=== PATIENT | male | born 1945 | race Caucasian/White ===

== ENCOUNTER → 2017-10-04 10:44 | Outpatient (CLI) | payer MEDICARE, SELFPAY ==
--- NOTE | 2017-10-04 10:52 | VDLE_ITS ---
Reason For Study: swelling Procedure LEFT Exam performed in department. CFV is compressible, spontaneous, phasic, The exam was diagnostic. competent, and demonstrates normal A preliminary report was called and/or faxed augmentation. to Dr. Hairston. FV is compressible, spontaneous, phasic, competent and demonstrates normal augmentation. POP V is compressible, spontaneous, phasic, competent and demonstrates normal augmentation. T/P Trunk is compressible. PTV is compressible. LT PerV is compressible. GSV is partially harvested. Interpretation Summary Deep veins of the left lower extremity are patent and compressible segmentally. There is no evidence of left lower extremity deep vein thrombosis. Valvular competence appears intact within the proximal deep venous system on the left . The left great saphenous vein has been partially harvested. Ordering Physician: Arnulfo Cope Performed By: Sly Auguste RVLeslye
== END ==
PROVIDERS: Family Provider Family Medicine; PCP Family Medicine; Visit Provider Family Medicine
DX: M79.89 Other specified soft tissue disorders (principal)
CPT/HCPCS: 93971

== ENCOUNTER 2017-12-06 17:16 | Inpatient (IN) | payer MEDICARE, SELFPAY ==
[2017-12-06] VITALS (8 sets, daily range): BP systolic 71–113; BP diastolic 50–77; PULSE 86–101; RESP 14–29; TEMP 35.7–36.2; O2SAT 95–100; BMI 20.3; BMI 20.1; BMI 20.2
--- NOTE | 2017-12-06 17:23 | CT_ITS ---
STUDY: CT BRAIN WITHOUT CONTRAST REASON FOR EXAM: Male, 71 years old. Found on floor. Lethargic and diaphoretic. Increasing number of falls. RADIATION DOSAGE (If Supplied By Facility): CTDIvol = ( 44.99 ) mGy, DLP = ( 812.98 ) mGycm TECHNIQUE: Transaxial CT imaging of the brain was performed without administration of intravenous contrast material. Individualized dose optimization techniques were used for this CT. COMPARISON: MRI of the brain, August 18, 2013. FINDINGS: Normal soft tissue structures. Normal calvarium. There is moderate cerebral atrophy with widening of the extra-axial spaces and ventricular dilatation. There are areas of decreased attenuation within the white matter tracts of the supratentorial brain, consistent with microvascular disease changes. Normal basal ganglia and thalami. Normal brainstem. Normal cerebellum. There is no intracranial hemorrhage. There are no findings of an acute ischemic infarction. Normal visualized paranasal sinuses. CT/Brain/Head without Contrast IMPRESSION: Chronic involutional changes without evidence of acute intracranial or calvarial abnormality. There is no major interval change. Electronically Signed: Sanju Mejía DO at 18:13 EDT Tel [phone], Service support ,
--- NOTE | 2017-12-06 17:23 | EKG12_ITS ---
Test Reason : DYSRHYTHMIA Blood Pressure : / mmHG Vent. Rate : 079 BPM Atrial Rate : 079 BPM P-R Int : 158 ms QRS Dur : 086 ms QT Int : 424 ms P-R-T Axes : 090 082 079 degrees QTc Int : 486 ms Normal sinus rhythm Possible Right atrial enlargement Prolonged QT Abnormal ECG Confirmed by J CARLOS CASTILLO, THOMAS ([id number]), graphic editor VALERIO ANGELO ([id number]) on 12/11/2017 2:47:32 PM Referred By: MUNIRA Confirmed By:THOMAS WHITMAN MD
[2017-12-06] MEDS: 0.9% Normal Saline 1,000 ML 1000 ML IV (17:32)
--- NOTE | 2017-12-06 17:35 | RAD_ITS ---
STUDY: X-RAY CHEST REASON FOR EXAM: Male, 71 years old. Fall. Nausea and vomiting. Lethargy. TECHNIQUE: Single AP portable view of the chest. COMPARISON: January 25, 2012. FINDINGS: Telemetry wires overlie the chest. There is hyperinflation of the lungs consistent with chronic obstructive lung disease (COPD). There is no new mass or infiltrate. There is no demonstrated pleural abnormality. Sternal cerclage wires and vascular clips are present from a prior sternotomy and coronary artery bypass graft procedure (CABG). The heart is normal in size. Normal mediastinum and melanie. Normal visualized pulmonary arteries. There is atherosclerotic calcification of the aortic arch with tortuosity. No visualized osseous changes. There is no demonstrated abnormality of the visualized soft tissue structures of the upper abdomen. RAD/Chest 1 View (Portable) IMPRESSION: COPD and evidence of prior CABG procedure. There is no acute findings or interval change. Electronically Signed: Sanju Mejía DO at 17:59 EDT Tel [phone], Service support ,
[2017-12-06] MEDS: 0.9% Normal Saline 1,000 ML 500 ML IV (17:50)
[2017-12-06 17:52] LABS: Absolute Lymphocyte Count 1.36 X10^3/ul (0.83-4.51); Absolute Neutrophil Count 12.8 X10^3/uL (2.0-7.7); Basophil# 0.03 X10^3/uL; Basophil% 0.2 % (0-1); Eosinophils% 0.7 % (0-5); Hematocrit 35.1 % (40-54); Hemoglobin 11.4 g/dl (13.0-16.5); Lymphocyte # 1.36 X10^3/ul (4.0); Lymphocyte % 8.9 % (19-41); Mean Corp Hgb Conc 32.5 g/gl (32-36); Mean Corpuscular Hgb 29.5 pg (27.0-32.0); Mean Corpuscular Volume 90.7 fL (80-94); Mean Platelet Vol. 9.6 fl (6.2-12.0); Monocyte# 0.97 X10^3/uL; Monocyte% 6.3 % (0-10); Neutrophil # 12.77 X10^3/uL (2.7-7.7); Neutrophil % 83.4 % (47-70); Platelet Count 107 K/mm3 (150-450); RBC Distribution Width CV 16.1 % (11.6-14.6); Red Blood Count 3.87 M/mm3 (4.6-6.2); White Blood Count 15.3 K/mm3 (4.4-11.0)
[2017-12-06 17:53] LABS: POSITIVE COUNT NO; POSITIVE DIFFERENTIAL NO; POSITIVE MORPHOLOGY NO
[2017-12-06 17:57] LABS: Bacteria 0 SEEN /hpf (None Seen)
--- NOTE | 2017-12-06 18:00 | RAD_ITS ---
STUDY: X-RAY - LUMBAR SPINE REASON FOR EXAM: Male, 71 years old. Fall. Lower back pain. TECHNIQUE: 3 view(s) of the lumbar spine were obtained. COMPARISON: None FINDINGS: There is straightening of the normal lumbar lordosis. There is no substantial scoliosis. There is a normal alignment of the vertebrae. There is multilevel endplate spondylosis of the lumbar vertebrae. There is multi-level degenerative disc disease with multi-level disc space narrowing. There is no evidence of acute fracture or loss of vertebral axial height. There is atherosclerotic calcification of the abdominal aorta without a demonstrated aneurysm. RAD/Lumbar Spine 2 or 3 Views IMPRESSION: Degenerative changes of the spine, as detailed above. Electronically Signed: Sanju Mejía DO at 18:18 EDT Tel [phone], Service support ,
[2017-12-06 18:04] LABS: ALB/GLOB Ratio 1.2 RATIO (0.9-2.4); AST(SGOT) 19 U/L (15-37); Alanine Aminotransfer ALT/SGPT 24 U/L (16-61); Albumin, Serum 3.3 g/dL (3.2-5.0); Alkaline Phosphatase 70 U/L (45-117); Anion Gap 10 (5-15); BUN 32 mg/dL (7-18); BUN/Creat Ratio 21.9 RATIO (10-20); Calcium,Total 8.3 mg/dL (8.5-10.1); Chloride 104 mmol/L (98-107); Creatinine, Serum 1.46 mg/dL (0.70-1.30); EST Glomerular Filtration Rate 50 mL/min (>60); Est Glom Filt Rate - Afr Amer 61 mL/min (>60); Estimated Creatinine Clearance 55.08 ml/min; Globulin 2.7 g/dL (2.2-4.2); Glucose 251 mg/dL (74-106); Potassium 4.3 mmol/L (3.5-5.1); Sodium Level 139 mmol/L (136-145)
--- NOTE | 2017-12-06 18:15 | ED.DCSUM_ITS ---
- ER Visit Summary Date of Service: 12/06/17 Chief Complaint: Fall, weakness History of Present Illness: The patient is a 71 M who has had ongoing weakness for a while. Today he got up and fell. He hit the side of his head next to a plant. He has had a couple of falls in the past couple months. His states that she attributes it to his MS. Patient complains of pain in his lower back. No LOC when he fell. Patient has a hard time ambulating. The works during the day and she watches him on cameras at the house. No chest pain or shortness of breath. Physical Examination: Vital signs are reviewed and are significant for slight hypotension upon arrival. HEENT exam is normal without trauma. Neck is nontender. Heart is regular rate and rhythm. Lungs are rhonchorous bilaterally. Abdomen is soft and nontender. Back is diffuse lumbar tenderness to palpation. Extremities have evidence of peripheral vascular disease on the lower legs. His neuro exam reveals his GCS is 14. He keeps his eyes closed. He is diffuse overall weakness. Test Results: EKG is sinus rhythm with a rate of 79. Nonspecific ST and T-wave changes. Chest x-ray reveals COPD changes. Lumbar x-ray reveals degenerative changes. CAT scan of the head reveals chronic changes. White blood cell count 10.3, hemoglobin 11.4. Creatinine 1.46. Liver enzymes normal. Urinalysis without infection. Troponin normal. Lactate 3.3 Emergency Department Course and Treatment: Patient was given multiple liters of saline. There are no signs of infection. I feel that his lactic acidosis is likely due to dehydration. Family states he does not eat or drink well at home. His albumin is on the lower end of normal. Repeat blood pressure at 1920 is 99/80. I feel the patient requires admission for further evaluation and IV fluids. He may need physical therapy as well. Treatment Plan: [] Disposition: Admit Impression: Generalized weakness, dehydration, lumbar contusion, lactic acidosis This note was generated with [employer] dictation software. It may contain incorrect words, spelling, and punctuation that were not noted in review of the chart prior to signing ED Disposition - Plan for ED Patient: Chief Complaint: General Illness Referrals: Terell Carvalho MD [Primary Care Provider] -
[2017-12-06 18:40] LABS: Lactic Acid 3.3 mmol/L (0.4-2.0)
[2017-12-06 18:47] LABS: Color, Urine Yellow (Yellow); Glucose, Dipstick Normal (Normal); Ketone-Dipstick 5 mg/dl (Negative); Leukocyte Esterase-Dipstick 25 /ul (Negative); Nitrite-Dipstick Negative (Negative); Occult Blood-Urine 250 /ul (Negative); Protein-Dipstick 100 mg/dl (Negative); Specific Gravity, Urine 1.025 (1.002-1.030); Urine Bilirubin Dipstick Negative (Negative); Urine Clarity Clear (Clear); Urine Urobilinogen 1 mg/dl (Normal)
[2017-12-06 18:56] LABS: Mucous, Urine 1+ /hpf (<or=2+); Red Blood Cells-Urine 0-5 SEEN /hpf (0-5); Squamous Epithelial Cells - UA 0-5 SEEN /hpf (0-5); White Blood Cells 0 SEEN /hpf (0-5)
[2017-12-06 18:57] LABS: Hyaline Cast 10-25 SEEN /lpf (0-5)
[2017-12-06] MEDS: Ketorolac 30 MG/ML Syringe IV (19:17)
[2017-12-06] MEDS: 0.9% Normal Saline 1,000 ML 999 ML IV ×2 (19:17)
--- NOTE | 2017-12-06 19:32 | PCM.HP.STD ---
Problem List (1) Septic shock Status: Acute (2) Weakness Status: Acute History of Present Illness Date of Admission: 12/06/17 Chief Complaint: Multiple falls The patient is a 71 year old M with a significant history of CAD status post CABG in 2011; multiple sclerosis, COPD, hypertension; hyperlipidemia; left knee replacement who was brought to the emergency department because of a fall on the same day of his admission. Per family the patient might have slipped whiles he was getting up in his chair to use the bathroom. Family thinks that the patient may have hit his head when he fell. Patient complained of lightheadedness before his fall. His family reports the patient was in a confused state after the fall Patient reports of dizziness before falling. Patient reports of back pain. Of note, family report that patient has had multiple falls. His family reported patient's hardly drinks water. He typically drinks Ensure and orange juice. At the ED patient was found to have elevated lactic acid of 3.3; leukocytosis of 15.[address] head was unremarkable for any acute pathology. Likewise CT of his lumbar spine and chest x-ray did not show any acute pathology. Past Medical History Allergies Penicillins [PCN] Allergy (Verified 12/06/17 17:23) Angioedema all cillins Allergy (Uncoded 12/06/17 17:23) Angioedema Home Medications: Ambulatory Orders Medication Instructions Recorded Aspirin [Aspirin, Baby] 81 mg PO DAILY 12/06/17 Atorvastatin Calcium 40 mg PO QHS 12/06/17 Budesonide [Budesonide] 2 puff IH DAILY 12/06/17 Duloxetine HCl [Duloxetine HCl] 30 mg PO DAILY 12/06/17 Finasteride [Proscar] 5 mg PO DAILY 12/06/17 Ipratropium/Albuterol Sulfate 2 puff IH DAILY 12/06/17 [Duoneb] Metoprolol Tartrate [Lopressor 25 mg PO BID 12/06/17 (beta shena)] Multivitamin [Daily Multiple 1 each PO DAILY 12/06/17 Vitamin] Tamsulosin HCl [Flomax] 0.4 mg PO DAILY 12/06/17 Vitamin B-12 1 tab PO DAILY 12/06/17 Surgical History: - - CABG, left knee replacement Psychiatric History: No pertinent psych hx Lives: Spouse/ Significant Other Smoking Status: Current every day smoker Alcohol: None - *Family History Maternal History Items: No pertinent history Paternal History Items: No pertinent history Review of Systems Constitutional: Denies: Chills, Fever, Weight Change HEENT: Denies: Head Aches, Sinus Congestion, Sinus Drainage Cardiovascular: Denies: Chest Pain, Palpitations Respiratory: Denies: Cough, Shortness of breath at rest, Sputum production Gastrointestinal: Denies: Abdominal Pain, Nausea, Vomiting Genitourinary: Denies: Dysuria Musculoskeletal: Reports: Back Pain Skin: Reports: - - Abrasion of the right back, - - Operation right knee Neurological: Reports: Balance problems Psychiatric: Denies: Anxiety, Depression, Homicidal Ideations, Suicidal Ideations Hematologic/ Lymphatic: Denies: Easy Bruising, Easy Bleeding VTE Information - Inpt Only VTE Present on Admission: No VTE Mechan Device Prophylaxis: None VTE Pharm Prophylaxis ordered?: Yes Patient Problems: Active and Suspected Problems Septic shock (Acute) Weakness (Acute) - Physical Exam General: Alert, Oriented x3, Cooperative HEENT: Atraumatic, PERRLA, EOMI, Normocephalic Neck: Supple, No JVD, Negative Carotid Bruits Lungs: Clear to auscultation, Normal air movement Cardiovascular: Regular rate Abdomen: Bowel Sounds Present, Soft, Non Tender Extremities: No edema, Capillary Refill Less than 3 Seconds Skin: - - Abrasion on the right back; and abrasion on the right knee. Musculoskeletal: No Muscle Wasting Lymphatic: No Cervical, Supraclavicular, or Inguinal Adenopathy Neurological: - - Hard of hearing Psych/Mental Status: Normal Affect Vital Signs Temp Pulse Resp BP Pulse Ox 97.1 F L 95 24 H 86/57 L 96 12/06/17 17:17 12/06/17 19:00 12/06/17 19:00 12/06/17 19:00 12/06/17 19:00 Oxygen Delivery Method Nasal Cannula Weight: 83.915 kg Body Mass Index (BMI) 20.3 Laboratory Tests Past 24 Hrs 12/06/17 12/06/17 12/06/17 17:27 17:27 17:27 WBC 15.3 H RBC 3.87 L Hgb 11.4 L Hct 35.1 L MCV 90.7 MCH 29.5 MCHC 32.5 RDW 16.1 H RDW Differential 53.0 H Plt Count 107 L MPV 9.6 Immature Gran % (Auto) 0.500 Neut % (Auto) 83.4 H Lymph % (Auto) 8.9 L [place] % (Auto) 6.3 Eos % (Auto) 0.7 Baso % (Auto) 0.2 Absolute Neuts (auto) 12.8 H Absolute Lymphs (auto) 1.36 Total Counted Not Reportable Sodium 139 Potassium 4.3 Chloride 104 Carbon Dioxide 25.0 Anion Gap 10 BUN 32 H Creatinine 1.46 H Estim Creat Clear Calc 55.08 Est GFR (MDRD) Af Amer 61 Est GFR (MDRD) Non-Af 50 L BUN/Creatinine Ratio 21.9 H Glucose 251 H Lactic Acid 3.3 H Calcium 8.3 L Total Bilirubin 0.60 AST 19 ALT 24 Alkaline Phosphatase 70 Troponin I < 0.015 Total Protein 6.0 L Albumin 3.3 Globulin 2.7 Albumin/Globulin Ratio 1.2 Urine Color Urine Clarity Urine pH Ur Specific [place] Urine Protein Urine Glucose (UA) Urine Ketones Urine Occult Blood Urine Nitrite Urine Bilirubin Urine Urobilinogen Ur Leukocyte Esterase Urine RBC Urine WBC Ur Squamous Epith Cells Urine Bacteria Hyaline Casts Urine Mucus 12/06/17 17:50 WBC RBC Hgb Hct MCV MCH MCHC RDW RDW Differential Plt Count MPV Immature Gran % (Auto) Neut % (Auto) Lymph % (Auto) [place] % (Auto) Eos % (Auto) Baso % (Auto) Absolute Neuts (auto) Absolute Lymphs (auto) Total Counted Sodium Potassium Chloride Carbon Dioxide Anion Gap BUN Creatinine Estim Creat Clear Calc Est GFR (MDRD) Af Amer Est GFR (MDRD) Non-Af BUN/Creatinine Ratio Glucose Lactic Acid Calcium Total Bilirubin AST ALT Alkaline Phosphatase Troponin I Total Protein Albumin Globulin Albumin/Globulin Ratio Urine Color Yellow Urine Clarity Clear Urine pH 5.0 Ur Specific [place] 1.025 Urine Protein 100 H Urine Glucose (UA) Normal Urine Ketones 5 H Urine Occult Blood 250 H Urine Nitrite Negative Urine Bilirubin Negative Urine Urobilinogen 1 H Ur Leukocyte Esterase 25 H Urine RBC 0-5 SEEN Urine WBC 0 SEEN Ur Squamous Epith Cells 0-5 SEEN Urine Bacteria 0 SEEN Hyaline Casts 10-25 SEEN Urine Mucus 1+ Assessment/Plan All Active Problems Septic shock (Acute) Weakness (Acute) The patient is a 71 year old M with a significant history of CAD status post CABG in 2011; multiple sclerosis, COPD, hypertension; hyperlipidemia; left knee replacement who was brought to the emergency department because of a fall ; and notably had a elevated lactic acid; leukocytosis and unresponsive to IV boluses concerning for septic shock. Probable septic shock Initially his lactic acidosis was attributed to dehydration. And his fall was attributed to his history of multiple sclerosis and weakness However because patient has received about 3000 MS of IV fluids and continues to have hypotension septic shock is a consideration. Blood cultures ?2 ordered Urine culture ordered The patient is allergic to penicillin Broad-spectrum antibiotics with vancomycin and meropenem started. Another bolus of normal saline 1000 mL's ordered. If patient does not respond to normal saline infusion patient will be transferred to the intensive care units for closer monitoring and likely will be started on pressors. Multiple falls This could be attributed to weakness and multiple sclerosis. Vitamin B12 and vitamin D ordered Schedule Tylenol for pain and as needed oxycodone. Physical therapy and occupational therapy to work with patient. CHAPINCITO His creatinine on admission was 1.46. Creatinine on 03/20/2017 was 1.14; and on 11/21 was 1.13 This could be due to sepsis or prerenal from hypovolemia. Abrasion on right knee and right back Dressing to right knee Wound care consult. CAD status post CABG Aspirin and Lipitor continued COPD Not in acute flare DuoNeb as needed Budesonide continued BPH finasteride continued Depression/anxiety Cymbalta continued DVT prophylaxis Subcutaneous Lovenox Code Visit Inpatient E&M: 38899 Init Hosp L3
[2017-12-06 21:42] LABS: Reflex Lactate? Y
[2017-12-06] MEDS: Docusate Sodium 100 MG Capsule PO (23:10)
[2017-12-06] MEDS: Atorvastatin Calcium 40 MG Tablet PO (23:10)
[2017-12-06] MEDS: 0.9% Normal Saline 1,000 ML 100 ML IV (23:11)
[2017-12-06 23:20] LABS: Lactic Acid 3.2 mmol/L (0.4-2.0)
[2017-12-07] VITALS (26 sets, daily range): BP systolic 25–112; BP diastolic 0–69; PULSE 78–120; RESP 14–36; TEMP 35.4–37.2; O2SAT 86–100
--- NOTE | 2017-12-07 01:54 | PCM.RX.CS ---
Consult Pharmacy has been consulted to manage selected antiobiotic: Vancomycin Type of Consult: New start Suspected Infection: Other Prior Doses of Antibiotics Received/Current Regimen: Medications Vancomycin HCl 1,500 mg/ (Sodium Chloride) 530 mls @ 250 mls/hr IV Q24H ANKIT Discontinued Medications Vancomycin HCl 1,250 mg/ (Sodium Chloride) 275 mls @ 183.3 mls/hr IV X1 ONE Stop: 12/07/17 01:21 Last Admin: 12/07/17 01:42 Dose: 183.3 mls/hr Labs: Sodium 139 mmol/L (136-145) 12/06/17 17:27 Potassium 4.3 mmol/L (3.5-5.1) 12/06/17 17:27 Chloride 104 mmol/L (98-107) 12/06/17 17:27 Carbon Dioxide 25.0 mmol/L (21.0-32.0) 12/06/17 17:27 Anion Gap 10 (5-15) 12/06/17 17:27 BUN 32 mg/dL (7-18) H 12/06/17 17:27 Creatinine 1.46 mg/dL (0.70-1.30) H 12/06/17 17:27 Est GFR (MDRD) Af Amer 61 mL/min (>60) 12/06/17 17:27 Est GFR (MDRD) Non-Af 50 mL/min (>60) L 12/06/17 17:27 BUN/Creatinine Ratio 21.9 RATIO (10-20) H 12/06/17 17:27 Glucose 251 mg/dL (74-106) H 12/06/17 17:27 Weight used for dosin.3 kg Estimated Creatinine Clearance: 55 Goal Trough: 10-15 mcg/mL Pharmacy Plan for Drug Dosing: Pharmacy Service will continue to monitor and adjust dosing as required. Follow-Up Labs: Trough Vancomycin Labs to be done on [date and time ordered]: 12/09/17 @7382
[2017-12-07] MEDS: 0.9% Normal Saline 1,000 ML 999 ML IV ×3 (02:00→10:10)
--- NOTE | 2017-12-07 03:15 | NURSING ---
dr notified again of the pts low bp after the ns bolus, /, ordered another ns bolus, making this the 6th liter of fluid. will transfer to icu if the bp is below sbp 90 again.
[2017-12-07 04:10] LABS: Absolute Neutrophil Count 18.3 X10^3/uL (2.0-7.7); Basophil# 0.03 X10^3/uL; Basophil% 0.1 % (0-1); Differential Indicated SCAN CRITERIA MET; Hematocrit 23.7 % (40-54); Hemoglobin 7.6 g/dl (13.0-16.5); Lymphocyte % 3.3 % (19-41); Mean Corp Hgb Conc 32.1 g/gl (32-36); Mean Corpuscular Volume 93.7 fL (80-94); Mean Platelet Vol. 10.5 fl (6.2-12.0); Monocyte# 1.88 X10^3/uL; Monocyte% 8.9 % (0-10); Neutrophil # 18.29 X10^3/uL (2.7-7.7); Neutrophil % 86.4 % (47-70); POSITIVE COUNT NO; POSITIVE DIFFERENTIAL YES; POSITIVE MORPHOLOGY NO; Platelet Count 74 K/mm3 (150-450); RBC Distribution Width CV 15.9 % (11.6-14.6); RBC Distribution Width SD 51.7 fl (35.1-43.9); Red Blood Count 2.53 M/mm3 (4.6-6.2); White Blood Count 21.2 K/mm3 (4.4-11.0)
--- NOTE | 2017-12-07 04:27 | NURSING ---
pt has only about 20cc urine output in his gillespie, notified, ordered to irrigate it to make sure it is working and it is working well, 30cc ns flushed and had great return.
[2017-12-07 04:30] LABS: Anion Gap 6 (5-15); BUN 37 mg/dL (7-18); BUN/Creat Ratio 19.9 RATIO (10-20); Calcium,Total 7.2 mg/dL (8.5-10.1); Chloride 117 mmol/L (98-107); Creatinine, Serum 1.86 mg/dL (0.70-1.30); EST Glomerular Filtration Rate 38 mL/min (>60); Est Glom Filt Rate - Afr Amer 46 mL/min (>60); Estimated Creatinine Clearance 42.92 ml/min; Glucose 124 mg/dL (74-106); Potassium 5.3 mmol/L (3.5-5.1); Sodium Level 144 mmol/L (136-145)
[2017-12-07 04:31] LABS: Lactic Acid 3.6 mmol/L (0.4-2.0)
--- NOTE | 2017-12-07 04:31 | NURSING ---
pts lactic back, higher 3.6, dr notified.
--- NOTE | 2017-12-07 04:40 | NURSING ---
pt to be transfered to icu for renal failure, hypotention 90/56 and lactic of 3.6.
--- NOTE | 2017-12-07 04:45 | NURSING ---
Report called to Marycarmen BARRON in ICU. Pt being transferred for elevated lactic and hypotension. , Luda, called and notified.
[2017-12-07] MEDS: Acetaminophen 325 MG Tablet 650 MG PO (05:08)
[2017-12-07] MEDS: Hydrocortisone Sod Succinate 100 MG/2 ML Vial 50 MG IV (05:39)
[2017-12-07] MEDS: 0.9% NaCl Peripheral Flush Adult/Peds IV (05:39)
[2017-12-07 05:55] LABS: Differential Comment SCANNED
[2017-12-07 06:04] LABS: International Normalized Ratio 1.6; Prothrombin Time (Protime)PT. 18.7 SECONDS (11.7-14.9)
--- NOTE | 2017-12-07 06:45 | NURSING ---
Dr. Galvan at bedside preparing for central line placement. Pt provided education regarding procedure denies questions.
[2017-12-07 06:49] LABS: M R Staph aureus DNA By PCR Negative (Negative); Probe Check PASS; Specimen Processing Control PASS
[2017-12-07 06:54] LABS: Fibrinogen 113 mg/dl (203-444)
--- NOTE | 2017-12-07 07:03 | NURSING ---
Dr. Galvan successfully placing CVC to RIJ. Dr. Puga bedside. Pt tolerating well.
[2017-12-07 07:05] LABS: D-Dimer Quantitative (DVT/PE) > 20.00 FEU/ug/m (0.27-0.49)
--- NOTE | 2017-12-07 07:20 | RAD_ITS ---
STUDY: X-RAY CHEST REASON FOR EXAM: Male, 71 years old. Line placement TECHNIQUE: 2 AP portable views, 2 views needed as the first you did not include the costophrenic angles. COMPARISON: Yesterday FINDINGS: EKG leads overlie the chest. A right IJ central venous catheter is been placed since the previous study, tip is in the mid SVC. No pneumothorax or mediastinal shift. Lungs are hyperexpanded with chronic interstitial changes, no superimposed acute pulmonary process. There is no demonstrated pleural abnormality. Sternal cerclage wires and vascular clips are present from a prior sternotomy and coronary artery bypass graft procedure (CABG). Normal mediastinum and melanie. Normal visualized pulmonary arteries. Normal visualized aortic arch and descending thoracic aorta. There are diffuse degenerative changes of the visualized thoracic spine. There is degenerative osteoarthritis of the bilateral shoulders. There is no demonstrated abnormality of the visualized soft tissue structures of the upper abdomen. RAD/CXR for Line Placement IMPRESSION: Right IJ central venous catheter tip in the mid SVC, no pneumothorax or mediastinal shift. No acute pulmonary process Electronically Signed: Javier Ryan MD at 8:10 EDT , Service support ,
--- NOTE | 2017-12-07 07:28 | CT_ITS ---
STUDY: CT ABDOMEN AND PELVIS WITH AND WITHOUT CONTRAST REASON FOR EXAM: Male, 71 years old. Right lower quadrant pain, sepsis RADIATION DOSAGE (If Supplied By Facility): CTDIvol = ( 21.09 ) mGy, DLP = ( 2431.67 ) mGycm TECHNIQUE: Transaxial images were obtained from the dome of the diaphragm to the symphysis pubis without oral contrast. 100 ml of Isovue 300 contrast was administered. Sagittal and coronal images were reconstructed. Delayed images performed Individualized dose optimization techniques were used for this CT. COMPARISON: None. FINDINGS: Cuts through the lung bases show chronic interstitial changes with small free-flowing pleural effusions larger on the left than the right. There is associated atelectasis in the left lung base. The visualized portions of the heart are within normal limits. Liver shows some nodular change and is smaller than expected likely due to cirrhosis. There is free fluid around the periphery of the liver with Hounsfield units suggesting hemorrhage rather than ascites. There is non-visualization of the gallbladder, which may be secondary to either contraction or a prior cholecystectomy. Normal spleen. There are pancreatic calcifications suggesting previous pancreatitis. There is a large peripherally calcified abdominal aortic aneurysm measuring approximately 9.3 x 8.8 cm surrounded by fluid and stranding suspicious for leaking aneurysm. The delayed images with contrast suggesting the leak is occurring in the distal left lateral abdominal aorta on axial images 42 through 46, series #6. There is nonspecific thickening of small and large bowel loops likely due to the fluid within the abdomen, which again is likely hemorrhage. Is seen down both paracolic gutters and into the pelvis. Bladder is collapsed around a Contreras catheter. Bony structures show extensive degenerative change in the lumbar spine and pelvis. The right hip has been previously replaced. No demonstrated hardware complication noted. There is significant left hip arthrosis with subchondral changes suggesting AVN. CT/CT Abd/Pelvis W/WO Contrast IMPRESSION: There is a large peripherally calcified abdominal aortic aneurysm which I suspect is hemorrhaging. The aneurysm measures approximately 9.3 x 8.8 cm in transverse dimension and 15 cm in CC length. Hemorrhagic fluid seen around the periphery of the liver and spleen down both paracolic gutters and into the pelvis. Findings discussed with the whiskey regauger prior to dictation and has arranged for patient to be transferred. No suspicious solid organ abnormality Nonspecific thickening of small and large bowel loops, likely due to the hemorrhage within the abdomen Extensive degenerative bony changes N.B. : The above information has been verbally conveyed by Javier Ryan MD to Bentley Puga, Covering Physician, on 12/07/2017 09:56:40 (ET). Electronically Signed: Javier Ryan MD at 9:56 EDT , Service support ,
--- NOTE | 2017-12-07 07:29 | PCM.PN.BLA ---
Progress Note Procedure: [] Informed consent: The procedure plan, including medications, benefits and potential complications were discussed with family over the phone. The potential need to secondary procedures such as chest tube placement to evacuate a pneumothorax, was also conveyed. The patient was appropriately placed to maximize comfort. The site was cleansed and allowed to dry prior to draping the patient. The skin overlying the access site was infiltrated with lidocaine. The vein was successfully cannulated and a guidewire was inserted with the aid of an ultrasound. The needle was removed and the vein dilator was advanced over the guidewire. The dilator was removed and a catheter was threaded over the guidewire while maintaining control over the guidewire. The guidewire was removed and each port was sequentially aspirated and then flushed with saline. The catheter was sutured in place and the site was dressed using sterile technique. A chest x-ray was obtained and the tip is []. The patient tolerated the procedure well. Code Visit Procedures: 49286 Insert Non-tunnel CV Cath
--- NOTE | 2017-12-07 07:34 | PCM.CON.CC ---
Problem List (1) Septic shock Status: Acute (2) Weakness Status: Acute (3) BPH (benign prostatic hyperplasia) Status: Chronic Qualifiers: Lower urinary tract symptom presence: symptoms present Lower urinary tract symptom detail: urinary frequency Qualified Code(s): N40.1 - Benign prostatic hyperplasia with lower urinary tract symptoms; R35.0 - Frequency of micturition (4) Hypertension Status: Chronic Qualifiers: Hypertension type: essential hypertension Qualified Code(s): I10 - Essential (primary) hypertension (5) Multiple sclerosis Status: Chronic (6) COPD (chronic obstructive pulmonary disease) Status: Acute (7) CAD (coronary artery disease) Status: Acute Qualifiers: Coronary Disease-Associated Artery/Lesion type: resighini artery Crow vs. transplanted heart: resighini heart Associated angina: without angina Qualified Code(s): I25.10 - Atherosclerotic heart disease of resighini coronary artery without angina pectoris (8) History of left knee replacement Status: Resolved Reason for Consult Date of Consultation: 12/07/17 Reason for Consultation: Septic shock History of Present Illness: The patient is a 71 year old M, with past medical history listed below, who presented to [facility] on 12/06/2017 secondary to progressive weakness and fall. Patient reportedly had been having increased falls over the last couple of months and had attributed to his multiple sclerosis. Patient reportedly had no loss of consciousness after the fall, but had reported a pain in his lower back. Patient had denied any chest pain, shortness of breath or productive cough. On evaluation in the emergency room, patient was noted to have hyperinflation on chest x-ray without infiltrate. CT of the head was within normal limits. Patient did have an elevated creatinine 1.46 and a lactate of 3.3. Patient was given multiple liters of saline secondary to presumed dehydration from decreased p.o. intake. Patient [facility]. While on the [facility] floor, patient had progressive achy right lower quadrant abdominal pain. Patient was also noted to be hypotensive. Patient was transferred to the intensive care unit for further monitoring. On my evaluation, patient had Levophed running at 8 mcg through a peripheral IV. Patient is hard of hearing, but states significant pain localized to the right lower quadrant. Patient denied any hematemesis, melena or hematochezia. Patient does suffer from BPH at baseline but denied any dysuria or increased urinary frequency compared to previous. Patient was also noted to have worsening creatinine, leukocytosis and lactic acid. Central line was placed by nocturnal hospitalist under my direct supervision without complication. Chest x-ray shows appropriate placement. Patient was initiated on meropenem. Patient does have a reported history of angioedema to penicillins, but is denying any sore throat, tongue swelling or shortness of breath at this time. Review of systems otherwise negative ?10 systems. Past Medical History Past Medical History (Chronic Problems): Chronic Problems BPH (benign prostatic hyperplasia) (Chronic) Hypertension (Chronic) Multiple sclerosis (Chronic) Allergies Penicillins [PCN] Allergy (Verified 12/06/17 17:23) Angioedema all cillins Allergy (Uncoded 12/06/17 17:23) Angioedema Home Medications: Ambulatory Orders Medication Instructions Recorded Aspirin [Aspirin, Baby] 81 mg PO DAILY 12/06/17 Atorvastatin Calcium 40 mg PO QHS 12/06/17 Budesonide [Budesonide] 2 puff IH DAILY 12/06/17 Duloxetine HCl [Duloxetine HCl] 30 mg PO DAILY 12/06/17 Finasteride [Proscar] 5 mg PO DAILY 12/06/17 Ipratropium/Albuterol Sulfate 2 puff IH DAILY 12/06/17 [Duoneb] Metoprolol Tartrate [Lopressor 25 mg PO BID 12/06/17 (beta shena)] Multivitamin [Daily Multiple 1 each PO DAILY 12/06/17 Vitamin] Tamsulosin HCl [Flomax] 0.4 mg PO DAILY 12/06/17 Vitamin B-12 1 tab PO DAILY 12/06/17 Surgical History: - - CABG, left knee replacement Psychiatric History: No pertinent psych hx Lives: Spouse/ Significant Other Smoking Status: Current every day smoker Alcohol: None - *Family History Maternal History Items: No pertinent history Paternal History Items: No pertinent history Review of Systems Comment: See HPI Patient Problems: Active and Suspected Problems Septic shock (Acute) Weakness (Acute) COPD (chronic obstructive pulmonary disease) (Acute) CAD (coronary artery disease) (Acute) Objective: Chest x-rays were personally reviewed. These show no acute infiltrate. Last chest x-ray does not appear to have a pneumothorax and central line is in appropriate position. CT head was unremarkable. - Physical Exam General: Alert, Oriented x3, Cooperative, - - Mild distress. Appears stated age. Hard of hearing. HEENT: Atraumatic, PERRLA, EOMI, Normocephalic, - - No scleral icterus or injection noted. Oral: Moist Mucosa, No Gingival or Mucosal Lesions/ Ulcerations Neck: Supple, No Nodes, Trachea Midline, JVD, Right Lungs: No rhonchi, No wheeze, No rales, Diminished, - - Symmetric expansion. No dullness to percussion. Cardiovascular: Regular rate, Regular Rhythm, Normal S1, Normal S2, No murmurs, No rub noted, No Gallop Abdomen: Hypoactive Bowel Sounds, Distended - Slightly, Guarding, Tender - Right lower quadrant Extremities: No clubbing, No cyanosis, No edema, Diminished Peripheral Pulses Skin: - - Abrasion noted on the back. Healed scar of left knee. TLC site is clean, dry and intact. Musculoskeletal: No Tenderness to Palpation of Joints or Extremities Lymphatic: No Cervical, Supraclavicular, or Inguinal Adenopathy Neurological: Neuro grossly intact, Motor Exam 5/5 strength throughout, Sensory exam intact to light touch and pain Psych/Mental Status: Alert and oriented to time, place, person, mood and affect Vital Signs Temp Pulse Resp BP Pulse Ox 36.3 C L 93 18 90/56 L 100 12/07/17 04:40 12/07/17 04:59 12/07/17 04:41 12/07/17 04:40 12/07/17 04:41 Weight: 89.3 kg Intake and Output for Last 24 Hours 12/05/17 12/06/17 12/07/17 23:59 23:59 23:59 Intake Total 2662 / 2662 Balance 2662 / 2662 Laboratory Tests 12/06/17 12/06/17 12/06/17 17:27 17:27 17:27 WBC 15.3 H RBC 3.87 L Hgb 11.4 L Hct 35.1 L MCV 90.7 MCH 29.5 MCHC 32.5 RDW 16.1 H RDW Differential 53.0 H Plt Count 107 L MPV 9.6 Immature Gran % (Auto) 0.500 Neut % (Auto) 83.4 H Lymph % (Auto) 8.9 L Island % (Auto) 6.3 Eos % (Auto) 0.7 Baso % (Auto) 0.2 Absolute Neuts (auto) 12.8 H Absolute Lymphs (auto) 1.36 Total Counted Not Reportable Differential Comment PT INR APTT Fibrinogen D-Dimer Quant (PE/DVT) Sodium 139 Potassium 4.3 Chloride 104 Carbon Dioxide 25.0 Anion Gap 10 BUN 32 H Creatinine 1.46 H Estim Creat Clear Calc 55.08 Est GFR (MDRD) Af Amer 61 Est GFR (MDRD) Non-Af 50 L BUN/Creatinine Ratio 21.9 H Glucose 251 H Lactic Acid 3.3 H Calcium 8.3 L Total Bilirubin 0.60 AST 19 ALT 24 Alkaline Phosphatase 70 Troponin I < 0.015 Total Protein 6.0 L Albumin 3.3 Globulin 2.7 Albumin/Globulin Ratio 1.2 Urine Color Urine Clarity Urine pH Ur Specific [place] Urine Protein Urine Glucose (UA) Urine Ketones Urine Occult Blood Urine Nitrite Urine Bilirubin Urine Urobilinogen Ur Leukocyte Esterase Urine RBC Urine WBC Ur Squamous Epith Cells Urine Bacteria Hyaline Casts Urine Mucus MRSA (PCR) 12/06/17 12/06/17 12/07/17 17:50 22:06 03:45 WBC RBC Hgb Hct MCV MCH MCHC RDW RDW Differential Plt Count MPV Immature Gran % (Auto) Neut % (Auto) Lymph % (Auto) Island % (Auto) Eos % (Auto) Baso % (Auto) Absolute Neuts (auto) Absolute Lymphs (auto) Total Counted Differential Comment PT INR APTT Fibrinogen D-Dimer Quant (PE/DVT) Sodium Potassium Chloride Carbon Dioxide Anion Gap BUN Creatinine Estim Creat Clear Calc Est GFR (MDRD) Af Amer Est GFR (MDRD) Non-Af BUN/Creatinine Ratio Glucose Lactic Acid 3.2 H 3.6 H Calcium Total Bilirubin AST ALT Alkaline Phosphatase Troponin I Total Protein Albumin Globulin Albumin/Globulin Ratio Urine Color Yellow Urine Clarity Clear Urine pH 5.0 Ur Specific [place] 1.025 Urine Protein 100 H Urine Glucose (UA) Normal Urine Ketones 5 H Urine Occult Blood 250 H Urine Nitrite Negative Urine Bilirubin Negative Urine Urobilinogen 1 H Ur Leukocyte Esterase 25 H Urine RBC 0-5 SEEN Urine WBC 0 SEEN Ur Squamous Epith Cells 0-5 SEEN Urine Bacteria 0 SEEN Hyaline Casts 10-25 SEEN Urine Mucus 1+ MRSA (PCR) 12/07/17 12/07/17 12/07/17 03:46 03:46 05:10 WBC 21.2 H RBC 2.53 L Hgb 7.6 L Hct 23.7 L MCV 93.7 MCH 30.0 MCHC 32.1 RDW 15.9 H RDW Differential 51.7 H Plt Count 74 L MPV 10.5 Immature Gran % (Auto) 1.300 H Neut % (Auto) 86.4 H Lymph % (Auto) 3.3 L Island % (Auto) 8.9 Eos % (Auto) 0.0 Baso % (Auto) 0.1 Absolute Neuts (auto) 18.3 H Absolute Lymphs (auto) 0.70 L Total Counted Not Reportable Differential Comment SCANNED PT INR APTT Fibrinogen D-Dimer Quant (PE/DVT) Sodium 144 Potassium 5.3 H Chloride 117 H Carbon Dioxide 21.0 Anion Gap 6 BUN 37 H Creatinine 1.86 H Estim Creat Clear Calc 42.92 Est GFR (MDRD) Af Amer 46 L Est GFR (MDRD) Non-Af 38 L BUN/Creatinine Ratio 19.9 Glucose 124 H Lactic Acid Calcium 7.2 L Total Bilirubin AST ALT Alkaline Phosphatase Troponin I Total Protein Albumin Globulin Albumin/Globulin Ratio Urine Color Urine Clarity Urine pH Ur Specific [place] Urine Protein Urine Glucose (UA) Urine Ketones Urine Occult Blood Urine Nitrite Urine Bilirubin Urine Urobilinogen Ur Leukocyte Esterase Urine RBC Urine WBC Ur Squamous Epith Cells Urine Bacteria Hyaline Casts Urine Mucus MRSA (PCR) Negative 12/07/17 05:44 WBC RBC Hgb Hct MCV MCH MCHC RDW RDW Differential Plt Count MPV Immature Gran % (Auto) Neut % (Auto) Lymph % (Auto) Island % (Auto) Eos % (Auto) Baso % (Auto) Absolute Neuts (auto) Absolute Lymphs (auto) Total Counted Differential Comment PT 18.7 H INR 1.6 APTT 35.0 Fibrinogen 113 L D-Dimer Quant (PE/DVT) > 20.00 H* Sodium Potassium Chloride Carbon Dioxide Anion Gap BUN Creatinine Estim Creat Clear Calc Est GFR (MDRD) Af Amer Est GFR (MDRD) Non-Af BUN/Creatinine Ratio Glucose Lactic Acid Calcium Total Bilirubin AST ALT Alkaline Phosphatase Troponin I Total Protein Albumin Globulin Albumin/Globulin Ratio Urine Color Urine Clarity Urine pH Ur Specific [place] Urine Protein Urine Glucose (UA) Urine Ketones Urine Occult Blood Urine Nitrite Urine Bilirubin Urine Urobilinogen Ur Leukocyte Esterase Urine RBC Urine WBC Ur Squamous Epith Cells Urine Bacteria Hyaline Casts Urine Mucus MRSA (PCR) Clinical Impression(s) from Imaging Studies Brain CT 12/06/17 17:23 IMPRESSION: Chronic involutional changes without evidence of acute intracranial or calvarial abnormality. There is no major interval change. Electronically Signed: Sanju MejíaDO at 18:13 EDT Tel [phone], Service support , Chest X-Ray 12/06/17 17:35 IMPRESSION: COPD and evidence of prior CABG procedure. There is no acute findings or interval change. Electronically Signed: Sanju AlfonzoDO at 17:59 EDT Tel [phone], Service support , Lumbar Spine X-Ray 12/06/17 18:00 IMPRESSION: Degenerative changes of the spine, as detailed above. Electronically Signed: Sanju AlfonzoDO at 18:18 EDT Tel [phone], Service support , Assessment/Plan Active and Suspected Problems Septic shock (Acute) Weakness (Acute) COPD (chronic obstructive pulmonary disease) (Acute) CAD (coronary artery disease) (Acute) RECOMMENDATIONS: 1. Continue Levophed to keep map greater than [address] of the abdomen with p.o. contrast 3. Probable surgery consult pending CT results 4. Continue empiric antibiotics 5. Monitor for angioedema 6. Repeat CBC and coagulation studies at noon IMPRESSIONS: 1. Septic shock from probable intra-abdominal source Exact etiology is unclear at this time. Patient has received significant amount of fluid and has been initiated on pressor therapy. Use Levophed to keep maps greater than 65. Unable to use IV contrast with patient's current renal function, so will attempt p.o. contrast. High clinical suspicion that surgery or IR will be required for source control. Patient does have a reported penicillin allergy with angioedema. However, patient did receive meropenem and does not appear to have any facial swelling. Patient was placed on stress dose steroids, but these can likely be discontinued in 24-48 hours if infectious source can be controlled. Cultures have been obtained. 2. Possible DIC Patient was septic shock, thrombocytopenia and depressed fibrinogen. Patient has no active source of bleeding at this time. Will repeat CBC and coagulation studies in 6 hours. Likely give cryo if patient develops bleeding complications. Patient is on appropriate antibiotics at this time. 3. Acute kidney injury/failure with hyperkalemia and hypocalcemia Likely secondary to septic shock. Patient likely has an element of acidosis associated with lactic acid leading to hyperkalemia. Will administer calcium. Support blood pressure. No indication for renal replacement therapy at this time. 4. Reported COPD Patient with hyperinflation on chest x-ray. Patient does not appear to be in acute exacerbation at this time. Patient can continue on therapeutic substitution for home medications. Laboratory workup is not consistent with chronic CO2 retention. 5. Multiple sclerosis/hypertension/advanced age/active tobacco use Complicates care, management, recovery and prognosis. Antihypertensive medications will be held given acute condition. Nicotine patch can be provided if necessary. Addendum 10:55 AM: Shortly after 9 AM, I was called emergently by the radiology department for concern of ruptured AAA. Patient did have marginal renal function, but given the severity of findings, IV contrast was administered. Patient was evaluated in the CT scanner and wet read was notable for a 10 cm AAA with extravasation at the [address] Redding was notified and immediately arranged for transportation to [facility]. [facility]termaker and vascular surgeon was personally updated on the patient's condition. After arriving back in the intensive care unit, patient's was updated on current condition. Patient was noted to have respirations in the 40s and complaining of shortness of breath. Given patient's need for emergent transfer, patient was intubated using 20 mg of etomidate and 50 mcg of fentanyl. Patient was placed on a Versed drip. Patient started to become more tenuous from a blood pressure standpoint. Patient ended up requiring another 2 L of normal saline and 5 units of packed red blood cells were hung. Attempts at radial art line and right brachial art line were unsuccessful by myself and [facility] transport. Given delay, patient was transported without arterial line. Patient was on Levophed at 40 mcg and vasopressin. Versed was running at 2 mg. All blood products were administered using pressure bag. Patient was transported by [facility] at 10:52 AM with a dopplerable femoral pulse and spontaneous movement of the feet. Patient did have significant worsening of abdominal distention. Did verify with transport that CT imaging was in the envelope along with documentation. TIME: 180 minutes critical care time spent addressing patient's septic shock, possible DIC, acute kidney injury, review of all data and collaboration with care team (5:40 AM to 8 AM) Code Visit Procedures: 55150 Critial Care 1st Hr [id number]: Other Procedure See Report - [id number] x 4 (180 minutes of total critical care time)
--- NOTE | 2017-12-07 07:45 | CON.PCM_ITS ---
Problem List (1) Septic shock Status: Acute (2) Weakness Status: Acute (3) BPH (benign prostatic hyperplasia) Status: Chronic Qualifiers: Lower urinary tract symptom presence: symptoms present Lower urinary tract symptom detail: urinary frequency Qualified Code(s): N40.1 - Benign prostatic hyperplasia with lower urinary tract symptoms; R35.0 - Frequency of micturition (4) Hypertension Status: Chronic Qualifiers: Hypertension type: essential hypertension Qualified Code(s): I10 - Essential (primary) hypertension (5) Multiple sclerosis Status: Chronic (6) COPD (chronic obstructive pulmonary disease) Status: Acute (7) CAD (coronary artery disease) Status: Acute Qualifiers: Coronary Disease-Associated Artery/Lesion type: [place] artery [place] vs. transplanted heart: [place] heart Associated angina: without angina Qualified Code(s): I25.10 - Atherosclerotic heart disease of [place] coronary artery without angina pectoris (8) History of left knee replacement Status: Resolved Reason for Consult Date of Consultation: 12/07/17 Reason for Consultation: Septic shock History of Present Illness: The patient is a 71 year old M, with past medical history listed below, who presented to [facility] on 12/06/2017 secondary to progressive weakness and fall. Patient reportedly had been having increased falls over the last couple of months and had attributed to his multiple sclerosis. Patient reportedly had no loss of consciousness after the fall, but had reported a pain in his lower back. Patient had denied any chest pain, shortness of breath or productive cough. On evaluation in the emergency room, patient was noted to have hyperinflation on chest x-ray without infiltrate. CT of the head was within normal limits. Patient did have an elevated creatinine 1.46 and a lactate of 3.3. Patient was given multiple liters of saline secondary to presumed dehydration from decreased p.o. intake. [facility], patient had progressive achy right lower quadrant abdominal pain. Patient was also noted to be hypotensive. Patient was transferred to the intensive care unit for further monitoring. On my evaluation , patient had Levophed running at 8 mcg through a peripheral IV. Patient is hard of hearing, but states significant pain localized to the right lower quadrant. Patient denied any hematemesis, melena or hematochezia. Patient does suffer from BPH at baseline but denied any dysuria or increased urinary frequency compared to previous. Patient was also noted to have worsening creatinine, leukocytosis and lactic acid. Central line was placed by nocturnal hospitalist under my direct supervision without complication. Chest x-ray shows appropriate placement. Patient was initiated on meropenem. Patient does have a reported history of angioedema to penicillins, but is denying any sore throat, tongue swelling or shortness of breath at this time. Review of systems otherwise negative ?10 systems. Past Medical History Past Medical History (Chronic Problems): Chronic Problems BPH (benign prostatic hyperplasia) (Chronic) Hypertension (Chronic) Multiple sclerosis (Chronic) Allergies Penicillins [PCN] Allergy (Verified 12/06/17 17:23) Angioedema all cillins Allergy (Uncoded 12/06/17 17:23) Angioedema Home Medications: Ambulatory Orders Medication Instructions Recorded Aspirin [Aspirin, Baby] 81 mg PO DAILY 12/06/17 Atorvastatin Calcium 40 mg PO QHS 12/06/17 Budesonide [Budesonide] 2 puff IH DAILY 12/06/17 Duloxetine HCl [Duloxetine HCl] 30 mg PO DAILY 12/06/17 Finasteride [Proscar] 5 mg PO DAILY 12/06/17 Ipratropium/Albuterol Sulfate 2 puff IH DAILY 12/06/17 [Duoneb] Metoprolol Tartrate [Lopressor 25 mg PO BID 12/06/17 (beta shena)] Multivitamin [Daily Multiple 1 each PO DAILY 12/06/17 Vitamin] Tamsulosin HCl [Flomax] 0.4 mg PO DAILY 12/06/17 Vitamin B-12 1 tab PO DAILY 12/06/17 Surgical History: - - CABG, left knee replacement Psychiatric History: No pertinent psych hx Lives: Spouse/ Significant Other Smoking Status: Current every day smoker Alcohol: None - *Family History Maternal History Items: No pertinent history Paternal History Items: No pertinent history Review of Systems Comment: See HPI Patient Problems: Active and Suspected Problems Septic shock (Acute) Weakness (Acute) COPD (chronic obstructive pulmonary disease) (Acute) CAD (coronary artery disease) (Acute) Objective: Chest x-rays were personally reviewed. These show no acute infiltrate. Last chest x-ray does not appear to have a pneumothorax and central line is in appropriate position. CT head was unremarkable. - Physical Exam General: Alert, Oriented x3, Cooperative, - - Mild distress. Appears stated age. Hard of hearing. HEENT: Atraumatic, PERRLA, EOMI, Normocephalic, - - No scleral icterus or injection noted. Oral: Moist Mucosa, No Gingival or Mucosal Lesions/ Ulcerations Neck: Supple, No Nodes, Trachea Midline, JVD, Right Lungs: No rhonchi, No wheeze, No rales, Diminished, - - Symmetric expansion. No dullness to percussion. Cardiovascular: Regular rate, Regular Rhythm, Normal S1, Normal S2, No murmurs, No rub noted, No Gallop Abdomen: Hypoactive Bowel Sounds, Distended - Slightly, Guarding, Tender - Right lower quadrant Extremities: No clubbing, No cyanosis, No edema, Diminished Peripheral Pulses Skin: - - Abrasion noted on the back. Healed scar of left knee. TLC site is clean, dry and intact. Musculoskeletal: No Tenderness to Palpation of Joints or Extremities Lymphatic: No Cervical, Supraclavicular, or Inguinal Adenopathy Neurological: Neuro grossly intact, Motor Exam 5/5 strength throughout, Sensory exam intact to light touch and pain Psych/Mental Status: Alert and oriented to time, place, person, mood and affect Vital Signs Temp Pulse Resp BP Pulse Ox 36.3 C L 93 18 90/56 L 100 12/07/17 04:40 12/07/17 04:59 12/07/17 04:41 12/07/17 04:40 12/07/17 04:41 Weight: 89.3 kg Intake and Output for Last 24 Hours 12/05/17 12/06/17 12/07/17 23:59 23:59 23:59 Intake Total 2662 / 2662 Balance 2662 / 2662 Laboratory Tests 12/06/17 12/06/17 12/06/17 17:27 17:27 17:27 WBC 15.3 H RBC 3.87 L Hgb 11.4 L Hct 35.1 L MCV 90.7 MCH 29.5 MCHC 32.5 RDW 16.1 H RDW Differential 53.0 H Plt Count 107 L MPV 9.6 Immature Gran % (Auto) 0.500 Neut % (Auto) 83.4 H Lymph % (Auto) 8.9 L [place] % (Auto) 6.3 Eos % (Auto) 0.7 Baso % (Auto) 0.2 Absolute Neuts (auto) 12.8 H Absolute Lymphs (auto) 1.36 Total Counted Not Reportable Differential Comment PT INR APTT Fibrinogen D-Dimer Quant (PE/DVT) Sodium 139 Potassium 4.3 Chloride 104 Carbon Dioxide 25.0 Anion Gap 10 BUN 32 H Creatinine 1.46 H Estim Creat Clear Calc 55.08 Est GFR (MDRD) Af Amer 61 Est GFR (MDRD) Non-Af 50 L BUN/Creatinine Ratio 21.9 H Glucose 251 H Lactic Acid 3.3 H Calcium 8.3 L Total Bilirubin 0.60 AST 19 ALT 24 Alkaline Phosphatase 70 Troponin I < 0.015 Total Protein 6.0 L Albumin 3.3 Globulin 2.7 Albumin/Globulin Ratio 1.2 Urine Color Urine Clarity Urine pH Ur Specific [place] Urine Protein Urine Glucose (UA) Urine Ketones Urine Occult Blood Urine Nitrite Urine Bilirubin Urine Urobilinogen Ur Leukocyte Esterase Urine RBC Urine WBC Ur Squamous Epith Cells Urine Bacteria Hyaline Casts Urine Mucus MRSA (PCR) 12/06/17 12/06/17 12/07/17 17:50 22:06 03:45 WBC RBC Hgb Hct MCV MCH MCHC RDW RDW Differential Plt Count MPV Immature Gran % (Auto) Neut % (Auto) Lymph % (Auto) [place] % (Auto) Eos % (Auto) Baso % (Auto) Absolute Neuts (auto) Absolute Lymphs (auto) Total Counted Differential Comment PT INR APTT Fibrinogen D-Dimer Quant (PE/DVT) Sodium Potassium Chloride Carbon Dioxide Anion Gap BUN Creatinine Estim Creat Clear Calc Est GFR (MDRD) Af Amer Est GFR (MDRD) Non-Af BUN/Creatinine Ratio Glucose Lactic Acid 3.2 H 3.6 H Calcium Total Bilirubin AST ALT Alkaline Phosphatase Troponin I Total Protein Albumin Globulin Albumin/Globulin Ratio Urine Color Yellow Urine Clarity Clear Urine pH 5.0 Ur Specific [place] 1.025 Urine Protein 100 H Urine Glucose (UA) Normal Urine Ketones 5 H Urine Occult Blood 250 H Urine Nitrite Negative Urine Bilirubin Negative Urine Urobilinogen 1 H Ur Leukocyte Esterase 25 H Urine RBC 0-5 SEEN Urine WBC 0 SEEN Ur Squamous Epith Cells 0-5 SEEN Urine Bacteria 0 SEEN Hyaline Casts 10-25 SEEN Urine Mucus 1+ MRSA (PCR) 12/07/17 12/07/17 12/07/17 03:46 03:46 05:10 WBC 21.2 H RBC 2.53 L Hgb 7.6 L Hct 23.7 L MCV 93.7 MCH 30.0 MCHC 32.1 RDW 15.9 H RDW Differential 51.7 H Plt Count 74 L MPV 10.5 Immature Gran % (Auto) 1.300 H Neut % (Auto) 86.4 H Lymph % (Auto) 3.3 L [place] % (Auto) 8.9 Eos % (Auto) 0.0 Baso % (Auto) 0.1 Absolute Neuts (auto) 18.3 H Absolute Lymphs (auto) 0.70 L Total Counted Not Reportable Differential Comment SCANNED PT INR APTT Fibrinogen D-Dimer Quant (PE/DVT) Sodium 144 Potassium 5.3 H Chloride 117 H Carbon Dioxide 21.0 Anion Gap 6 BUN 37 H Creatinine 1.86 H Estim Creat Clear Calc 42.92 Est GFR (MDRD) Af Amer 46 L Est GFR (MDRD) Non-Af 38 L BUN/Creatinine Ratio 19.9 Glucose 124 H Lactic Acid Calcium 7.2 L Total Bilirubin AST ALT Alkaline Phosphatase Troponin I Total Protein Albumin Globulin Albumin/Globulin Ratio Urine Color Urine Clarity Urine pH Ur Specific [place] Urine Protein Urine Glucose (UA) Urine Ketones Urine Occult Blood Urine Nitrite Urine Bilirubin Urine Urobilinogen Ur Leukocyte Esterase Urine RBC Urine WBC Ur Squamous Epith Cells Urine Bacteria Hyaline Casts Urine Mucus MRSA (PCR) Negative 12/07/17 05:44 WBC RBC Hgb Hct MCV MCH MCHC RDW RDW Differential Plt Count MPV Immature Gran % (Auto) Neut % (Auto) Lymph % (Auto) [place] % (Auto) Eos % (Auto) Baso % (Auto) Absolute Neuts (auto) Absolute Lymphs (auto) Total Counted Differential Comment PT 18.7 H INR 1.6 APTT 35.0 Fibrinogen 113 L D-Dimer Quant (PE/DVT) > 20.00 H* Sodium Potassium Chloride Carbon Dioxide Anion Gap BUN Creatinine Estim Creat Clear Calc Est GFR (MDRD) Af Amer Est GFR (MDRD) Non-Af BUN/Creatinine Ratio Glucose Lactic Acid Calcium Total Bilirubin AST ALT Alkaline Phosphatase Troponin I Total Protein Albumin Globulin Albumin/Globulin Ratio Urine Color Urine Clarity Urine pH Ur Specific [place] Urine Protein Urine Glucose (UA) Urine Ketones Urine Occult Blood Urine Nitrite Urine Bilirubin Urine Urobilinogen Ur Leukocyte Esterase Urine RBC Urine WBC Ur Squamous Epith Cells Urine Bacteria Hyaline Casts Urine Mucus MRSA (PCR) Clinical Impression(s) from Imaging Studies Brain CT 12/06/17 17:23 IMPRESSION: Chronic involutional changes without evidence of acute intracranial or calvarial abnormality. There is no major interval change. Electronically Signed: Sanju MejíaDO at 18:13 EDT Tel [phone], Service support , Chest X-Ray 12/06/17 17:35 IMPRESSION: COPD and evidence of prior CABG procedure. There is no acute findings or interval change. Electronically Signed: Sanju AlfonzoDO at 17:59 EDT Tel [phone], Service support , Lumbar Spine X-Ray 12/06/17 18:00 IMPRESSION: Degenerative changes of the spine, as detailed above. Electronically Signed: Sanju AlfonzoDO at 18:18 EDT Tel [phone], Service support , Assessment/Plan Active and Suspected Problems Septic shock (Acute) Weakness (Acute) COPD (chronic obstructive pulmonary disease) (Acute) CAD (coronary artery disease) (Acute) RECOMMENDATIONS: 1. Continue Levophed to keep map greater than [address] of the abdomen with p.o. contrast 3. Probable surgery consult pending CT results 4. Continue empiric antibiotics 5. Monitor for angioedema 6. Repeat CBC and coagulation studies at noon IMPRESSIONS: 1. Septic shock from probable intra-abdominal source Exact etiology is unclear at this time. Patient has received significant amount of fluid and has been initiated on pressor therapy. Use Levophed to keep maps greater than 65. Unable to use IV contrast with patient's current renal function, so will attempt p.o. contrast. High clinical suspicion that surgery or IR will be required for source control. Patient does have a reported penicillin allergy with angioedema. However, patient did receive meropenem and does not appear to have any facial swelling. Patient was placed on stress dose steroids, but these can likely be discontinued in 24-48 hours if infectious source can be controlled. Cultures have been obtained. 2. Possible DIC Patient was septic shock, thrombocytopenia and depressed fibrinogen. Patient has no active source of bleeding at this time. Will repeat CBC and coagulation studies in 6 hours. Likely give cryo if patient develops bleeding complications. Patient is on appropriate antibiotics at this time. 3. Acute kidney injury/failure with hyperkalemia and hypocalcemia Likely secondary to septic shock. Patient likely has an element of acidosis associated with lactic acid leading to hyperkalemia. Will administer calcium. Support blood pressure. No indication for renal replacement therapy at this time. 4. Reported COPD Patient with hyperinflation on chest x-ray. Patient does not appear to be in acute exacerbation at this time. Patient can continue on therapeutic substitution for home medications. Laboratory workup is not consistent with chronic CO2 retention. 5. Multiple sclerosis/hypertension/advanced age/active tobacco use Complicates care, management, recovery and prognosis. Antihypertensive medications will be held given acute condition. Nicotine patch can be provided if necessary. Addendum 10:55 AM: Shortly after 9 AM, I was called emergently by the radiology department for concern of ruptured AAA. Patient did have marginal renal function, but given the severity of findings, IV contrast was administered. Patient was evaluated in the CT scanner and wet read was notable for a 10 cm AAA with extravasation at the [address] Redding was notified and immediately arranged for transportation to [facility]. Sourcing Engineer and vascular surgeon was personally updated on the patient's condition. After arriving back in the intensive care unit, patient's was updated on current condition. Patient was noted to have respirations in the 40s and complaining of shortness of breath. Given patient's need for emergent transfer, patient was intubated using 20 mg of etomidate and 50 mcg of fentanyl. Patient was placed on a Versed drip. Patient started to become more tenuous from a blood pressure standpoint. Patient ended up requiring another 2 L of normal saline and 5 units of packed red blood cells were hung. Attempts at radial art line and right brachial art line were unsuccessful by myself and [facility] transport. Given delay, patient was transported without arterial line. Patient was on Levophed at 40 mcg and vasopressin. Versed was running at 2 mg. All blood products were administered using pressure bag. Patient was transported by [facility] [employer] [facility] ([facility]: [place]) at 10:52 AM with a dopplerable femoral pulse and spontaneous movement of the feet. Patient did have significant worsening of abdominal distention. Did verify with transport that CT imaging was in the envelope along with documentation. TIME: 180 minutes critical care time spent addressing patient's septic shock, possible DIC, acute kidney injury, review of all data and collaboration with care team (5:40 AM to 8 AM) Code Visit Procedures: 73739 Critial Care 1st Hr 9xxxx: Other Procedure See Report - 80817 x 4 (180 minutes of total critical care time)
[2017-12-07 07:50] LABS: Reflex Lactate? Y
[2017-12-07 08:48] LABS: Lactic Acid 2.4 mmol/L (0.4-2.0)
--- NOTE | 2017-12-07 08:48 | NURSING ---
INFORMED ANDERSON MARCANO- LACTIC=2.4
--- NOTE | 2017-12-07 09:02 | PCM.PN.HOSP ---
Subjective: Patient was seen and examined. and children at the bedside. Patient is hard of hearing. Will wake up easily when talked to. Complains of slightly feeling short of breath. says abdomen looks distended, but nontender according to the patient. Denied nausea or vomiting or constipation. Admitted last night with right lower quadrant pain, and noted to be hypotensive, transferred to the ICU for closer monitoring. Central line was placed by sewer line photo inspector without any complications. Patient received multiple fluid boluses, later on started on levo fed. Patient had CT scan of the abdomen, findings were concerning for a bleeding infrarenal aortic aneurysm. Helicopter transport service was dispatched to transport patient. Patient had ongoing IV fluids, received more than 3 units of trauma blood. Patient got intubated, started on mechanical ventilation. Clip And Hanger Attacher and air flight team had trouble placing the arterial access. He became hypotensive further, vasopressin was started, transported to the [facility]. Vitals/I&O's: Vital Signs Temp Pulse Resp BP Pulse Ox 98.9 F 108 H 34 H 86/67 L 100 12/07/17 08:00 12/07/17 08:00 12/07/17 08:00 12/07/17 08:00 12/07/17 08:49 Oxygen Flow Rate (L/min) 3 Oxygen Delivery Method Nasal Cannula Weight: 89.3 kg Intake and Output for Last 24 Hours 12/05/17 12/06/17 12/07/17 23:59 23:59 23:59 Intake Total 2662 / 2662 Balance 2662 / 2662 General: Alert, Oriented x3, Cooperative, No apparent distress, - - looks pale, on oxygen, HEENT: Atraumatic, PERRLA, EOMI, Normocephalic Oral: Dry Mucosa Neck: Supple, No JVD, Negative Carotid Bruits Lungs: Diminished Cardiovascular: Regular rate, Regular Rhythm, Normal S1, Normal S2, Tachycardic Abdomen: Bowel Sounds Present, Soft, Non Tender, No Hepato-splenomegaly, Distended Extremities: No edema Skin: No rashes, No breakdown Musculoskeletal: No Tenderness to Palpation of Joints or Extremities Lymphatic: No Cervical, Supraclavicular, or Inguinal Adenopathy Neurological: Cranial nerves II-XII grossly intact, Neuro grossly intact Psych/Mental Status: Normal Affect, Appropriate Laboratory Results 12/07/17 05:10: MRSA (PCR) Negative 12/07/17 05:44: PT 18.7 H, INR 1.6, APTT 35.0, Fibrinogen 113 L, D-Dimer Quant (PE/DVT) > 20.00 H* 12/07/17 07:50: Vit D 1,25-Dihydroxy Cancelled 12/07/17 08:10: Lactic Acid 2.4 H 12/07/17 08:45: Troponin I Pending Current Medications Acetaminophen (Tylenol) 650 mg PO Q8 [facility] Last Admin: 12/07/17 05:08 Dose: 650 mg Albuterol/Ipratropium (Duoneb) 3 ml INHALATION Q4H PRN PRN PRN Reason: SOB &/OR WHEEZING [facility] Atorvastatin Calcium (Lipitor) 40 mg PO DAILY@2200 [facility] Last Admin: 12/06/17 23:10 Dose: 40 mg Docusate Sodium (Colace) 100 mg PO BID [facility] Last Admin: 12/06/17 23:10 Dose: 100 mg Duloxetine HCl (Cymbalta) 30 mg PO DAILY [facility] Enoxaparin Sodium (Lovenox) 40 mg SC DAILY@1000 [facility] Finasteride (Proscar) 5 mg PO DAILY [facility] Hydrocortisone Sodium Succinate (Solu-Cortef) 50 mg IV Q6 [facility] Last Admin: 12/07/17 05:39 Dose: 50 mg Meropenem 1 gm/ Sodium (Chloride) 120 mls @ 240 mls/hr IV Q8 [facility] Last Admin: 12/07/17 05:08 Dose: 240 mls/hr Vancomycin HCl 1,500 mg/ (Sodium Chloride) 530 mls @ 250 mls/hr IV Q24H [facility] Norepinephrine Bitartrate 8 mg (/ Dextrose) 258 mls @ 9.67 mls/hr IV .[id number] [facility] PRN Reason: 5 MCG/MIN Last Admin: 12/07/17 05:35 Dose: 9.67 mls/hr Thiamine HCl 200 mg/ Sodium (Chloride) 52 mls @ 200 mls/hr IV BID [facility] Last Admin: 12/07/17 05:38 Dose: 200 mls/hr Calcium Gluconate 2 gm/ Sodium (Chloride) 120 mls @ 120 mls/hr IV .Q1H [facility] Stop: 12/07/17 09:29 Magnesium Hydroxide (Milk Of Magnesia) 30 ml PO DAILY PRN PRN PRN Reason: Constipation Nutritional Formula (Lactose Free) (Ensure Enlive) 120 ml PO 4X/DAY ANKIT Oxycodone HCl (Oxyir) 5 mg PO Q6H PRN PRN PRN Reason: SEVERE PAIN (6-10/10) Sodium Chloride () 5 - 30 ml IV UD PRN PRN Reason: SALINE FLUSH Last Admin: 12/07/17 05:39 Dose: 10 ml Sodium Chloride () 10 - 40 ml IV UD PRN PRN Reason: MULTILUMEN/HICMAN CATH FLUSH Medical Necessity - Tobacco Use Smoking Status: Current every day smoker Assessment/Plan All Active Problems Septic shock (Acute) Weakness (Acute) COPD (chronic obstructive pulmonary disease) (Acute) CAD (coronary artery disease) (Acute) History of left knee replacement (Resolved) 1. Shock, likely hypovolemic and septic, unclear etiology at the time of admission, patient got transferred to the ICU, started on pressors. CT of the abdomen and pelvis showed bleeding infrarenal aortic aneurysm, likely source of shock. Patient remained on IV meropenem, got multiple fluid boluses for resuscitation, started on levo fed and later on vasopressin. Received more than 5 units of non-crossmatched trauma blood. 2. Possible DIC likely from septic shock versus massive hypovolemic shock from bleeding aneurysm, she had thrombocytopenia, depressed fibrinogen 3. Acute kidney injury likely from shock, management as above. 4. Reported COPD, and acute exacerbation 5. History of multiple sclerosis, history of recurrent falls
--- NOTE | 2017-12-07 09:15 | NURSING ---
PT taken to CT. Abnormalities on CT identified by Radiologist, Dr. Puga notified and on his way down. Ok'd radiology staff to give IV contrast at this time. Upon arrival Dr. Puga identified a bleeding aortic aneurysm. Pt was transported back to ICU per this nurse and Nubia RN.
--- NOTE | 2017-12-07 09:25 | CASEMGMT ---
[facility]. [facility], [facility], [facility], [facility]: Natalia Parra
--- NOTE | 2017-12-07 09:31 | PCM.RX.CS ---
Consult Pharmacy has been consulted to manage selected antiobiotic: Vancomycin Type of Consult: New start Suspected Infection: Sepsis Prior Doses of Antibiotics Received/Current Regimen: 1 Labs: Sodium 144 mmol/L (136-145) 12/07/17 03:46 Potassium 5.3 mmol/L (3.5-5.1) H 12/07/17 03:46 Chloride 117 mmol/L (98-107) H 12/07/17 03:46 Carbon Dioxide 21.0 mmol/L (21.0-32.0) 12/07/17 03:46 Anion Gap 6 (5-15) 12/07/17 03:46 BUN 37 mg/dL (7-18) H 12/07/17 03:46 Creatinine 1.86 mg/dL (0.70-1.30) H 12/07/17 03:46 Est GFR (MDRD) Af Amer 46 mL/min (>60) L 12/07/17 03:46 Est GFR (MDRD) Non-Af 38 mL/min (>60) L 12/07/17 03:46 BUN/Creatinine Ratio 19.9 RATIO (10-20) 12/07/17 03:46 Glucose 124 mg/dL (74-106) H 12/07/17 03:46 Weight used for dosin.3 kg Estimated Creatinine Clearance: 42.92 Goal Trough: 15-20 mcg/mL Pharmacy Plan for Drug Dosing: VANCOMYCIN 750MG Q12H FOR GOAL TROUGH 15-20. TROUGH ORDERED PRIOR TO 4TH DOSE = 12/08/17 @ 1330 Pharmacy Service will continue to monitor and adjust dosing as required.
--- NOTE | 2017-12-07 09:39 | DCINST_ITS ---
- Discharge Diagnoses Current Active Problems: Current Active and Chronic Problems Septic shock (Acute) Weakness (Acute) BPH (benign prostatic hyperplasia) (Chronic) Hypertension (Chronic) Multiple sclerosis (Chronic) COPD (chronic obstructive pulmonary disease) (Acute) CAD (coronary artery disease) (Acute) Reason(s) for Visit for Discharge Instructions: Fall, hypotension Allergies/Adverse Reactions: Allergies Penicillins [PCN] Allergy (Verified 12/06/17 17:23) Angioedema all cillins Allergy (Uncoded 12/06/17 17:23) Angioedema Medications to take at Discharge Aspirin [Aspirin, Baby] 81 mg PO DAILY 12/06/17 Atorvastatin Calcium 40 mg PO QHS 12/06/17 Budesonide [Budesonide] 2 puff IH DAILY 12/06/17 Duloxetine HCl [Duloxetine HCl] 30 mg PO DAILY 12/06/17 Finasteride [Proscar] 5 mg PO DAILY 12/06/17 Ipratropium/Albuterol Sulfate [Duoneb] 2 puff IH DAILY 12/06/17 Metoprolol Tartrate [Lopressor (beta shena)] 25 mg PO BID 12/06/17 Multivitamin [Daily Multiple Vitamin] 1 each PO DAILY 12/06/17 Tamsulosin HCl [Flomax] 0.4 mg PO DAILY 12/06/17 Vitamin B-12 1 tab PO DAILY 12/06/17 Primary Care Physician: Terell Carvalho MD [Primary Care Provider] - Test Results: Test results from this visit will be discussed in further detail at your follow- up appointment, if applicable. Proposed Discharge Date: 12/07/17
--- NOTE | 2017-12-07 09:39 | PCM.DC.SUM ---
Discharge Date and Diagnosis Date of Admission: 12/06/17 Date of Discharge: 12/07/17 - Primary Discharge Diagnosis Active and Suspected Problems Hypovolemic shock Acute bleeding aortic aneurysm Septic shock (Acute) Weakness (Acute) COPD (chronic obstructive pulmonary disease) (Acute) CAD (coronary artery disease) (Acute) Possible DIC Acute kidney injury Recurrent falls Nicotine use disorder Lactic acidosis secondary to hypovolemia/shock - Secondary Discharge Diagnosis Chronic Problems BPH (benign prostatic hyperplasia) (Chronic) Hypertension (Chronic) Multiple sclerosis (Chronic) Hospital Course and Treatment Imaging Results: 12/07/17 07:20 CXR for Line Placement [RAD] Urgent 12/07/17 07:28 CT Abd/Pelvis W/WO Contrast [CT] Urgent Clinical Impression(s) from Imaging Studies Brain CT 12/06/17 17:23 IMPRESSION: Chronic involutional changes without evidence of acute intracranial or calvarial abnormality. There is no major interval change. Electronically Signed: Sanju Mejía DO at 18:13 EDT Tel [phone], Service support , Chest X-Ray 12/06/17 17:35 IMPRESSION: COPD and evidence of prior CABG procedure. There is no acute findings or interval change. Electronically Signed: Sanju Mejía DO at 17:59 EDT Tel [phone], Service support , Lumbar Spine X-Ray 12/06/17 18:00 IMPRESSION: Degenerative changes of the spine, as detailed above. Electronically Signed: Sanju Mejía DO at 18:18 EDT Tel [phone], Service support , Chest X-Ray 12/07/17 07:20 IMPRESSION: Right IJ central venous catheter tip in the mid SVC, no pneumothorax or mediastinal shift. No acute pulmonary process Electronically Signed: Javier Ryan MD at 8:10 EDT , Service support , Abdomen/Pelvis CT 12/07/17 07:28 IMPRESSION: There is a large peripherally calcified abdominal aortic aneurysm which I suspect is hemorrhaging. The aneurysm measures approximately 9.3 x 8.8 cm in transverse dimension and 15 cm in CC length. Hemorrhagic fluid seen around the periphery of the liver and spleen down both paracolic gutters and into the pelvis. Findings discussed with the caustic liquor maker prior to dictation and has arranged for patient to be transferred. No suspicious solid organ abnormality Nonspecific thickening of small and large bowel loops, likely due to the hemorrhage within the abdomen Extensive degenerative bony changes N.B. : The above information has been verbally conveyed by Javier Ryan MD to Bentley Puga, Covering Physician, on 12/07/2017 09:56:40 (ET). Electronically Signed: Javier Ryan MD at 9:56 EDT , Service support , Chest X-Ray 12/07/17 10:02 IMPRESSION: The endotracheal tube projects approximately 3.4 cm above the danica. The lungs are hyperinflated. Electronically Signed: Angel Holly DO at 10:28 EDT Tel , Service support , [employer] Operations: None Procedures: Central line placement Summary of Care Provided: The patient is a 71 year old M with past medical history of multiple sclerosis, history of recurrent falls, reportedly having ongoing weakness, was brought in after a fall. Patient was said to have gotten up and fell and hit his head. His states that he has been falling lately and this was attributed to his MS. Patient had come in complaining of pain in his low back. There was no reported loss of consciousness after the fall. Patient was noted to be slightly hypotensive in the ED, received multiple liters of saline. CT scan of the head done in the ED shows no acute hemorrhage. Patient had a lumbar x-ray that showed degenerative changes. Chest x-ray on admission showed COPD changes. EKG was unremarkable. His admitting blood work was abnormal for elevated white cell count of 10.3, creatinine of 1.46, normal liver enzymes, elevated lactate of 3.3. D-Dimer was elevated. Patient was admitted initially to the MedSurg floor, found to be hypotensive and transferred to the ICU. A central line was placed. Patient was noted to have abdominal distension. Blood work was concerning for possible DIC. He was started on IV meropenem. He was sent for Ct scan of abdomen. Results showed large peripherally calcified abdominal aortic aneurysm, suspected to be hemorrhaging. The aneurysm measures approximately 9.3 x 8.8 cm in transverse dimension and 15 cm in CC length. Hemorrhagic fluid seen around the periphery of the liver and spleen down both paracolic gutters and into the pelvis. Nonspecific thickening of small and large bowel loops, likely due to the hemorrhage within the abdomen. Patient got aggressive rehydration, received several liters of fluid. He was started on Levophed initially, later had vasopressin added. He got 5 units of non-crossmatch trauma. Patient started complaining of shortness of breath and was electively intubated. The [facility] transfer line agreed to accept patient to ICU under cardiovascular service. Helicopter transport service was dispatched to transport patient. [employer] and air flight team were unsuccessful placing arterial access. Home Medications: Medications to take at Discharge Aspirin [Aspirin, Baby] 81 mg PO DAILY 12/06/17 Atorvastatin Calcium 40 mg PO QHS 12/06/17 Budesonide [Budesonide] 2 puff IH DAILY 12/06/17 Duloxetine HCl [Duloxetine HCl] 30 mg PO DAILY 12/06/17 Finasteride [Proscar] 5 mg PO DAILY 12/06/17 Ipratropium/Albuterol Sulfate [Duoneb] 2 puff IH DAILY 12/06/17 Metoprolol Tartrate [Lopressor (beta shena)] 25 mg PO BID 12/06/17 Multivitamin [Daily Multiple Vitamin] 1 each PO DAILY 12/06/17 Tamsulosin HCl [Flomax] 0.4 mg PO DAILY 12/06/17 Vitamin B-12 1 tab PO DAILY 12/06/17 Primary Care Physician: Terell Carvalho MD [Primary Care Provider] - Disposition: Acute care Hospital Minutes spent on discharge:: 90 - Coordinating transfer to [facility] and aggressively resuscitating patient Patient Condition:: Guarded Medical Necessity - Tobacco Use Smoking Status: Current every day smoker Meaningful Use Info Meaningful Use Diagnoses (Choose all that apply): None applicable Code Visit Inpatient E&M: 13178 Disch Hosp
[2017-12-07] MEDS: fentaNYL 100 MCG/2 ML Ampul 50 MCG IV ×2 (09:52→10:37)
[2017-12-07] MEDS: Etomidate 20 MG/10 ML Vial IV (09:52)
--- NOTE | 2017-12-07 09:55 | NURSING ---
Dr. Puga at bedside for intubation. Etomidate 20mg IV and Fentanyl 50mcg IV given at this time. Size 8 ET tube placed at this time without difficulty, 24 @ LL. Vent settings AC-14, TV-500, PEEP-5, FIO2-100%. Trauma Blood ordered, 1st unit of PRBC's initiated via pressure bag at 0958. Ativan 2mg IV given for restlessness and tremors at 1007. At 1010 Dr. Puga attempted an arterial line in the left wrist but was unsuccessful. Life flight team from [facility] at bedside at 1015. Pt was placed on transport teams heart monitor and VS machine. 2nd Unit of Blood hung at this time via pressure bag also. 2nd attempt by Dr. Puga for an arterial line in the left arm also unsuccessful. 3rd unit of blood hung at 1025 via pressure bag. 2 unsuccessful arterial line attempts by Life flight staff to right arm. At 1036 4th unit of trauma blood was given via pressure bag. Life flight staff requesting 4 more units of trauma blood, Familia in lab notified and January JIANG sent to retrieve blood from lab. 5th unit of blood hung at 1041, remaining 3 units sent with lifeflight staff. At this time patient was transferred onto Life flight cot and secured. Pt transported off unit at 1052.
--- NOTE | 2017-12-07 10:02 | RAD_ITS ---
STUDY: X-RAY CHEST REASON FOR EXAM: Male, 71 years old. Endotracheal tube placement TECHNIQUE: Single AP portable view of the chest. The lung bases are excluded from the image. COMPARISON: 12/07/2017 FINDINGS: An endotracheal tube is seen with the tip in the mid thoracic trachea. Right internal jugular central venous catheter is seen with the tip in the SVC. The lungs are hyperinflated. There is no demonstrated pleural abnormality. Sternal wires are present. Normal mediastinum and melanie. Normal visualized pulmonary arteries. Normal visualized aortic arch and descending thoracic aorta. There are diffuse degenerative changes of the visualized thoracic spine. Normal visualized ribs, clavicles, and shoulders. There is no demonstrated abnormality of the visualized soft tissue structures of the upper abdomen. RAD/Chest 1 View (Portable) IMPRESSION: The endotracheal tube projects approximately 3.4 cm above the danica. The lungs are hyperinflated. Electronically Signed: Angel Holly DO at 10:28 EDT Tel , Service support ,
[2017-12-07] MEDS: LORazepam 2 MG/ML Syringe IV (10:07)
[2017-12-07 10:09] LABS: Vitamin B12 629 pg/mL (211-911); Vitamin D,25 Hydroxy 31.6 ng/mL (29.95-100.01)
== END 2017-12-07 10:52 | disposition short-term general hospital (02) | DRG 871 ==
LOC: ED 19:07 → ICU 12-07 04:56 → MS3 12-07 09:55
PROVIDERS: Admitting Provider Hospitalist; Emergency Provider Emergency Medicine; Family Provider Family Medicine; PCP Family Medicine; Visit Provider Internal Medicine
DX: A41.9 Sepsis, unspecified organism (principal); I71.3 Abdominal aortic aneurysm, ruptured; R57.1 Hypovolemic shock; R65.21 Severe sepsis with septic shock; D65 Disseminated intravascular coagulation [defibrination syndrome]; N17.9 Acute kidney failure, unspecified; J44.1 Chronic obstructive pulmonary disease with (acute) exacerbation; E87.2 Acidosis; R29.6 Repeated falls; G35 Multiple sclerosis; I73.89 Other specified peripheral vascular diseases; E86.0 Dehydration; I25.10 Atherosclerotic heart disease of native coronary artery without angina pectoris; I10 Essential (primary) hypertension; Z95.1 Presence of aortocoronary bypass graft; N40.1 Benign prostatic hyperplasia with lower urinary tract symptoms; R35.0 Frequency of micturition; F17.200 Nicotine dependence, unspecified, uncomplicated; E87.5 Hyperkalemia; E78.5 Hyperlipidemia, unspecified; S80.211A Abrasion, right knee, initial encounter; W19.XXXA Unspecified fall, initial encounter; F41.9 Anxiety disorder, unspecified; F32.9 Major depressive disorder, single episode, unspecified
CPT/HCPCS: 31500; 36415; 51702; 70450; 71045; 72100; 74178; 80048; 80053; 81001; 82306; 82607; 83605; 84484; 85025; 85379; 85384; 85610; 85730; 86900; 87040; 87086; 87641; 93005; 94002; 99251; 99285; J2185; J7030; J7050; P9016; Q9967; A4216; G0463; J3490

== ENCOUNTER → 2018-02-27 | Outpatient (REF) | payer MEDICARE, MEDICAID, SELFPAY ==
[2018-02-27 07:58] LABS: Hematocrit 36.4 % (40-54); Hemoglobin 11.5 g/dl (13.0-16.5); Mean Corp Hgb Conc 31.6 g/gl (32-36); Mean Corpuscular Hgb 29.6 pg (27.0-32.0); Mean Corpuscular Volume 93.6 fL (80-94); Mean Platelet Vol. 9.4 fl (6.2-12.0); Platelet Count 148 K/mm3 (150-450); RBC Distribution Width CV 14.5 % (11.6-14.6); RBC Distribution Width SD 48.2 fl (35.1-43.9); Red Blood Count 3.89 M/mm3 (4.6-6.2); White Blood Count 4.9 K/mm3 (4.4-11.0)
[2018-02-27 08:03] LABS: Scan Indicated on CBC? Y/N NO
[2018-02-27 08:04] LABS: Anion Gap 6 (5-15); BUN 25 mg/dL (7-18); BUN/Creat Ratio 30.2 RATIO (10-20); Calcium,Total 8.9 mg/dL (8.5-10.1); Chloride 106 mmol/L (98-107); Creatinine, Serum 0.83 mg/dL (0.70-1.30); EST Glomerular Filtration Rate 97 mL/min (>60); Est Glom Filt Rate - Afr Amer 118 mL/min (>60); Glucose 83 mg/dL (74-106); Potassium 4.3 mmol/L (3.5-5.1); Sodium Level 143 mmol/L (136-145)
== END | disposition home or self-care (01) ==
LOC: OLS.WHLTCC 05:00
PROVIDERS: Visit Provider Family Medicine
DX: J44.9 Chronic obstructive pulmonary disease, unspecified (principal); I10 Essential (primary) hypertension; K92.2 Gastrointestinal hemorrhage, unspecified; K56.609 Unspecified intestinal obstruction, unspecified as to partial versus complete obstruction
CPT/HCPCS: 36415; 80048; 85027

== ENCOUNTER → 2018-03-06 | Outpatient (REF) | payer OTHER, MEDICAID, SELFPAY ==
[2018-03-06 08:33] LABS: Hematocrit 35.3 % (40-54); Hemoglobin 11.2 g/dl (13.0-16.5); Mean Corp Hgb Conc 31.7 g/gl (32-36); Mean Corpuscular Hgb 29.9 pg (27.0-32.0); Mean Corpuscular Volume 94.4 fL (80-94); Mean Platelet Vol. 9.6 fl (6.2-12.0); Platelet Count 140 K/mm3 (150-450); RBC Distribution Width CV 14.9 % (11.6-14.6); RBC Distribution Width SD 48.6 fl (35.1-43.9); Red Blood Count 3.74 M/mm3 (4.6-6.2); Scan Indicated on CBC? Y/N NO; White Blood Count 7.2 K/mm3 (4.4-11.0)
[2018-03-06 08:50] LABS: Anion Gap 7 (5-15); BUN 24 mg/dL (7-18); BUN/Creat Ratio 28.1 RATIO (10-20); Calcium,Total 8.8 mg/dL (8.5-10.1); Chloride 105 mmol/L (98-107); Creatinine, Serum 0.86 mg/dL (0.70-1.30); EST Glomerular Filtration Rate 94 mL/min (>60); Est Glom Filt Rate - Afr Amer 113 mL/min (>60); Glucose 86 mg/dL (74-106); Potassium 4.5 mmol/L (3.5-5.1); Sodium Level 142 mmol/L (136-145)
== END | disposition home or self-care (01) ==
LOC: OLS.WHLTCC 05:00
PROVIDERS: Visit Provider Family Medicine
DX: J44.9 Chronic obstructive pulmonary disease, unspecified (principal); I10 Essential (primary) hypertension; Z79.899 Other long term (current) drug therapy
CPT/HCPCS: 36415; 80048; 85027

== ENCOUNTER → 2018-03-27 05:00 | Outpatient (REF) | payer MEDICARE, MEDICAID, SELFPAY ==
[2018-03-27 07:57] LABS: Hematocrit 35.7 % (40-54); Hemoglobin 11.4 g/dl (13.0-16.5); Mean Corp Hgb Conc 31.9 g/gl (32-36); Mean Corpuscular Hgb 29.8 pg (27.0-32.0); Mean Corpuscular Volume 93.5 fL (80-94); Mean Platelet Vol. 9.4 fl (6.2-12.0); Platelet Count 133 K/mm3 (150-450); RBC Distribution Width CV 14.9 % (11.6-14.6); RBC Distribution Width SD 48.8 fl (35.1-43.9); Red Blood Count 3.82 M/mm3 (4.6-6.2); White Blood Count 4.4 K/mm3 (4.4-11.0)
[2018-03-27 07:59] LABS: Anion Gap 6 (5-15); BUN 19 mg/dL (7-18); BUN/Creat Ratio 22.2 RATIO (10-20); Calcium,Total 8.8 mg/dL (8.5-10.1); Chloride 107 mmol/L (98-107); Creatinine, Serum 0.85 mg/dL (0.70-1.30); EST Glomerular Filtration Rate 94 mL/min (>60); Est Glom Filt Rate - Afr Amer 113 mL/min (>60); Glucose 84 mg/dL (74-106); Potassium 4.5 mmol/L (3.5-5.1); Scan Indicated on CBC? Y/N NO; Sodium Level 145 mmol/L (136-145)
== END ==
LOC: OLS.WHLEAS 05:00
PROVIDERS: Visit Provider Family Medicine
DX: J44.9 Chronic obstructive pulmonary disease, unspecified (principal); I10 Essential (primary) hypertension; G35 Multiple sclerosis; N40.0 Benign prostatic hyperplasia without lower urinary tract symptoms; I25.10 Atherosclerotic heart disease of native coronary artery without angina pectoris; Z87.19 Personal history of other diseases of the digestive system
CPT/HCPCS: 36415; 80048; 85027

== ENCOUNTER → 2018-04-03 05:00 | Outpatient (REF) | payer MEDICARE, MEDICAID, SELFPAY ==
[2018-04-03 08:29] LABS: Hematocrit 35.7 % (40-54); Hemoglobin 11.3 g/dl (13.0-16.5); Mean Corp Hgb Conc 31.7 g/gl (32-36); Mean Corpuscular Hgb 29.4 pg (27.0-32.0); Mean Corpuscular Volume 92.7 fL (80-94); Mean Platelet Vol. 9.1 fl (6.2-12.0); Platelet Count 157 K/mm3 (150-450); RBC Distribution Width CV 14.5 % (11.6-14.6); RBC Distribution Width SD 47.3 fl (35.1-43.9); Red Blood Count 3.85 M/mm3 (4.6-6.2); White Blood Count 6.6 K/mm3 (4.4-11.0)
[2018-04-03 08:35] LABS: Scan Indicated on CBC? Y/N NO
[2018-04-03 08:40] LABS: Anion Gap 7 (5-15); BUN 20 mg/dL (7-18); BUN/Creat Ratio 20.2 RATIO (10-20); Calcium,Total 8.7 mg/dL (8.5-10.1); Chloride 103 mmol/L (98-107); Creatinine, Serum 0.99 mg/dL (0.70-1.30); EST Glomerular Filtration Rate 79 mL/min (>60); Est Glom Filt Rate - Afr Amer 95 mL/min (>60); Glucose 84 mg/dL (74-106); Potassium 4.7 mmol/L (3.5-5.1); Sodium Level 142 mmol/L (136-145)
== END ==
LOC: OLS.WHLEAS 05:00
PROVIDERS: Visit Provider Family Medicine
DX: J44.9 Chronic obstructive pulmonary disease, unspecified (principal); I10 Essential (primary) hypertension; I25.10 Atherosclerotic heart disease of native coronary artery without angina pectoris; N40.0 Benign prostatic hyperplasia without lower urinary tract symptoms; G35 Multiple sclerosis
CPT/HCPCS: 36415; 80048; 85027

== ENCOUNTER → 2018-04-10 06:00 | Outpatient (REF) | payer MEDICARE, MEDICAID, SELFPAY ==
[2018-04-10 07:20] LABS: Hematocrit 32.9 % (40-54); Hemoglobin 10.5 g/dl (13.0-16.5); Mean Corp Hgb Conc 31.9 g/gl (32-36); Mean Corpuscular Hgb 28.8 pg (27.0-32.0); Mean Corpuscular Volume 90.1 fL (80-94); Mean Platelet Vol. 8.6 fl (6.2-12.0); Platelet Count 170 K/mm3 (150-450); RBC Distribution Width CV 14.2 % (11.6-14.6); RBC Distribution Width SD 47.3 fl (35.1-43.9); Red Blood Count 3.65 M/mm3 (4.6-6.2); Scan Indicated on CBC? Y/N NO; White Blood Count 6.9 K/mm3 (4.4-11.0)
[2018-04-10 07:25] LABS: Anion Gap 4 (5-15); BUN 20 mg/dL (7-18); BUN/Creat Ratio 28.9 RATIO (10-20); Calcium,Total 8.6 mg/dL (8.5-10.1); Chloride 103 mmol/L (98-107); Creatinine, Serum 0.69 mg/dL (0.70-1.30); EST Glomerular Filtration Rate 120 mL/min (>60); Est Glom Filt Rate - Afr Amer 145 mL/min (>60); Glucose 89 mg/dL (74-106); Potassium 4.2 mmol/L (3.5-5.1); Sodium Level 139 mmol/L (136-145)
== END ==
LOC: OLS.WHLEAS 06:00
PROVIDERS: Visit Provider Family Medicine
DX: I10 Essential (primary) hypertension (principal); M62.81 Muscle weakness (generalized); F33.9 Major depressive disorder, recurrent, unspecified
CPT/HCPCS: 36415; 80048; 85027

== ENCOUNTER → 2018-04-18 06:20 | Outpatient (REF) | payer MEDICARE, MEDICAID, SELFPAY ==
[2018-04-18 08:57] LABS: Hemoglobin 10.4 g/dl (13.0-16.5); Mean Corp Hgb Conc 31.5 g/gl (32-36); Mean Corpuscular Volume 91.9 fL (80-94); Mean Platelet Vol. 8.9 fl (6.2-12.0); Platelet Count 214 K/mm3 (150-450); RBC Distribution Width SD 45.5 fl (35.1-43.9); Red Blood Count 3.59 M/mm3 (4.6-6.2); White Blood Count 5.1 K/mm3 (4.4-11.0)
[2018-04-18 09:03] LABS: Scan Indicated on CBC? Y/N NO
[2018-04-18 09:05] LABS: Anion Gap 7 (5-15); BUN 20 mg/dL (7-18); BUN/Creat Ratio 24.8 RATIO (10-20); Calcium,Total 8.8 mg/dL (8.5-10.1); Chloride 105 mmol/L (98-107); Creatinine, Serum 0.81 mg/dL (0.70-1.30); EST Glomerular Filtration Rate 100 mL/min (>60); Est Glom Filt Rate - Afr Amer 121 mL/min (>60); Glucose 85 mg/dL (74-106); Potassium 4.2 mmol/L (3.5-5.1); Sodium Level 143 mmol/L (136-145)
== END ==
LOC: OLS.WHLEAS 06:20
PROVIDERS: Visit Provider Family Medicine
DX: I10 Essential (primary) hypertension (principal); M62.81 Muscle weakness (generalized); F33.9 Major depressive disorder, recurrent, unspecified
CPT/HCPCS: 36415; 80048; 85027

== ENCOUNTER → 2018-04-25 05:00 | Outpatient (REF) | payer MEDICARE, MEDICAID, SELFPAY ==
[2018-04-25 08:12] LABS: Hematocrit 34.8 % (40-54); Hemoglobin 11.1 g/dl (13.0-16.5); Mean Corp Hgb Conc 31.9 g/gl (32-36); Mean Corpuscular Hgb 28.7 pg (27.0-32.0); Mean Corpuscular Volume 89.9 fL (80-94); Mean Platelet Vol. 8.8 fl (6.2-12.0); Platelet Count 190 K/mm3 (150-450); RBC Distribution Width CV 14.5 % (11.6-14.6); RBC Distribution Width SD 47.3 fl (35.1-43.9); Red Blood Count 3.87 M/mm3 (4.6-6.2); White Blood Count 6.7 K/mm3 (4.4-11.0)
[2018-04-25 08:15] LABS: Scan Indicated on CBC? Y/N NO
[2018-04-25 08:23] LABS: BUN 16 mg/dL (7-18); Creatinine, Serum 0.82 mg/dL (0.70-1.30); Glucose 88 mg/dL (74-106)
[2018-04-25 08:24] LABS: Anion Gap 6 (5-15); BUN/Creat Ratio 19.6 RATIO (10-20); Calcium,Total 8.5 mg/dL (8.5-10.1); Chloride 106 mmol/L (98-107); EST Glomerular Filtration Rate 98 mL/min (>60); Est Glom Filt Rate - Afr Amer 119 mL/min (>60); Potassium 4.1 mmol/L (3.5-5.1); Sodium Level 142 mmol/L (136-145)
== END ==
LOC: OLS.WHLEAS 05:00
PROVIDERS: Visit Provider Family Medicine
DX: I10 Essential (primary) hypertension (principal); M62.81 Muscle weakness (generalized); F33.9 Major depressive disorder, recurrent, unspecified
CPT/HCPCS: 36415; 80048; 85027

== ENCOUNTER → 2018-05-02 05:45 | Outpatient (REF) | payer MEDICARE, MEDICAID, SELFPAY ==
[2018-05-02 08:12] LABS: Hematocrit 35.5 % (40-54); Hemoglobin 11.1 g/dl (13.0-16.5); Mean Corp Hgb Conc 31.3 g/gl (32-36); Mean Corpuscular Hgb 28.8 pg (27.0-32.0); Mean Corpuscular Volume 92.2 fL (80-94); Platelet Count 137 K/mm3 (150-450); RBC Distribution Width CV 14.8 % (11.6-14.6); RBC Distribution Width SD 48.2 fl (35.1-43.9); Red Blood Count 3.85 M/mm3 (4.6-6.2); White Blood Count 4.7 K/mm3 (4.4-11.0)
[2018-05-02 08:13] LABS: Scan Indicated on CBC? Y/N NO
[2018-05-02 08:32] LABS: Anion Gap 8 (5-15); BUN 19 mg/dL (7-18); BUN/Creat Ratio 21.1 RATIO (10-20); Calcium,Total 8.7 mg/dL (8.5-10.1); Chloride 102 mmol/L (98-107); Cholesterol 90 mg/dL (200); EST Glomerular Filtration Rate 88 mL/min (>60); Est Glom Filt Rate - Afr Amer 107 mL/min (>60); Glucose 80 mg/dL (74-106); High Density Lipoprotein 44 mg/dL; Potassium 4.5 mmol/L (3.5-5.1); Sodium Level 141 mmol/L (136-145); Triglycerides 76 mg/dL; Very Low Density Lipoprotein 15 mg/dL (5-40)
[2018-05-02 08:55] LABS: Vitamin B12 638 pg/mL (211-911)
== END ==
LOC: OLS.WHLEAS 05:45
PROVIDERS: Visit Provider Family Medicine
DX: I10 Essential (primary) hypertension (principal); M62.81 Muscle weakness (generalized); F33.9 Major depressive disorder, recurrent, unspecified
CPT/HCPCS: 36415; 80048; 80061; 82607; 85027

== ENCOUNTER → 2018-05-09 07:00 | Outpatient (REF) | payer MEDICARE, MEDICAID, SELFPAY ==
[2018-05-09 08:45] LABS: Hematocrit 33.2 % (40-54); Hemoglobin 10.5 g/dl (13.0-16.5); Mean Corp Hgb Conc 31.6 g/gl (32-36); Mean Corpuscular Hgb 28.9 pg (27.0-32.0); Mean Corpuscular Volume 91.5 fL (80-94); Mean Platelet Vol. 9.3 fl (6.2-12.0); Platelet Count 175 K/mm3 (150-450); RBC Distribution Width CV 14.5 % (11.6-14.6); RBC Distribution Width SD 47.5 fl (35.1-43.9); Red Blood Count 3.63 M/mm3 (4.6-6.2); White Blood Count 6.1 K/mm3 (4.4-11.0)
[2018-05-09 08:50] LABS: Anion Gap 8 (5-15); BUN 19 mg/dL (7-18); BUN/Creat Ratio 21.4 RATIO (10-20); Calcium,Total 8.7 mg/dL (8.5-10.1); Chloride 104 mmol/L (98-107); Creatinine, Serum 0.89 mg/dL (0.70-1.30); EST Glomerular Filtration Rate 90 mL/min (>60); Est Glom Filt Rate - Afr Amer 108 mL/min (>60); Glucose 86 mg/dL (74-106); Potassium 4.3 mmol/L (3.5-5.1); Sodium Level 142 mmol/L (136-145)
[2018-05-09 08:52] LABS: Scan Indicated on CBC? Y/N NO
== END ==
LOC: OLS.WHLEAS 07:00
PROVIDERS: Visit Provider Family Medicine
DX: I10 Essential (primary) hypertension (principal); M62.81 Muscle weakness (generalized); F33.9 Major depressive disorder, recurrent, unspecified
CPT/HCPCS: 36415; 80048; 85027

== ENCOUNTER → 2018-05-20 04:00 | Outpatient (REF) | payer MEDICARE, MEDICAID, SELFPAY ==
[2018-05-20 07:16] LABS: Hematocrit 35.1 % (40-54); Mean Corp Hgb Conc 31.3 g/gl (32-36); Mean Corpuscular Hgb 28.5 pg (27.0-32.0); Mean Corpuscular Volume 90.9 fL (80-94); Platelet Count 169 K/mm3 (150-450); RBC Distribution Width CV 14.6 % (11.6-14.6); RBC Distribution Width SD 48.1 fl (35.1-43.9); Red Blood Count 3.86 M/mm3 (4.6-6.2); White Blood Count 5.5 K/mm3 (4.4-11.0)
[2018-05-20 07:17] LABS: Anion Gap 8 (5-15); BUN 19 mg/dL (7-18); BUN/Creat Ratio 20.5 RATIO (10-20); Calcium,Total 8.8 mg/dL (8.5-10.1); Chloride 104 mmol/L (98-107); Creatinine, Serum 0.93 mg/dL (0.70-1.30); EST Glomerular Filtration Rate 85 mL/min (>60); Est Glom Filt Rate - Afr Amer 103 mL/min (>60); Glucose 87 mg/dL (74-106); Potassium 4.4 mmol/L (3.5-5.1); Sodium Level 142 mmol/L (136-145)
[2018-05-20 07:29] LABS: Scan Indicated on CBC? Y/N NO
== END ==
LOC: OLS.WHLEAS 04:00
PROVIDERS: Visit Provider Family Medicine
DX: I10 Essential (primary) hypertension (principal); M62.81 Muscle weakness (generalized); F33.9 Major depressive disorder, recurrent, unspecified
CPT/HCPCS: 36415; 80048; 85027

== ENCOUNTER → 2018-05-27 05:00 | Outpatient (REF) | payer MEDICARE, MEDICAID, SELFPAY ==
[2018-05-27 08:39] LABS: Hematocrit 34.6 % (40-54); Hemoglobin 10.7 g/dl (13.0-16.5); Mean Corp Hgb Conc 30.9 g/gl (32-36); Mean Corpuscular Hgb 28.6 pg (27.0-32.0); Mean Corpuscular Volume 92.5 fL (80-94); Mean Platelet Vol. 9.3 fl (6.2-12.0); Platelet Count 175 K/mm3 (150-450); RBC Distribution Width CV 14.5 % (11.6-14.6); RBC Distribution Width SD 47.2 fl (35.1-43.9); Red Blood Count 3.74 M/mm3 (4.6-6.2); White Blood Count 4.8 K/mm3 (4.4-11.0)
[2018-05-27 08:47] LABS: Anion Gap 9 (5-15); BUN 17 mg/dL (7-18); BUN/Creat Ratio 18.7 RATIO (10-20); Calcium,Total 8.7 mg/dL (8.5-10.1); Chloride 103 mmol/L (98-107); Creatinine, Serum 0.91 mg/dL (0.70-1.30); EST Glomerular Filtration Rate 87 mL/min (>60); Est Glom Filt Rate - Afr Amer 105 mL/min (>60); Glucose 81 mg/dL (74-106); Potassium 4.4 mmol/L (3.5-5.1); Sodium Level 141 mmol/L (136-145)
[2018-05-27 09:05] LABS: Scan Indicated on CBC? Y/N NO
== END ==
LOC: OLS.WHLEAS 05:00
PROVIDERS: Visit Provider Family Medicine
DX: I10 Essential (primary) hypertension (principal); M62.81 Muscle weakness (generalized); F33.9 Major depressive disorder, recurrent, unspecified
CPT/HCPCS: 36415; 80048; 85027

== ENCOUNTER → 2018-06-03 04:30 | Outpatient (REF) | payer MEDICARE, MEDICAID, SELFPAY ==
[2018-06-03 07:08] LABS: Hematocrit 34.2 % (40-54); Hemoglobin 10.7 g/dl (13.0-16.5); Mean Corp Hgb Conc 31.3 g/gl (32-36); Mean Corpuscular Hgb 28.5 pg (27.0-32.0); Mean Corpuscular Volume 91.2 fL (80-94); Mean Platelet Vol. 9.4 fl (6.2-12.0); Platelet Count 144 K/mm3 (150-450); RBC Distribution Width CV 14.1 % (11.6-14.6); Red Blood Count 3.75 M/mm3 (4.6-6.2); White Blood Count 6.4 K/mm3 (4.4-11.0)
[2018-06-03 07:17] LABS: Anion Gap 7 (5-15); BUN 18 mg/dL (7-18); BUN/Creat Ratio 24.8 RATIO (10-20); Calcium,Total 8.6 mg/dL (8.5-10.1); Chloride 103 mmol/L (98-107); Creatinine, Serum 0.73 mg/dL (0.70-1.30); EST Glomerular Filtration Rate 113 mL/min (>60); Est Glom Filt Rate - Afr Amer 136 mL/min (>60); Glucose 90 mg/dL (74-106); Potassium 4.2 mmol/L (3.5-5.1); Sodium Level 140 mmol/L (136-145)
[2018-06-03 07:25] LABS: Scan Indicated on CBC? Y/N NO
== END ==
LOC: OLS.WHLEAS 04:30
PROVIDERS: Visit Provider Family Medicine
DX: I10 Essential (primary) hypertension (principal); M62.81 Muscle weakness (generalized); F33.9 Major depressive disorder, recurrent, unspecified
CPT/HCPCS: 36415; 80048; 85027

== ENCOUNTER → 2018-06-10 04:00 | Outpatient (REF) | payer MEDICARE, MEDICAID, SELFPAY ==
[2018-06-10 09:08] LABS: Hematocrit 34.5 % (40-54); Hemoglobin 10.7 g/dl (13.0-16.5); Mean Corpuscular Hgb 28.6 pg (27.0-32.0); Mean Corpuscular Volume 92.2 fL (80-94); Mean Platelet Vol. 9.1 fl (6.2-12.0); Platelet Count 200 K/mm3 (150-450); RBC Distribution Width CV 14.1 % (11.6-14.6); RBC Distribution Width SD 45.8 fl (35.1-43.9); Red Blood Count 3.74 M/mm3 (4.6-6.2); White Blood Count 5.1 K/mm3 (4.4-11.0)
[2018-06-10 09:09] LABS: Scan Indicated on CBC? Y/N NO
[2018-06-10 09:24] LABS: Anion Gap 8 (5-15); BUN 12 mg/dL (7-18); BUN/Creat Ratio 14.1 RATIO (10-20); Calcium,Total 8.8 mg/dL (8.5-10.1); Chloride 104 mmol/L (98-107); Creatinine, Serum 0.85 mg/dL (0.70-1.30); EST Glomerular Filtration Rate 94 mL/min (>60); Est Glom Filt Rate - Afr Amer 114 mL/min (>60); Glucose 82 mg/dL (74-106); Potassium 4.2 mmol/L (3.5-5.1); Sodium Level 144 mmol/L (136-145)
== END ==
LOC: OLS.WHLEAS 04:00
PROVIDERS: Visit Provider Family Medicine
DX: I10 Essential (primary) hypertension (principal); M62.81 Muscle weakness (generalized); F33.9 Major depressive disorder, recurrent, unspecified
CPT/HCPCS: 36415; 80048; 85027

== ENCOUNTER → 2018-06-20 05:43 | Outpatient (REF) | payer MEDICARE, SELFPAY ==
[2018-06-20 07:26] LABS: Anion Gap 9 (5-15); BUN 18 mg/dL (7-18); Calcium,Total 8.7 mg/dL (8.5-10.1); Chloride 105 mmol/L (98-107); Creatinine, Serum 0.82 mg/dL (0.70-1.30); EST Glomerular Filtration Rate 98 mL/min (>60); Est Glom Filt Rate - Afr Amer 119 mL/min (>60); Glucose 84 mg/dL (74-106); Potassium 4.3 mmol/L (3.5-5.1); Sodium Level 143 mmol/L (136-145)
[2018-06-20 07:40] LABS: Hematocrit 34.7 % (40-54); Hemoglobin 10.4 g/dl (13.0-16.5); Mean Corpuscular Hgb 27.7 pg (27.0-32.0); Mean Corpuscular Volume 92.5 fL (80-94); Mean Platelet Vol. 9.3 fl (6.2-12.0); Platelet Count 158 K/mm3 (150-450); RBC Distribution Width CV 14.9 % (11.6-14.6); RBC Distribution Width SD 48.4 fl (35.1-43.9); Red Blood Count 3.75 M/mm3 (4.6-6.2); White Blood Count 4.9 K/mm3 (4.4-11.0)
[2018-06-20 07:42] LABS: Scan Indicated on CBC? Y/N NO
== END ==
LOC: OLS.WHLEAS 05:43
PROVIDERS: Visit Provider Family Medicine
DX: I10 Essential (primary) hypertension (principal); F33.9 Major depressive disorder, recurrent, unspecified; M62.81 Muscle weakness (generalized)
CPT/HCPCS: 36415; 80048; 85027

== ENCOUNTER → 2018-06-27 06:15 | Outpatient (REF) | payer MEDICARE, SELFPAY ==
[2018-06-27 08:37] LABS: Hematocrit 33.4 % (40-54); Hemoglobin 10.3 g/dl (13.0-16.5); Mean Corp Hgb Conc 30.8 g/gl (32-36); Mean Corpuscular Hgb 28.9 pg (27.0-32.0); Mean Corpuscular Volume 93.8 fL (80-94); Mean Platelet Vol. 9.6 fl (6.2-12.0); Platelet Count 157 K/mm3 (150-450); RBC Distribution Width CV 14.9 % (11.6-14.6); RBC Distribution Width SD 49.1 fl (35.1-43.9); Red Blood Count 3.56 M/mm3 (4.6-6.2); White Blood Count 5.5 K/mm3 (4.4-11.0)
[2018-06-27 08:38] LABS: Scan Indicated on CBC? Y/N NO
[2018-06-27 08:49] LABS: Anion Gap 6 (5-15); BUN 21 mg/dL (7-18); BUN/Creat Ratio 22.1 RATIO (10-20); Calcium,Total 8.6 mg/dL (8.5-10.1); Chloride 106 mmol/L (98-107); Creatinine, Serum 0.95 mg/dL (0.70-1.30); EST Glomerular Filtration Rate 83 mL/min (>60); Est Glom Filt Rate - Afr Amer 100 mL/min (>60); Glucose 86 mg/dL (74-106); Potassium 4.3 mmol/L (3.5-5.1); Sodium Level 143 mmol/L (136-145)
== END ==
LOC: OLS.WHLEAS 06:15
PROVIDERS: Visit Provider Family Medicine
DX: I10 Essential (primary) hypertension (principal); M62.81 Muscle weakness (generalized); F33.9 Major depressive disorder, recurrent, unspecified
CPT/HCPCS: 36415; 80048; 85027

== ENCOUNTER → 2018-07-04 06:20 | Outpatient (REF) | payer MEDICARE, MEDICAID, SELFPAY ==
[2018-07-04 08:25] LABS: Hematocrit 35.8 % (40-54); Hemoglobin 10.9 g/dl (13.0-16.5); Mean Corp Hgb Conc 30.4 g/gl (32-36); Mean Corpuscular Hgb 28.2 pg (27.0-32.0); Mean Corpuscular Volume 92.5 fL (80-94); Mean Platelet Vol. 9.4 fl (6.2-12.0); Platelet Count 147 K/mm3 (150-450); RBC Distribution Width CV 15.5 % (11.6-14.6); RBC Distribution Width SD 52.5 fl (35.1-43.9); Red Blood Count 3.87 M/mm3 (4.6-6.2); White Blood Count 4.7 K/mm3 (4.4-11.0)
[2018-07-04 08:28] LABS: Scan Indicated on CBC? Y/N NO
[2018-07-04 08:35] LABS: Anion Gap 8 (5-15); BUN 17 mg/dL (7-18); BUN/Creat Ratio 20.1 RATIO (10-20); Calcium,Total 8.8 mg/dL (8.5-10.1); Chloride 106 mmol/L (98-107); Creatinine, Serum 0.85 mg/dL (0.70-1.30); EST Glomerular Filtration Rate 94 mL/min (>60); Est Glom Filt Rate - Afr Amer 114 mL/min (>60); Glucose 83 mg/dL (74-106); Potassium 4.4 mmol/L (3.5-5.1); Sodium Level 144 mmol/L (136-145)
== END ==
LOC: OLS.WHLEAS 06:20
PROVIDERS: Visit Provider Family Medicine
DX: I10 Essential (primary) hypertension (principal); M62.81 Muscle weakness (generalized); F33.9 Major depressive disorder, recurrent, unspecified
CPT/HCPCS: 36415; 80048; 85027

== ENCOUNTER → 2018-07-11 06:10 | Outpatient (REF) | payer MEDICARE, MEDICAID, SELFPAY ==
[2018-07-11 08:20] LABS: Hematocrit 36.3 % (40-54); Hemoglobin 11.1 g/dl (13.0-16.5); Mean Corp Hgb Conc 30.6 g/gl (32-36); Mean Corpuscular Hgb 28.8 pg (27.0-32.0); Mean Platelet Vol. 9.4 fl (6.2-12.0); Platelet Count 144 K/mm3 (150-450); RBC Distribution Width CV 15.2 % (11.6-14.6); RBC Distribution Width SD 50.8 fl (35.1-43.9); Red Blood Count 3.86 M/mm3 (4.6-6.2); White Blood Count 6.5 K/mm3 (4.4-11.0)
[2018-07-11 08:23] LABS: Scan Indicated on CBC? Y/N NO
[2018-07-11 08:25] LABS: Anion Gap 5 (5-15); BUN 16 mg/dL (7-18); BUN/Creat Ratio 17.6 RATIO (10-20); Calcium,Total 8.9 mg/dL (8.5-10.1); Chloride 105 mmol/L (98-107); Creatinine, Serum 0.91 mg/dL (0.70-1.30); EST Glomerular Filtration Rate 87 mL/min (>60); Est Glom Filt Rate - Afr Amer 105 mL/min (>60); Glucose 84 mg/dL (74-106); Potassium 4.6 mmol/L (3.5-5.1); Sodium Level 143 mmol/L (136-145)
== END ==
LOC: OLS.WHLEAS 06:10
PROVIDERS: Visit Provider Family Medicine
DX: I10 Essential (primary) hypertension (principal); M62.81 Muscle weakness (generalized); F33.9 Major depressive disorder, recurrent, unspecified
CPT/HCPCS: 36415; 80048; 85027

== ENCOUNTER → 2018-07-15 04:00 | Outpatient (REF) | payer MEDICARE, SELFPAY ==
[2018-07-15 08:32] LABS: Hematocrit 35.5 % (40-54); Hemoglobin 10.8 g/dl (13.0-16.5); Mean Corp Hgb Conc 30.4 g/gl (32-36); Mean Corpuscular Hgb 28.2 pg (27.0-32.0); Mean Corpuscular Volume 92.7 fL (80-94); Mean Platelet Vol. 9.6 fl (6.2-12.0); Platelet Count 122 K/mm3 (150-450); RBC Distribution Width CV 15.5 % (11.6-14.6); RBC Distribution Width SD 52.8 fl (35.1-43.9); Red Blood Count 3.83 M/mm3 (4.6-6.2); White Blood Count 4.9 K/mm3 (4.4-11.0)
[2018-07-15 08:48] LABS: Scan Indicated on CBC? Y/N NO
[2018-07-15 08:57] LABS: Anion Gap 9 (5-15); BUN 23 mg/dL (7-18); BUN/Creat Ratio 25.5 RATIO (10-20); Calcium,Total 8.4 mg/dL (8.5-10.1); Chloride 105 mmol/L (98-107); EST Glomerular Filtration Rate 88 mL/min (>60); Est Glom Filt Rate - Afr Amer 106 mL/min (>60); Glucose 77 mg/dL (74-106); Potassium 4.1 mmol/L (3.5-5.1); Sodium Level 141 mmol/L (136-145)
== END ==
LOC: OLS.WHLEAS 04:00
PROVIDERS: Visit Provider Family Medicine
DX: J44.9 Chronic obstructive pulmonary disease, unspecified (principal); I10 Essential (primary) hypertension; G35 Multiple sclerosis; I25.10 Atherosclerotic heart disease of native coronary artery without angina pectoris; J96.90 Respiratory failure, unspecified, unspecified whether with hypoxia or hypercapnia
CPT/HCPCS: 36415; 80048; 85027

== ENCOUNTER → 2018-07-22 18:00 | Outpatient (REF) | payer MEDICARE, SELFPAY ==
[2018-07-23 09:05] LABS: Mucous, Urine 0 SEEN /hpf (<or=2+)
[2018-07-23 09:31] LABS: Color, Urine Yellow (Yellow); Glucose, Dipstick Normal (Normal); Ketone-Dipstick 5 mg/dl (Negative); Leukocyte Esterase-Dipstick 100 /ul (Negative); Nitrite-Dipstick Negative (Negative); Occult Blood-Urine 250 /ul (Negative); Protein-Dipstick 100 mg/dl (Negative); Urine Bilirubin Dipstick Negative (Negative); Urine Clarity Cloudy (Clear); Urine Urobilinogen Normal (Normal)
[2018-07-23 09:44] LABS: Amorphous Sediment 2+; Bacteria 2+ /hpf (None Seen); Red Blood Cells-Urine 25-50 SEEN /hpf (0-5); Squamous Epithelial Cells - UA 0-5 SEEN /hpf (0-5); Triple Phosphate Crystals Ur 1+ /hpf (<or=1+); White Blood Cells 10-25 SEEN /hpf (0-5)
[2018-07-24 21:44] VITALS: BMI 18.3
== END ==
LOC: OLS.WHLEAS 18:00
PROVIDERS: Visit Provider Family Medicine
DX: N39.0 Urinary tract infection, site not specified (principal)
CPT/HCPCS: 81001; 87077; 87086; 87088; 87186

== ENCOUNTER → 2018-07-22 | Outpatient (REF) | payer MEDICARE, SELFPAY ==
[2018-07-22 08:22] LABS: Hematocrit 34.6 % (40-54); Hemoglobin 10.6 g/dl (13.0-16.5); Mean Corp Hgb Conc 30.6 g/gl (32-36); Mean Corpuscular Hgb 28.5 pg (27.0-32.0); Mean Platelet Vol. 9.5 fl (6.2-12.0); Platelet Count 142 K/mm3 (150-450); RBC Distribution Width CV 14.7 % (11.6-14.6); RBC Distribution Width SD 48.2 fl (35.1-43.9); Red Blood Count 3.72 M/mm3 (4.6-6.2); White Blood Count 9.8 K/mm3 (4.4-11.0)
[2018-07-22 08:23] LABS: Scan Indicated on CBC? Y/N NO
[2018-07-22 08:33] LABS: Anion Gap 8 (5-15); BUN 19 mg/dL (7-18); BUN/Creat Ratio 27.6 RATIO (10-20); Calcium,Total 8.4 mg/dL (8.5-10.1); Chloride 103 mmol/L (98-107); Creatinine, Serum 0.69 mg/dL (0.70-1.30); EST Glomerular Filtration Rate 120 mL/min (>60); Est Glom Filt Rate - Afr Amer 145 mL/min (>60); Glucose 88 mg/dL (74-106); Potassium 3.7 mmol/L (3.5-5.1); Sodium Level 142 mmol/L (136-145)
[2018-07-24 21:44] VITALS: BMI 18.3
== END | disposition home or self-care (01) ==
LOC: OLS.WHLEAS 04:00
PROVIDERS: Visit Provider Family Medicine
DX: J44.9 Chronic obstructive pulmonary disease, unspecified (principal); I10 Essential (primary) hypertension; G35 Multiple sclerosis; I25.10 Atherosclerotic heart disease of native coronary artery without angina pectoris
CPT/HCPCS: 36415; 80048; 85027

== ENCOUNTER 2018-07-24 15:38 | Inpatient (IN) | payer MEDICARE, SELFPAY ==
[2018-07-24] VITALS (10 sets, daily range): BP systolic 113–147; BP diastolic 68–94; PULSE 72–90; RESP 16–28; TEMP 36.7–37.6; O2SAT 94–98; BMI 18.3; BMI 18.4
--- NOTE | 2018-07-24 15:46 | EKG12_ITS ---
Test Reason : Blood Pressure : / mmHG Vent. Rate : 077 BPM Atrial Rate : 077 BPM P-R Int : 160 ms QRS Dur : 088 ms QT Int : 408 ms P-R-T Axes : 090 086 067 degrees QTc Int : 461 ms Normal sinus rhythm Anterior infarct , age undetermined Abnormal ECG Confirmed by SHANDA CASTILLO, ERICA ([id number]), slot editor VALERIO ANGELO ([id number]) on 07/26/2018 8:04:04 AM Referred By: Davina Cervantes Confirmed By:ERICA LAND MD
--- NOTE | 2018-07-24 15:55 | RAD_ITS ---
STUDY: X-RAY CHEST REASON FOR EXAM: Male, 72 years old. Shortness of breath, history of COPD TECHNIQUE: Single AP portable view of the chest. COMPARISON: Previous study of 12/07/2017 FINDINGS: nuclear monitoring technician leads are present. There are prominent bronchopulmonary markings of the right lung base. There is no demonstrated pleural abnormality. The heart size is within normal limits. Status post sternotomy changes are present. There is an atrial appendage clip. Normal mediastinum and melanie. Normal visualized pulmonary arteries. There are calcified plaques of the aortic arch. There are diffuse degenerative changes of the visualized thoracic spine. Normal visualized ribs, clavicles, and shoulders. There is no demonstrated abnormality of the visualized soft tissue structures of the upper abdomen. RAD/Chest 1 View (Portable) IMPRESSION: Prominent bronchopulmonary marking pattern of the right lung base, representing a new interval finding. Status post sternotomy. An atrial appendage clip is seen. Calcified plaques of the aortic arch. Electronically Signed: Florian Paredes MD at 16:26 EDT , Service support ,
[2018-07-24 16:02] LABS: Absolute Lymphocyte Count 0.78 X10^3/ul (0.83-4.51); Absolute Neutrophil Count 7.2 X10^3/uL (2.0-7.7); Basophil# 0.01 X10^3/uL; Basophil% 0.1 % (0-1); Eosinophil# 0.08 X10^3/uL; Eosinophils% 0.9 % (0-5); Hemoglobin 11.3 g/dl (13.0-16.5); Lymphocyte # 0.78 X10^3/ul (4.0); Lymphocyte % 8.7 % (19-41); Mean Corp Hgb Conc 32.3 g/gl (32-36); Mean Corpuscular Hgb 28.7 pg (27.0-32.0); Mean Corpuscular Volume 88.8 fL (80-94); Monocyte# 0.91 X10^3/uL; Monocyte% 10.2 % (0-10); Neutrophil # 7.15 X10^3/uL (2.7-7.7); POSITIVE COUNT NO; POSITIVE DIFFERENTIAL NO; POSITIVE MORPHOLOGY NO; Platelet Count 201 K/mm3 (150-450); RBC Distribution Width CV 14.6 % (11.6-14.6); RBC Distribution Width SD 47.9 fl (35.1-43.9); Red Blood Count 3.94 M/mm3 (4.6-6.2); White Blood Count 8.9 K/mm3 (4.4-11.0)
[2018-07-24 16:17] LABS: International Normalized Ratio 1.1; Prothrombin Time (Protime)PT. 13.6 SECONDS (11.7-14.9)
[2018-07-24 16:18] LABS: Partial Thromboplast Time 34.3 Seconds (24.1-36.2)
[2018-07-24 16:19] LABS: ALB/GLOB Ratio 0.9 RATIO (0.9-2.4); AST(SGOT) 17 U/L (15-37); Alanine Aminotransfer ALT/SGPT 16 U/L (16-61); Albumin, Serum 3.3 g/dL (3.2-5.0); Alkaline Phosphatase 84 U/L (45-117); Anion Gap 9 (5-15); BUN 23 mg/dL (7-18); BUN/Creat Ratio 22.8 RATIO (10-20); Calcium,Total 8.4 mg/dL (8.5-10.1); Chloride 104 mmol/L (98-107); Creatinine, Serum 1.01 mg/dL (0.70-1.30); EST Glomerular Filtration Rate 77 mL/min (>60); Est Glom Filt Rate - Afr Amer 93 mL/min (>60); Estimated Creatinine Clearance 77.24 ml/min; Globulin 3.7 g/dL (2.2-4.2); Glucose 98 mg/dL (74-106); Potassium 3.9 mmol/L (3.5-5.1); Sodium Level 139 mmol/L (136-145)
[2018-07-24 16:33] LABS: Lactic Acid 1.2 mmol/L (0.4-2.0)
[2018-07-24 17:17] LABS: Mucous, Urine 0 SEEN /hpf (<or=2+)
[2018-07-24] MEDS: 0.9% Normal Saline 1,000 ML 150 ML IV (19:04)
[2018-07-24 19:12] LABS: Glucose, Dipstick Normal (Normal); Ketone-Dipstick 15 mg/dl (Negative); Leukocyte Esterase-Dipstick 25 /ul (Negative); Nitrite-Dipstick Negative (Negative); Occult Blood-Urine 250 /ul (Negative); Protein-Dipstick 100 mg/dl (Negative); Specific Gravity, Urine 1.015 (1.002-1.030); Urine Bilirubin Dipstick Negative (Negative); Urine Urobilinogen Normal (Normal)
[2018-07-24 19:16] LABS: Color, Urine AMBER (Yellow); Urine Clarity Turbid (Clear)
--- NOTE | 2018-07-24 19:18 | ED.RN ---
ELEN FROM [facility] CALLED ([phone]) FOR UPDATE, ELEN WAS INFORMED THAT URINE WAS NOT RESULTED YET AND TROPONIN WAS NEGATIVE. ELEN REPORTED PT IS ON DAY 3 OF ANTIBIOTIC THERAPY OF BACTRIM DS FOR UTI.
[2018-07-24 19:20] LABS: Red Blood Cells-Urine > 100 SEEN /hpf (0-5); Squamous Epithelial Cells - UA 5-10 SEEN /hpf (0-5); White Blood Cells 5-10 SEEN /hpf (0-5)
[2018-07-24 19:21] LABS: Amorphous Sediment 2+ PHOS; Bacteria 1+ /hpf (None Seen)
[2018-07-24] MEDS: Ceftriaxone 1 GM/50 ML BAG IV (20:21)
--- NOTE | 2018-07-24 20:25 | PCM.HP.STD ---
Problem List (1) Encephalopathy acute Status: Acute (2) UTI (urinary tract infection) Status: Acute Qualifiers: Urinary tract infection type: catheter-associated UTI Indwelling urinary catheter type: indwelling urethral catheter Encounter type: initial encounter Qualified Code(s): T83.511A - Infection and inflammatory reaction due to indwelling urethral catheter, initial encounter; N39.0 - Urinary tract infection, site not specified (3) Chest pain Status: Acute Qualifiers: Chest pain type: unspecified Qualified Code(s): R07.9 - Chest pain, unspecified (4) HLD (hyperlipidemia) Status: Chronic Qualifiers: Hyperlipidemia type: pure hypercholesterolemia Qualified Code(s): E78.00 - Pure hypercholesterolemia, unspecified; E78.0 - Pure hypercholesterolemia (5) Chronic indwelling Gillespie catheter Status: Chronic (6) Ruptured aortic aneurysm Status: Chronic Qualifiers: Aortic location: unspecified Qualified Code(s): I71.8 - Aortic aneurysm of unspecified site, ruptured (7) BPH (benign prostatic hyperplasia) Status: Chronic Qualifiers: Lower urinary tract symptom presence: symptoms present Lower urinary tract symptom detail: urinary frequency Qualified Code(s): N40.1 - Benign prostatic hyperplasia with lower urinary tract symptoms; R35.0 - Frequency of micturition (8) Hypertension Status: Chronic Qualifiers: Hypertension type: essential hypertension Qualified Code(s): I10 - Essential (primary) hypertension (9) Multiple sclerosis Status: Chronic (10) COPD (chronic obstructive pulmonary disease) Status: Chronic Qualifiers: COPD type: unspecified COPD Qualified Code(s): J44.9 - Chronic obstructive pulmonary disease, unspecified (11) CAD (coronary artery disease) Status: Chronic Qualifiers: Coronary Disease-Associated Artery/Lesion type: [place] artery [place] vs. transplanted heart: [place] heart Associated angina: without angina Qualified Code(s): I25.10 - Atherosclerotic heart disease of [place] coronary artery without angina pectoris History of Present Illness Date of Admission: 07/24/18 Chief Complaint: UTI, Confusion, ? Chest pain The patient is a 72 y/o M w/ PMHx: Chronic COPD, CAD s/p CABG, HTN, HLD, Tobacco use history, Multiple sclerosis, BPH, Anxiety and Depression, history of ruptured aortic aneurysm in November 2017 complicated by respiratory failure with eventual trach placement, now removed with notable fdc facility ongoing care following who presents to the [facility] ED on 07/24/18 following discussion with ED physician w/ [facility] with noted initially concern Sunday with elevated T 101, chronic indwelling gillespie, UA obtain UCx obtained, pending, had been initiated on bactrim, but had worsened confusion and agitation with evaluation on day of transition to ED w/ noted patient complaint of non-specific chest pain, noted to occur only with transfer to cot. From review, EKG read as possible atrial fibrillation and OK; however, review per ED and hospitalist w/ evidence on ly sinus rhythm with no acute cardiopulmonary findings. In the ED patient denied any chest discomfort event with transfers. Gillespie catheter was changed and repeat UA sent as well as urine culture. Work-up in the ED included T 98.1, heart rate 79, BP 113/70, initial respiratory rate 26 with improvement to 16, 94% on 2 L cannula with improvement to 98% on room air, CBC with WBC 8.9, hemoglobin 11.3, platelet 201 with left shift, unremarkable coags, unremarkable CMP aside BUN mildly elevated 23, lactic acid 1.2, troponin less than 0.015, urinalysis with specific gravity 1.015, turbid appearing, protein 100, ketones 15, occult blood 250, negative nitrite, leukocyte esterase 25, RBC greater than 100, WBC 5-10, scams epithelial cells 5-10, bacteria 1+, urine culture and culture x2 pending per ED, chest x-ray with prominent bronchopulmonary marking pattern of the right lung base of unclear etiology, status post sternotomy, atrial appendage clip identified, calcified plaques of the aortic arch. In the ED patient administered Rocephin, normal saline. Past Medical History Past Medical History (Chronic Problems): Chronic Problems BPH (benign prostatic hyperplasia) (Chronic) Hypertension (Chronic) Multiple sclerosis (Chronic) COPD (chronic obstructive pulmonary disease) (Chronic) CAD (coronary artery disease) (Chronic) HLD (hyperlipidemia) (Chronic) Chronic indwelling Gillespie catheter (Chronic) Ruptured aortic aneurysm (Chronic) Allergies Penicillins [PCN] Allergy (Verified 07/24/18 15:40) Angioedema all cillins Allergy (Uncoded 07/24/18 15:40) Angioedema Home Medications: Ambulatory Orders Medication Instructions Recorded Aspirin [Aspirin, Baby] 81 mg PO DAILY 12/06/17 Budesonide 2 ml INHALATION DAILY 12/06/17 Finasteride [Proscar] 5 mg PO DAILY 12/06/17 Ipratropium/Albuterol Sulfate 3 ml INHALATION Q4H PRN PRN 12/06/17 [Duoneb] Metoprolol Tartrate [Lopressor 25 mg PO BID 12/06/17 (beta shena)] Tamsulosin HCl [Flomax] 0.4 mg PO QHS 12/06/17 Acetaminophen 650 mg PO Q4H PRN PRN 07/24/18 Aspirin E.C. [Ecotrin] 650 mg PO PRN PRN 07/24/18 Atorvastatin Calcium [Lipitor] 40 mg PO QHS 07/24/18 Baclofen 10 mg PO BID 07/24/18 Buspirone HCl 15 mg PO BID 07/24/18 Cyanocobalamin [Vitamin B12] 500 mcg PO DAILY@0800 07/24/18 Escitalopram Oxalate 10 mg PO DAILY 07/24/18 Lactobacillus Rhamnosus GG 1 each PO DAILY 07/24/18 [Culturelle] Lorazepam [Ativan] 0.5 mg PO Q6H PRN PRN 07/24/18 Multivitamin [Daily [place]] 1 tab PO DAILY 07/24/18 Omeprazole 20 mg PO DAILY 07/24/18 Phenazopyridine [Pyridium] 100 mg PO 4X/DAY 07/24/18 Polyethylene Glycol 3350 [Miralax] 17 gm PO QODAY 07/24/18 Smz/Tmp Ds [Bactrim Ds] 1 tablet PO BID 07/24/18 Surgical History: - - CABG x 2, left knee replacement, right total hip replacement, tracheostomy with eventual removal, repair of ruptured aortic aneurysm. Psychiatric History: Anxiety, Depression Lives: Long-Term Smoking Status: Former smoker - Patient has been tobacco free since aortic aneurysm rupture in November 2017. Tobacco Use: Non-smoker Alcohol: None Drugs: None - *Family History Maternal History Items: No pertinent history - Patient mother at age 84, healthy otherwise with no history of cancer, heart disease, diabetes. Paternal History Items: Unknown - Patient does not know his paternal family history. Review of Systems Constitutional: Reports: Anorexia, Malaise, Weakness, Fatigue. Denies: Chills, Fever, Weight Change HEENT: Denies: Head Aches, Sinus Congestion, Sinus Drainage Cardiovascular: Reports: Chest Pain. Denies: Chest Pressure, Chest Tightness, Heaviness, Light Headedness, Orthopnea, Palpitations, Syncope Respiratory: Reports: Cough. Denies: Shortness of breath at rest, Sputum production Gastrointestinal: Denies: Abdominal Pain, Nausea, Vomiting Genitourinary: Reports: Dysuria Musculoskeletal: Reports: Joint Pain. Denies: Joint Tenderness Skin: Denies: Rash, Wounds Neurological: Reports: Confusion. Denies: Focal weakness, Numbness, Tingling Psychiatric: Reports: Anxiety, Depression. Denies: Homicidal Ideations, Suicidal Ideations Hematologic/ Lymphatic: Reports: Easy Bruising, Easy Bleeding VTE Information - Inpt Only VTE Present on Admission: No VTE Mechan Device Prophylaxis: SCD's VTE Pharm Prophylaxis ordered?: Yes Patient Problems: Active and Suspected Problems Encephalopathy acute (Acute) UTI (urinary tract infection) (Acute) Chest pain (Acute) Subjective: Seated upright in ED bed, fatigued appearance, intermittently interactive, hard of hearing. Objective: Physical Examination: General: awake, intermittently interactive, intermittently alert, oriented to self and some recent events, difficult to assess secondary to severity of hearing deficit, remains cooperative, seated upright in the ED bed in no apparent distress. Skin: normal color, turgor, no icterus, cyanosis except notable bilateral lower extremity peripheral vascular disease skin changes.. HEENT: AT/NC, EOMI, PERRLA, only dry MM, no carotid bruits or JVD noted. Lungs: CTA bilaterally, moderate effort, mild decrease BL bases, no rales, ronchi or wheezing. Heart: Regular rate and rhythm; no gallop, rub audible. Abdomen: soft, NTTP, ND, normal BS, no HSM. Extremities: no cyanosis, clubbing, see skin. Neurological: patient awake, intermittently interactive, intermittently alert, oriented as noted; cognitive function not baseline intact; pupils equally reactive to light and accomodation; cranial nerves II-XII grossly normal, moving all 4 extremities, no focal deficits, strength moderately globally decreased secondary to acute presentation. Psychiatric: affect appears flat, fatigued, no acute evidence of depressive or anxiety feelings. - Physical Exam Vital Signs Temp Pulse Resp BP Pulse Ox 98.2 F 90 22 H 133/87 H 98 07/24/18 20:23 07/24/18 20:15 07/24/18 20:15 07/24/18 20:15 07/24/18 20:15 Oxygen Flow Rate (L/min) 2 Oxygen Delivery Method Nasal Cannula Weight: 182 lb 1.629 oz Body Mass Index (BMI) 20.0 Laboratory Tests Past 24 Hrs 07/24/18 07/24/18 07/24/18 15:45 15:45 15:45 WBC 8.9 RBC 3.94 L Hgb 11.3 L Hct 35.0 L MCV 88.8 MCH 28.7 MCHC 32.3 RDW 14.6 RDW Differential 47.9 H Plt Count 201 MPV 9.0 Immature Gran % (Auto) 0.100 Neut % (Auto) 80.0 H Lymph % (Auto) 8.7 L [place] % (Auto) 10.2 H Eos % (Auto) 0.9 Baso % (Auto) 0.1 Absolute Neuts (auto) 7.2 Absolute Lymphs (auto) 0.78 L Total Counted Not Reportable PT 13.6 INR 1.1 APTT 34.3 Sodium 139 Potassium 3.9 Chloride 104 Carbon Dioxide 26.0 Anion Gap 9 BUN 23 H Creatinine 1.01 Estim Creat Clear Calc 77.24 Est GFR (MDRD) Af Amer 93 Est GFR (MDRD) Non-Af 77 BUN/Creatinine Ratio 22.8 H Glucose 98 Lactic Acid Calcium 8.4 L Total Bilirubin 0.40 AST 17 ALT 16 Alkaline Phosphatase 84 Troponin I < 0.015 Total Protein 7.0 Albumin 3.3 Globulin 3.7 Albumin/Globulin Ratio 0.9 Urine Color Urine Clarity Urine pH Ur Specific [place] Urine Protein Urine Glucose (UA) Urine Ketones Urine Occult Blood Urine Nitrite Urine Bilirubin Urine Urobilinogen Ur Leukocyte Esterase Urine RBC Urine WBC Ur Squamous Epith Cells Amorphous Sediment Urine Bacteria Urine Mucus 07/24/18 07/24/18 15:45 17:10 WBC RBC Hgb Hct MCV MCH MCHC RDW RDW Differential Plt Count MPV Immature Gran % (Auto) Neut % (Auto) Lymph % (Auto) [place] % (Auto) Eos % (Auto) Baso % (Auto) Absolute Neuts (auto) Absolute Lymphs (auto) Total Counted PT INR APTT Sodium Potassium Chloride Carbon Dioxide Anion Gap BUN Creatinine Estim Creat Clear Calc Est GFR (MDRD) Af Amer Est GFR (MDRD) Non-Af BUN/Creatinine Ratio Glucose Lactic Acid 1.2 Calcium Total Bilirubin AST ALT Alkaline Phosphatase Troponin I Total Protein Albumin Globulin Albumin/Globulin Ratio Urine Color LESLIE Urine Clarity Turbid Urine pH 8.0 Ur Specific [place] 1.015 Urine Protein 100 H Urine Glucose (UA) Normal Urine Ketones 15 H Urine Occult Blood 250 H Urine Nitrite Negative Urine Bilirubin Negative Urine Urobilinogen Normal Ur Leukocyte Esterase 25 H Urine RBC > 100 SEEN Urine WBC 5-10 SEEN Ur Squamous Epith Cells 5-10 SEEN Amorphous Sediment 2+ PHOS Urine Bacteria 1+ Urine Mucus 0 SEEN Assessment/Plan All Active Problems Septic shock (Acute) Weakness (Acute) History of left knee replacement (Resolved) Encephalopathy acute (Acute) UTI (urinary tract infection) (Acute) Chest pain (Acute) The patient is a 72 y/o M w/ PMHx: Chronic COPD, CAD s/p CABG, HTN, HLD, Tobacco use history, Multiple sclerosis, BPH, Anxiety and Depression, history of ruptured aortic aneurysm in November 2017 complicated by respiratory failure with eventual trach placement, now removed with notable fdc facility ongoing care following who presents to the [facility] ED on 07/24/18 following discussion with ED physician w/ SNF [facility] with noted initially concern Sunday with elevated T 101, chronic indwelling gillespie, UA obtain UCx obtained, pending, had been initiated on bactrim, but had worsened confusion and agitation with evaluation on day of transition to ED w/ noted patient complaint of non-specific chest pain, noted to occur with transfers only with EKG read as possible atrial fibrillation; however, read per ED sinus rhythm with no acute cardiopulmonary findings. (1) Acute Encephalopathy (Infectious) secondary to Acute Urinary Tract Infection: Will admit to [facility] on telemetry although suspect chest discomfort is incorrect and musculoskeletal in etiology if present given complaint primarily with transfers, repeat UA in the ED following Gillespie catheter change not severe appearing, pending urine culture, in interim will continue IVFs, monitor I/Os, continue IV Rocephin w/ transition as able pending sensitivities and speciation. Bld cx x 2 obtained in the ED. (2) Atypical chest discomfort, suspected muscular etiology: EKG in ED no acute evidence of ischemia, CXR w/ no acute cardiopulmonary findings with chronic changes, initial trop normal x1. Will place on a monitored bed to assure no acute myocardial infarction with serial cardiac enzymes and EKGs. ASA, NG, morphine. (3) Chronic COPD: Continue ATC duonebs, PRN albuterol, HOB, IS parameters. (4) Hypertension: Continue home regimen including metoprolol, PRN hydralazine. (5) Hyperlipidemia: Continue home statin regimen. (6) CAD: s/p CABG, continue home regimen asa, statin, BB regimen. (7) Tobacco Abuse: Encouraged cessation, inpatient consultation per RT, NR if desired. (8) Anxiety and Depression: Continue home escitalopram, buspar and as needed low-dose Ativan regimen regimen. (9) BPH: Continue home flomax and Proscar regimen. (10) Multiple Sclerosis: Not on regimen, recommended continued evaluation per his neurologist. (11) GERD: PPI. (12) DVT Prophylaxis: SCDs, hold on initiation of Lovenox as hematuria noted with possible UTI, start if improving. (13) Code status: Full Code. Code Visit Inpatient E&M: 98247 Init Hosp L3
--- NOTE | 2018-07-24 20:31 | HP.PCM_ITS ---
Problem List (1) Encephalopathy acute Status: Acute (2) UTI (urinary tract infection) Status: Acute Qualifiers: Urinary tract infection type: catheter-associated UTI Indwelling urinary catheter type: indwelling urethral catheter Encounter type: initial encounter Qualified Code(s): T83.511A - Infection and inflammatory reaction due to indwelling urethral catheter, initial encounter; N39.0 - Urinary tract infection, site not specified (3) Chest pain Status: Acute Qualifiers: Chest pain type: unspecified Qualified Code(s): R07.9 - Chest pain, unspecified (4) HLD (hyperlipidemia) Status: Chronic Qualifiers: Hyperlipidemia type: pure hypercholesterolemia Qualified Code(s): E78.00 - Pure hypercholesterolemia, unspecified; E78.0 - Pure hypercholesterolemia (5) Chronic indwelling Gillespie catheter Status: Chronic (6) Ruptured aortic aneurysm Status: Chronic Qualifiers: Aortic location: unspecified Qualified Code(s): I71.8 - Aortic aneurysm of unspecified site, ruptured (7) BPH (benign prostatic hyperplasia) Status: Chronic Qualifiers: Lower urinary tract symptom presence: symptoms present Lower urinary tract symptom detail: urinary frequency Qualified Code(s): N40.1 - Benign prostatic hyperplasia with lower urinary tract symptoms; R35.0 - Frequency of micturition (8) Hypertension Status: Chronic Qualifiers: Hypertension type: essential hypertension Qualified Code(s): I10 - Essential (primary) hypertension (9) Multiple sclerosis Status: Chronic (10) COPD (chronic obstructive pulmonary disease) Status: Chronic Qualifiers: COPD type: unspecified COPD Qualified Code(s): J44.9 - Chronic obstructive pulmonary disease, unspecified (11) CAD (coronary artery disease) Status: Chronic Qualifiers: Coronary Disease-Associated Artery/Lesion type: [place] artery [place] vs. transplanted heart: [place] heart Associated angina: without angina Qualified Code(s): I25.10 - Atherosclerotic heart disease of [place] coronary artery without angina pectoris History of Present Illness Date of Admission: 07/24/18 Chief Complaint: UTI, Confusion, ? Chest pain The patient is a 72 y/o M w/ PMHx: Chronic COPD, CAD s/p CABG, HTN, HLD, Tobacco use history, Multiple sclerosis, BPH, Anxiety and Depression, history of ruptured aortic aneurysm in November 2017 complicated by respiratory failure with eventual trach placement, now removed with [facility] ongoing care following who presents to the [facility] ED on 07/24/18 following discus [place] with ED physician w/ SNF PHYS[facility] SECURITY SPECIALIST with noted initially concern Sunday with elevated T 101, chronic indwelling gillespie, UA obtain UCx obtained, pending, had been initiated on bactrim, but had worsened confusion and agitation with evaluation on day of transition to ED w/ noted patient complaint of non-specific chest pain, noted to occur only with transfer to cot. From review, EKG read as possible atrial fibrillation and DE; however, review per ED and hospitalist w/ evidence on ly sinus rhythm with no acute cardiopulmonary findings. In the ED patient denied any chest discomfort event with transfers. Gillespie catheter was changed and repeat UA sent as well as urine culture. Work-up in the ED included T 98.1, heart rate 79, BP 113/70, initial respiratory rate 26 with improvement to 16, 94% on 2 L cannula with improvement to 98% on room air, CBC with WBC 8.9, hemoglobin 11.3, platelet 201 with left shift, unremarkable coags, unremarkable CMP aside BUN mildly elevated 23, lactic acid 1.2, troponin less than 0.015, urinalysis with specific gravity 1.015, turbid appearing, protein 100, ketones 15, occult blood 250, negative nitrite, leukocyte esterase 25, RBC greater than 100, WBC 5-10, scams epithelial cells 5-10, bacteria 1+, urine culture and culture x2 pending per ED, chest x-ray with prominent bronchopulmonary marking pattern of the right lung base of unclear etiology, status post sternotomy, atrial appendage clip identified, calcified plaques of the aortic arch. In the ED patient administered Rocephin, normal saline. Past Medical History Past Medical History (Chronic Problems): Chronic Problems BPH (benign prostatic hyperplasia) (Chronic) Hypertension (Chronic) Multiple sclerosis (Chronic) COPD (chronic obstructive pulmonary disease) (Chronic) CAD (coronary artery disease) (Chronic) HLD (hyperlipidemia) (Chronic) Chronic indwelling Gillespie catheter (Chronic) Ruptured aortic aneurysm (Chronic) Allergies Penicillins [PCN] Allergy (Verified 07/24/18 15:40) Angioedema all cillins Allergy (Uncoded 07/24/18 15:40) Angioedema Home Medications: Ambulatory Orders Medication Instructions Recorded Aspirin [Aspirin, Baby] 81 mg PO DAILY 12/06/17 Budesonide 2 ml INHALATION DAILY 12/06/17 Finasteride [Proscar] 5 mg PO DAILY 12/06/17 Ipratropium/Albuterol Sulfate 3 ml INHALATION Q4H PRN PRN 12/06/17 [Duoneb] Metoprolol Tartrate [Lopressor 25 mg PO BID 12/06/17 (beta shena)] Tamsulosin HCl [Flomax] 0.4 mg PO QHS 12/06/17 Acetaminophen 650 mg PO Q4H PRN PRN 07/24/18 Aspirin E.C. [Ecotrin] 650 mg PO PRN PRN 07/24/18 Atorvastatin Calcium [Lipitor] 40 mg PO QHS 07/24/18 Baclofen 10 mg PO BID 07/24/18 Buspirone HCl 15 mg PO BID 07/24/18 Cyanocobalamin [Vitamin B12] 500 mcg PO DAILY@0800 07/24/18 Escitalopram Oxalate 10 mg PO DAILY 07/24/18 Lactobacillus Rhamnosus GG 1 each PO DAILY 07/24/18 [Culturelle] Lorazepam [Ativan] 0.5 mg PO Q6H PRN PRN 07/24/18 Multivitamin [Daily Chalo] 1 tab PO DAILY 07/24/18 Omeprazole 20 mg PO DAILY 07/24/18 Phenazopyridine [Pyridium] 100 mg PO 4X/DAY 07/24/18 Polyethylene Glycol 3350 [Miralax] 17 gm PO QODAY 07/24/18 Smz/Tmp Ds [Bactrim Ds] 1 tablet PO BID 07/24/18 Surgical History: - - CABG x 2, left knee replacement, right total hip replacement, tracheostomy with eventual removal, repair of ruptured aortic aneurysm. Psychiatric History: Anxiety, Depression Lives: Shelter Smoking Status: Former smoker - Patient has been tobacco free since aortic aneurysm rupture in November 2017. Tobacco Use: Non-smoker Alcohol: None Drugs: None - *Family History Maternal History Items: No pertinent history - Patient mother at age 84, healthy otherwise with no history of cancer, heart disease, diabetes. Paternal History Items: Unknown - Patient does not know his paternal family history. Review of Systems Constitutional: Reports: Anorexia, Malaise, Weakness, Fatigue. Denies: Chills, Fever, Weight Change HEENT: Denies: Head Aches, Sinus Congestion, Sinus Drainage Cardiovascular: Reports: Chest Pain. Denies: Chest Pressure, Chest Tightness, Heaviness, Light Headedness, Orthopnea, Palpitations, Syncope Respiratory: Reports: Cough. Denies: Shortness of breath at rest, Sputum production Gastrointestinal: Denies: Abdominal Pain, Nausea, Vomiting Genitourinary: Reports: Dysuria Musculoskeletal: Reports: Joint Pain. Denies: Joint Tenderness Skin: Denies: Rash, Wounds Neurological: Reports: Confusion. Denies: Focal weakness, Numbness, Tingling Psychiatric: Reports: Anxiety, Depression. Denies: Homicidal Ideations, Suicidal Ideations Hematologic/ Lymphatic: Reports: Easy Bruising, Easy Bleeding VTE Information - Inpt Only VTE Present on Admission: No VTE Mechan Device Prophylaxis: SCD's VTE Pharm Prophylaxis ordered?: Yes Patient Problems: Active and Suspected Problems Encephalopathy acute (Acute) UTI (urinary tract infection) (Acute) Chest pain (Acute) Subjective: Seated upright in ED bed, fatigued appearance, intermittently interactive, hard of hearing. Objective: Physical Examination: General: awake, intermittently interactive, intermittently alert, oriented to self and some recent events, difficult to assess secondary to severity of hearing deficit, remains cooperative, seated upright in the ED bed in no apparent distress. Skin: normal color, turgor, no icterus, cyanosis except notable bilateral lower extremity peripheral vascular disease skin changes.. HEENT: AT/NC, EOMI, PERRLA, only dry MM, no carotid bruits or JVD noted. Lungs: CTA bilaterally, moderate effort, mild decrease BL bases, no rales, ronchi or wheezing. Heart: Regular rate and rhythm; no gallop, rub audible. Abdomen: soft, NTTP, ND, normal BS, no HSM. Extremities: no cyanosis, clubbing, see skin. Neurological: patient awake, intermittently interactive, intermittently alert, oriented as noted; cognitive function not baseline intact; pupils equally reactive to light and accomodation; cranial nerves II-XII grossly normal, moving all 4 extremities, no focal deficits, strength moderately globally decreased secondary to acute presentation. Psychiatric: affect appears flat, fatigued, no acute evidence of depressive or anxiety feelings. - Physical Exam Vital Signs Temp Pulse Resp BP Pulse Ox 98.2 F 90 22 H 133/87 H 98 07/24/18 20:23 07/24/18 20:15 07/24/18 20:15 07/24/18 20:15 07/24/18 20:15 Oxygen Flow Rate (L/min) 2 Oxygen Delivery Method Nasal Cannula Weight: 182 lb 1.629 oz Body Mass Index (BMI) 20.0 Laboratory Tests Past 24 Hrs 07/24/18 07/24/18 07/24/18 15:45 15:45 15:45 WBC 8.9 RBC 3.94 L Hgb 11.3 L Hct 35.0 L MCV 88.8 MCH 28.7 MCHC 32.3 RDW 14.6 RDW Differential 47.9 H Plt Count 201 MPV 9.0 Immature Gran % (Auto) 0.100 Neut % (Auto) 80.0 H Lymph % (Auto) 8.7 L Nolan % (Auto) 10.2 H Eos % (Auto) 0.9 Baso % (Auto) 0.1 Absolute Neuts (auto) 7.2 Absolute Lymphs (auto) 0.78 L Total Counted Not Reportable PT 13.6 INR 1.1 APTT 34.3 Sodium 139 Potassium 3.9 Chloride 104 Carbon Dioxide 26.0 Anion Gap 9 BUN 23 H Creatinine 1.01 Estim Creat Clear Calc 77.24 Est GFR (MDRD) Af Amer 93 Est GFR (MDRD) Non-Af 77 BUN/Creatinine Ratio 22.8 H Glucose 98 Lactic Acid Calcium 8.4 L Total Bilirubin 0.40 AST 17 ALT 16 Alkaline Phosphatase 84 Troponin I < 0.015 Total Protein 7.0 Albumin 3.3 Globulin 3.7 Albumin/Globulin Ratio 0.9 Urine Color Urine Clarity Urine pH Ur Specific Willard Urine Protein Urine Glucose (UA) Urine Ketones Urine Occult Blood Urine Nitrite Urine Bilirubin Urine Urobilinogen Ur Leukocyte Esterase Urine RBC Urine WBC Ur Squamous Epith Cells Amorphous Sediment Urine Bacteria Urine Mucus 07/24/18 07/24/18 15:45 17:10 WBC RBC Hgb Hct MCV MCH MCHC RDW RDW Differential Plt Count MPV Immature Gran % (Auto) Neut % (Auto) Lymph % (Auto) Nolan % (Auto) Eos % (Auto) Baso % (Auto) Absolute Neuts (auto) Absolute Lymphs (auto) Total Counted PT INR APTT Sodium Potassium Chloride Carbon Dioxide Anion Gap BUN Creatinine Estim Creat Clear Calc Est GFR (MDRD) Af Amer Est GFR (MDRD) Non-Af BUN/Creatinine Ratio Glucose Lactic Acid 1.2 Calcium Total Bilirubin AST ALT Alkaline Phosphatase Troponin I Total Protein Albumin Globulin Albumin/Globulin Ratio Urine Color LESLIE Urine Clarity Turbid Urine pH 8.0 Ur Specific Willard 1.015 Urine Protein 100 H Urine Glucose (UA) Normal Urine Ketones 15 H Urine Occult Blood 250 H Urine Nitrite Negative Urine Bilirubin Negative Urine Urobilinogen Normal Ur Leukocyte Esterase 25 H Urine RBC > 100 SEEN Urine WBC 5-10 SEEN Ur Squamous Epith Cells 5-10 SEEN Amorphous Sediment 2+ PHOS Urine Bacteria 1+ Urine Mucus 0 SEEN Assessment/Plan All Active Problems Septic shock (Acute) Weakness (Acute) History of left knee replacement (Resolved) Encephalopathy acute (Acute) UTI (urinary tract infection) (Acute) Chest pain (Acute) The patient is a 72 y/o M w/ PMHx: Chronic COPD, CAD s/p CABG, HTN, HLD, Tobacco use history, Multiple sclerosis, BPH, Anxiety and Depression, history of ruptured aortic aneurysm in November 2017 complicated by respiratory failure with eventual trach placement, now removed with [facility] facility ongoing care following who presents to the [facility] ED on 07/24/18 following discussion with ED physician w/ SNF PHYSICAL SECURITY SPECIALIST with noted initially concern Sunday with elevated T 101, chronic indwelling gillespie, UA obtain UCx obtained, pending, had been initiated on bactrim, but had worsened confusion and agitation with evaluation on day of transition to ED w/ noted patient complaint of non-specific chest pain, noted to occur with transfers only with EKG read as possible atrial fibrillation; however, read per ED sinus rhythm with no acute cardiopulmonary findings. (1) Acute Encephalopathy (Infectious) secondary to Acute Urinary Tract Infection: Will admit to [facility] on telemetry although suspect chest discomfort is incorrect and musculoskeletal in etiology if present given complaint primarily with transfers, repeat UA in the ED following Gillespie catheter change not severe appearing, pending urine culture, in interim will continue IVFs, monitor I/Os, continue IV Rocephin w/ transition as able pending sensitivities and speciation. Bld cx x 2 obtained in the ED. (2) Atypical chest discomfort, suspected muscular etiology: EKG in ED no acute evidence of ischemia, CXR w/ no acute cardiopulmonary findings with chronic changes, initial trop normal x1. Will place on a monitored bed to assure no acute myocardial infarction with serial cardiac enzymes and EKGs. ASA, NG, morphine. (3) Chronic COPD: Continue ATC duonebs, PRN albuterol, HOB, IS parameters. (4) Hypertension: Continue home regimen including metoprolol, PRN hydralazine. (5) Hyperlipidemia: Continue home statin regimen. (6) CAD: s/p CABG, continue home regimen asa, statin, BB regimen. (7) Tobacco Abuse: Encouraged cessation, inpatient consultation per RT, NR if desired. (8) Anxiety and Depression: Continue home escitalopram, buspar and as needed low-dose Ativan regimen regimen. (9) BPH: Continue home flomax and Proscar regimen. (10) Multiple Sclerosis: Not on regimen, recommended continued evaluation per his neurologist. (11) GERD: PPI. (12) DVT Prophylaxis: SCDs, hold on initiation of Lovenox as hematuria noted with possible UTI, start if improving. (13) Code status: Full Code. Code Visit Inpatient E&M: 34134 Init Hosp L3
[2018-07-24 22:16] LABS: Magnesium 2.2 mg/dL (1.6-2.6)
--- NOTE | 2018-07-24 22:30 | ED.RN ---
ATTEMPTED TWICE TO CONTACT ELEN AT [facility] AT [phone], NO ANSWER.
[2018-07-24] MEDS: busPIRone 15 MG TABLET PO (23:15)
[2018-07-24] MEDS: Metoprolol Tartrate 25 MG Tablet PO (23:15)
[2018-07-24] MEDS: Baclofen 10 MG Tablet PO (23:15)
[2018-07-24] MEDS: Atorvastatin Calcium 40 MG Tablet PO (23:15)
[2018-07-24] MEDS: Tamsulosin HCl 0.4 MG Capsule PO (23:16)
[2018-07-25] VITALS (13 sets, daily range): BP systolic 110–155; BP diastolic 58–94; PULSE 65–94; RESP 14–24; TEMP 36.4–36.9; O2SAT 94–98
--- NOTE | 2018-07-25 00:54 | ED.VISSUMM ---
- ER Visit Summary Date of Service: 07/25/18 Chief Complaint: Chest pain History of Present Illness: The patient is a 72 M who was sent from [facility] after being evaluated by nurse practitioner. She tells me that on Sunday she saw him and had a temperature of 101. She notes that he has a chronic indwelling Contreras and his urine was very foul-smelling. This was sent for culture and he was placed on Bactrim DS. He was reevaluated today and noted to be confused and agitated. He told her that he had chest pain. She obtained an EKG which she felt was concerning for atrial fibrillation. I reviewed the EKG believe this to be a sinus rhythm. He had received 650 mg of aspirin this morning. The urinalysis that was sent on Sunday again the culture is pending showed 2+ bacteria 10-25 white blood cells negative nitrates. He is confused. He tells me he is 5 foot 20 inches tall. Physical Examination: Afebrile vital signs are stable Gen: Well-nourished well-developed Head: Normocephalic atraumatic Eyes: Perrl EOMI ENT: TMs clear no rhinorrhea moist mucous membranes hard of hearing Neck: Supple no lymphadenopathy no JVD nontender CVS: Regular rate rhythm no murmurs normal S1-S2 Respiratory: No distress clear to auscultation bilaterally chest nontender Abdomen: Soft nontender nondistended normal bowel sounds no masses Back: Nontender Extremity: Nontender no edema Skin: Normal color no rash Neuro: alert disorientated CN II-XII intact normal strength sensation reflexes gait cerebellar Psych: Angry and agitated Test Results: White count 8.9. Urinalysis positive leukocyte esterase negative nitrates 1+ bacteria 5-10 white cells. Troponin negative. EKG sinus at a rate of 77 chest x-ray negative Emergency Department Course and Treatment: Cultures were obtained patient received Rocephin. Patient has a chronic indwelling Contreras. From description it sounds like he was febrile with the source being the urine 2 days ago. It is unclear if today's urinalysis is partially treated versus chronic findings. The Contreras catheter was changed. Patient is altered per the nurse practitioner who cares for him. He certainly has a degree of confusion but I do not know his baseline. Plan will be to check culture in the morning and cycle troponins. Impression: 1. UTI 2. Chest pain This note was generated with [employer] dictation software. It may contain incorrect words, spelling, and punctuation that were not noted in review of the chart prior to signing ED Disposition - Plan for ED Patient: Disposition: Acute [facility]
--- NOTE | 2018-07-25 00:58 | ED.DCSUM_ITS ---
- ER Visit Summary Date of Service: 07/25/18 Chief Complaint: Chest pain History of Present Illness: The patient is a 72 M who was sent from [facility] after being evaluated by nurse practitioner. She tells me that on Sunday she saw him and had a temperature of 101. She notes that he has a c hronic indwelling Contreras and his urine was very foul-smelling. This was sent for culture and he was placed on Bactrim DS. He was reevaluated today and noted to be confused and agitated. He told her that he had chest pain. She obtained an EKG which she felt was concerning for atrial fibrillation. I reviewed the EKG believe this to be a sinus rhythm. He had received 650 mg of aspirin this emma modi. The urinalysis that was sent on Sunday again the culture is pending showed 2+ bacteria 10-25 white blood cells negative nitrates. He is confused. He tells me he is 5 foot 20 inches tall. Physical Examination: Afebrile vital signs are stable Gen: Well-nourished well-developed Head: Normocephalic atraumatic Eyes: Perrl EOMI ENT: TMs clear no rhinorrhea moist mucous membranes hard of hearing Neck: Supple no lymphadenopathy no JVD nontender CVS: Regular rate rhythm no murmurs normal S1-S2 Respiratory: No distress clear to auscultation bilaterally chest nontender Abdomen: Soft nontender nondistended normal bowel sounds no masses Back: Nontender Extremity: Nontender no edema Skin: Normal color no rash Neuro: alert disorientated CN II-XII intact normal strength sensation reflexes gait cerebellar Psych: Angry and agitated Test Results: White count 8.9. Urinalysis positive leukocyte esterase negative nitrates 1+ bacteria 5-10 white cells. Troponin negative. EKG sinus at a rate of 77 chest x-ray negative Emergency Department Course and Treatment: Cultures were obtained patient received Rocephin. Patient has a chronic indwelling Contreras. From description it sounds like he was febrile with the source being the urine 2 days ago. It is unclear if today's urinalysis is partially treated versus chronic findings. The Contreras catheter was changed. Patient is altered per the nurse practitioner who cares for him. He certainly has a degree of confusion but I do not know his baseline. Plan will be to check culture in the morning and cycle troponins. Impression: 1. UTI 2. Chest pain This note was generated with [employer] dictation software. It may contain incorrect words, spelling, and punctuation that were not noted in review of the chart prior to signing ED Disposition - Plan for ED Patient: Disposition: Acute Care Hospital [facility]
--- NOTE | 2018-07-25 01:27 | ED.RN ---
AT 0120 ANDERSON OLIVAREZ, FROM [facility] CALLED THIS NURSE TO SEE IF PT WAS ADMITTED. THIS NURSE EXPLAINED TO JUANIS, YES PT WAS ADMITTED TO [facility], AND ALSO INFORMED HER THAT TWO ATTEMPTS WERE MADE TO [facility] EARLIER AND NO ANSWER. THE NUMBER ACTUALLY WENT TO A FULL MAILBOX AND UNABLE TO LEAVE A MESSAGE.
[2018-07-25] MEDS: 0.9% Normal Saline 1,000 ML 100 ML IV ×2 (05:34→15:43)
[2018-07-25] MEDS: Nystatin Powder 15gm Bottle 1 APPLIC TOPICAL ×3 (05:35→22:33)
--- NOTE | 2018-07-25 05:55 | EKG12_ITS ---
Test Reason : AM EKG Blood Pressure : / mmHG Vent. Rate : 066 BPM Atrial Rate : 066 BPM P-R Int : 170 ms QRS Dur : 094 ms QT Int : 418 ms P-R-T Axes : 089 082 070 degrees QTc Int : 438 ms Normal sinus rhythm Septal infarct , age undetermined Abnormal ECG When compared with ECG of 24-JUL-2018 15:55, MANUAL COMPARISON REQUIRED, DATA IS UNCONFIRMED Confirmed by LAWRENCE CHRISTY ([id number]), publications editor PETER TROY ([id number]) on 07/29/2018 5:11:11 PM Referred By: Davina Cervantes Confirmed By:LAWRENCE CHRISTY
[2018-07-25 06:48] LABS: Absolute Lymphocyte Count 0.66 X10^3/ul (0.83-4.51); Absolute Neutrophil Count 5.3 X10^3/uL (2.0-7.7); Basophil# 0.01 X10^3/uL; Basophil% 0.1 % (0-1); Eosinophil# 0.07 X10^3/uL; Hematocrit 34.4 % (40-54); Hemoglobin 10.5 g/dl (13.0-16.5); Lymphocyte # 0.66 X10^3/ul (4.0); Lymphocyte % 9.8 % (19-41); Mean Corp Hgb Conc 30.5 g/gl (32-36); Mean Corpuscular Hgb 27.9 pg (27.0-32.0); Mean Corpuscular Volume 91.2 fL (80-94); Mean Platelet Vol. 8.7 fl (6.2-12.0); Monocyte# 0.62 X10^3/uL; Monocyte% 9.2 % (0-10); Neutrophil # 5.33 X10^3/uL (2.7-7.7); Neutrophil % 79.6 % (47-70); Platelet Count 207 K/mm3 (150-450); RBC Distribution Width CV 14.6 % (11.6-14.6); RBC Distribution Width SD 47.2 fl (35.1-43.9); Red Blood Count 3.77 M/mm3 (4.6-6.2); White Blood Count 6.7 K/mm3 (4.4-11.0)
[2018-07-25 06:56] LABS: POSITIVE COUNT NO; POSITIVE DIFFERENTIAL NO; POSITIVE MORPHOLOGY NO
[2018-07-25 07:06] LABS: Anion Gap 6 (5-15); BUN 18 mg/dL (7-18); Calcium,Total 8.3 mg/dL (8.5-10.1); Chloride 108 mmol/L (98-107); Creatinine, Serum 0.82 mg/dL (0.70-1.30); EST Glomerular Filtration Rate 98 mL/min (>60); Est Glom Filt Rate - Afr Amer 119 mL/min (>60); Estimated Creatinine Clearance 87.42 ml/min; Glucose 89 mg/dL (74-106); Potassium 4.1 mmol/L (3.5-5.1); Sodium Level 142 mmol/L (136-145)
[2018-07-25] MEDS: Ipratropium/Albuterol Sulfate 3 ML AMPUL.NEB INHALATION ×2 (07:11→13:23)
--- NOTE | 2018-07-25 08:14 | CPS ---
patient confused, will not wear mask. will hold pipe
[2018-07-25] MEDS: Metoprolol Tartrate 25 MG Tablet PO ×2 (09:33→22:33)
[2018-07-25] MEDS: Finasteride 5 MG Tablet PO (09:33)
[2018-07-25] MEDS: Baclofen 10 MG Tablet PO ×2 (09:34→22:33)
[2018-07-25] MEDS: Escitalopram Oxalate 10 MG Tablet PO (09:35)
[2018-07-25] MEDS: busPIRone 15 MG TABLET PO ×2 (09:36→22:33)
[2018-07-25] MEDS: Pantoprazole Sodium 20 MG Tablet PO (09:36)
[2018-07-25] MEDS: Cyanocobalamin 500 MCG Tablet PO (09:36)
[2018-07-25] MEDS: Multivitamins,Therapeutic Tablet 1 TABLET PO (09:36)
[2018-07-25] MEDS: Aspirin 81 MG TAB.CHEW PO (09:36)
[2018-07-25] MEDS: Polyethylene Glycol 3350 17 GM PACKET PO (09:37)
[2018-07-25] MEDS: Menthol/Lanolin/Calamine/Znox 113 GM Tube 1 APPLIC TOPICAL ×4 (11:46→22:34)
[2018-07-25] MEDS: Acetaminophen 325 MG Tablet 650 MG PO (14:46)
--- NOTE | 2018-07-25 16:40 | CASEMGMT ---
Social Work Note Pt is listed as being from [facility]. RADHA met with pt and pt's Luda. Luda confirms that pt is terminal manager at [facility] and that the plan is for pt to return to [facility] terminal manager or skilled. Luda states she doesn't have a preference if pt returns jail or skilled. RADHA informed Luda that this worker will call Tiffany at [facility] and fax updated clinicals and Tiffany can review. RADHA explained that pt is able to return terminal manager whenever and if Tiffany at [facility] decides to skill pt than she can do so while pt is at hospital and when pt returns to [facility]. Luda states understanding. RADHA faxed updated clinicals to Tiffany at [facility]. RADHA placed a call to Tiffany at [facility] and updated her that pt and pt's are agreeable to pt returning to jail at [facility] and if she wants to skill pt then she can submit while pt is at [facility] but that pt can return jail without pre-cert. RADHA informed Tiffany that this worker hasn't been updated when pt will be discharged yet but will keep her updated. RADHA spoke with Charge Nurse who states she is unaware if pt is discharging today but physician did order ultrasound of pt's kidneys. RADHA placed a call to Tiffany at [facility] and left her a message updating her of this. Plan: Return to [facility] when medically cleared Laura Anderson TRIAGE SPECIALIST, CREDIT REVIEW ANALYST
--- NOTE | 2018-07-25 17:00 | US_ITS ---
STUDY: RENAL ULTRASOUND - COMPLETE REASON FOR EXAM: Male, 72 years old. Hematuria TECHNIQUE: Ultrasound evaluation of the kidneys was performed with real-time and static dill-scale imaging. COMPARISON: None. FINDINGS: RIGHT KIDNEY: Normal location of the right kidney, which is normal in size. The right kidney measures 12.3 x 5.0 x 4.4 cm. There is a normal cortex of the right kidney. The renal cortex measures 1.5 cm. There is no right renal mass or cyst. There are no right renal calculi. There is no right hydronephrosis. DISTAL RIGHT URETER: There is non-visualization of the distal right ureter. There is no demonstrated right ureterovesical junction calculus. There is no demonstrated right ureteral jet. LEFT KIDNEY: Normal location of the left kidney, which is normal in size. The left kidney measures 12.4 x 5.0 x 5.2 cm. There is a normal cortex of the left kidney. The renal cortex measures 1.7 cm. There is no left renal mass or cyst. There are no left renal calculi. There is no left hydronephrosis. DISTAL LEFT URETER: There is non-visualization of the distal left ureter. There is no demonstrated left ureterovesical junction calculus. There is no demonstrated left ureteral jet. BLADDER: A Contreras catheter is present within an essentially decompressed urinary bladder. The bladder would not fill secondary to leakage when attempted bladder backfilling was performed. US/Kidney and Bladder IMPRESSION: Normal ultrasound of the kidneys. Electronically Signed: Florian Paredes MD at 18:16 EDT , Service support ,
--- NOTE | 2018-07-25 17:40 | NURSING ---
ultrasound at bedside attempting to do ultrasound of kidney/bladder. gillespie clamped prior to scan for 1.5hrs. per ultrasound, bladder only with minimal urine and unable to complete scan at this time. this RN spoke with MD and received order to instill normal saline to fill bladder for ultrasound. while attempting to instill normal saline into bladder pt very irritated--lower abdomen distended/hard. saline leaking around gillespie insertion site (has been ongoing issue). after instilling 150cc normal saline into bladder via gillespie--ultrasound attempted to view bladder again without change on scan. updated MD--states will consult Dr Ramos.
[2018-07-25] MEDS: LORazepam 0.5 MG Tablet PO (17:48)
--- NOTE | 2018-07-25 17:48 | PCM.CONS.U ---
Reason for Consult Date of Consultation: 07/25/18 Reason for Consultation: Gross hematuria catheter problems History of Present Illness: The patient is a 72 year old male coming from the long term reports that he has had a catheter since April per the family request because of incontinence. Comes into the hospital catheter was changed there is been some blood in the urine there was a question about whether the catheter is in the bladder today came in and flushed it, the catheter flushes easily [id number] it in the bladder. The primary care physician plans on getting a CAT scan to further evaluate the catheter and the blood in the urine most likely from Contreras trauma or catheter issues. Past Medical History Past Medical History (Chronic Problems): Chronic Problems BPH (benign prostatic hyperplasia) (Chronic) Hypertension (Chronic) Multiple sclerosis (Chronic) COPD (chronic obstructive pulmonary disease) (Chronic) CAD (coronary artery disease) (Chronic) HLD (hyperlipidemia) (Chronic) Chronic indwelling Contreras catheter (Chronic) Ruptured aortic aneurysm (Chronic) Allergies Penicillins [PCN] Allergy (Verified 07/24/18 15:40) Angioedema all cillins Allergy (Uncoded 07/24/18 15:40) Angioedema Home Medications: Ambulatory Orders Medication Instructions Recorded Aspirin [Aspirin, Baby] 81 mg PO DAILY 12/06/17 Budesonide 2 ml INHALATION DAILY 12/06/17 Finasteride [Proscar] 5 mg PO DAILY 12/06/17 Ipratropium/Albuterol Sulfate 3 ml INHALATION Q4H PRN PRN 12/06/17 [Duoneb] Metoprolol Tartrate [Lopressor 25 mg PO BID 12/06/17 (beta shena)] Tamsulosin HCl [Flomax] 0.4 mg PO QHS 12/06/17 Acetaminophen 650 mg PO Q4H PRN PRN 07/24/18 Aspirin E.C. [Ecotrin] 650 mg PO PRN PRN 07/24/18 Atorvastatin Calcium [Lipitor] 40 mg PO QHS 07/24/18 Baclofen 10 mg PO BID 07/24/18 Buspirone HCl 15 mg PO BID 07/24/18 Cyanocobalamin [Vitamin B12] 500 mcg PO DAILY@0800 07/24/18 Escitalopram Oxalate 10 mg PO DAILY 07/24/18 Lactobacillus Rhamnosus GG 1 each PO DAILY 07/24/18 [Culturelle] Lorazepam [Ativan] 0.5 mg PO Q6H PRN PRN 07/24/18 Multivitamin [Daily Chalo] 1 tab PO DAILY 07/24/18 Omeprazole 20 mg PO DAILY 07/24/18 Phenazopyridine [Pyridium] 100 mg PO 4X/DAY 07/24/18 Polyethylene Glycol 3350 [Miralax] 17 gm PO QODAY 07/24/18 Smz/Tmp Ds [Bactrim Ds] 1 tablet PO BID 07/24/18 Surgical History: - - CABG x 2, left knee replacement, right total hip replacement, tracheostomy with eventual removal, repair of ruptured aortic aneurysm. Psychiatric History: Anxiety, Depression Lives: [facility] Smoking Status: Former smoker Tobacco Use: Non-smoker Alcohol: None Drugs: None - *Family History Maternal History Items: No pertinent history - Patient mother at age 84, healthy otherwise with no history of cancer, heart disease, diabetes. Paternal History Items: Unknown - Patient does not know his paternal family history. Review of Systems Constitutional: Denies: Chills, Fever, Weight Change HEENT: Denies: Head Aches, Sinus Congestion, Sinus Drainage Cardiovascular: Denies: Chest Pain, Palpitations Respiratory: Denies: Cough, Shortness of breath at rest, Sputum production Gastrointestinal: Denies: Abdominal Pain, Nausea, Vomiting Genitourinary: Reports: Hematuria, Retention. Denies: Dysuria Musculoskeletal: Denies: Joint Pain, Joint Tenderness Skin: Denies: Rash, Wounds Neurological: Denies: Numbness, Tingling, Focal weakness Psychiatric: Denies: Anxiety, Depression, Homicidal Ideations, Suicidal Ideations Hematologic/ Lymphatic: Denies: Easy Bruising, Easy Bleeding Physical Exam - Physical Exam Vital Signs Temp 98.2 F 07/25/18 13:48 Pulse 65 07/25/18 13:48 Resp 14 07/25/18 13:48 BP 110/61 07/25/18 09:33 Pulse Ox 97 07/25/18 13:48 Intake & Output 07/23/18 07/24/18 07/25/18 23:59 23:59 23:59 Intake Total 2182 / 2182 Output Total 950 / 950 Balance 1232 / 1232 Weight: 75.9 kg 75.9 kg Intake: Oral 600 / 600 IV fluid/meds 1582 / 1582 Output: Urine 950 / 950 Other: Incontinent Amount Moderate General: Alert HEENT: Atraumatic Oral: Moist Mucosa Neck: Supple Lungs: Normal air movement Abdomen: Soft Comment: On examination the catheter is in place this was flushed with 50 cc of wate Microbiology Past 72 Hours 07/24/18 17:10 Urine Culture - Preliminary Urine, Clean Catch Gram negative rajiv Laboratory Tests Past 24 Hrs 07/24/18 07/24/18 07/25/18 15:45 17:10 01:22 WBC RBC Hgb Hct MCV MCH MCHC RDW RDW Differential Plt Count MPV Immature Gran % (Auto) Neut % (Auto) Lymph % (Auto) [place] % (Auto) Eos % (Auto) Baso % (Auto) Absolute Neuts (auto) Absolute Lymphs (auto) Total Counted Sodium Potassium Chloride Carbon Dioxide Anion Gap BUN Creatinine Estim Creat Clear Calc Est GFR (MDRD) Af Amer Est GFR (MDRD) Non-Af BUN/Creatinine Ratio Glucose Calcium Magnesium 2.2 Troponin I < 0.015 Urine Color LESLIE Urine Clarity Turbid Urine pH 8.0 Ur Specific [place] 1.015 Urine Protein 100 H Urine Glucose (UA) Normal Urine Ketones 15 H Urine Occult Blood 250 H Urine Nitrite Negative Urine Bilirubin Negative Urine Urobilinogen Normal Ur Leukocyte Esterase 25 H Urine RBC > 100 SEEN Urine WBC 5-10 SEEN Ur Squamous Epith Cells 5-10 SEEN Amorphous Sediment 2+ PHOS Urine Bacteria 1+ Urine Mucus 0 SEEN 07/25/18 07/25/18 07/25/18 03:34 06:30 06:30 WBC 6.7 RBC 3.77 L Hgb 10.5 L Hct 34.4 L MCV 91.2 MCH 27.9 MCHC 30.5 L RDW 14.6 RDW Differential 47.2 H Plt Count 207 MPV 8.7 Immature Gran % (Auto) 0.300 Neut % (Auto) 79.6 H Lymph % (Auto) 9.8 L [place] % (Auto) 9.2 Eos % (Auto) 1.0 Baso % (Auto) 0.1 Absolute Neuts (auto) 5.3 Absolute Lymphs (auto) 0.66 L Total Counted Not Reportable Sodium 142 Potassium 4.1 Chloride 108 H Carbon Dioxide 28.0 Anion Gap 6 BUN 18 Creatinine 0.82 Estim Creat Clear Calc 87.42 Est GFR (MDRD) Af Amer 119 Est GFR (MDRD) Non-Af 98 BUN/Creatinine Ratio 22.0 H Glucose 89 Calcium 8.3 L Magnesium Troponin I < 0.015 < 0.015 Urine Color Urine Clarity Urine pH Ur Specific [place] Urine Protein Urine Glucose (UA) Urine Ketones Urine Occult Blood Urine Nitrite Urine Bilirubin Urine Urobilinogen Ur Leukocyte Esterase Urine RBC Urine WBC Ur Squamous Epith Cells Amorphous Sediment Urine Bacteria Urine Mucus Assessment/Plan All Active Problems Septic shock (Resolved) Weakness (Resolved) History of left knee replacement (Resolved) Encephalopathy acute (Acute) UTI (urinary tract infection) (Acute) Chest pain (Acute) 72-year-old male who unfortunately has a chronic catheter because of incontinence. Catheter flushed today appears to be in proper position in the bladder and the prostate also I would recommend a CAT scan to further evaluate the bleeding but probably source of bleeding could just be Contreras trauma, etc. the catheter was changed recently. For now we will review CAT scan and can flush the catheter as necessary. Call with questions
--- NOTE | 2018-07-25 17:51 | NURSING ---
Dr Ramos in at bedside to irrigate gillespie. no signs of clots noted--saline flowing in/out without difficulty. still with some leaking around gillespie insertion site. recommended ordering CT scan and holding off on ultrasound. at bedside.
--- NOTE | 2018-07-25 19:10 | CT_ITS ---
STUDY: CT ABDOMEN AND PELVIS WITHOUT CONTRAST REASON FOR EXAM: Male, 72 years old. Hematuria RADIATION DOSAGE (If Supplied By Facility): CTDIvol = ( 8.45 ) mGy, DLP = ( 397.09 ) mGycm TECHNIQUE: Transaxial images were obtained from the dome of the diaphragm to the symphysis pubis without oral contrast, and without intravenous contrast. Sagittal and coronal images were reconstructed. Individualized dose optimization techniques were used for this CT. COMPARISON: Previous study of 12/07/2017 FINDINGS: There is bilateral lower lobe airspace disease. Cardiomegaly is present. There is no pericardial effusion. Normal liver. There appears to be a small amount of calcific sludge or gravel in the gallbladder. There are multiple benign calcified granulomata of the spleen. There are several calcifications of the pancreatic body. Normal bilateral adrenal glands. Normal right kidney. Normal left kidney. There are number of surgical clips in the region of the GE junction. Small bowel is difficult to assess with the absence of oral contrast. There is no obvious small bowel abnormality. There is a large amount of colonic stool, particularly in the rectal vault. There is non-visualization of the appendix. There are calcified plaques of the abdominal aorta and common iliac arteries. Normal inferior vena cava. Normal retroperitoneum. A Contreras catheter is present within a decompressed urinary bladder. Normal abdominal wall. Status post total right hip replacement changes are noted. There are diffuse degenerative changes of the visualized thoracolumbar spine. CT/Abdomen/Pelvis without Cont IMPRESSION: 1. Bilateral lower lobe airspace disease. 2. There appears to be a small amount of calcific sludge or gravel in the gallbladder. 3. There are calcifications of the pancreatic body consistent with chronic pancreatitis. 4. Surgical clips are seen in the region of the GE junction. 5. There is a large amount of colonic stool, particularly in the rectal vault. 6. A Contreras catheter is present within a decompressed urinary bladder. 7. There is no evidence of nephro or ureterolithiasis, hydronephrosis, or hydroureter. 8. Status post total right hip replacement changes are noted. 9. There are diffuse degenerative changes of the visualized thoracolumbar spine. 10. There is no evidence of free intra-abdominal or intrapelvic air, fluid, or inflammatory process. Electronically Signed: Florian Paredes MD at 23:46 EDT , Service support ,
--- NOTE | 2018-07-25 19:45 | PCM.PROGNOTE ---
Patient Problems: Active and Suspected Problems Encephalopathy acute (Acute) UTI (urinary tract infection) (Acute) Chest pain (Acute) Subjective: Patient was seen and examined today, I talked later on in the day with his in person who was in the room. I went over the patient's CODE STATUS with her and she confirmed that she wanted the patient to be a DNR CC arrest. Patient had continued blood in his Contreras bag today, I attempted to get an ultrasound today but nursing was unable to instill normal saline into the Contreras to inflate the bladder due to discomfort. I had urology see the patient, urology felt that the bleeding was possibly caused by the changing of his Contreras catheter. I had talked with the senior care earlier today and they confirmed that he did not have bleeding in his Contreras bag in the senior care however, his told me neda that his urine was very dark in his Contreras bag and it had an odor to it before he came into the hospital yesterday. I have ordered a CT of the abdomen and pelvis for neda. Patient's urine culture which was obtained on July 22 has grown out 3 different organisms-I feel this is probably either contamination or colonization of the bladder, patient's white blood cell count today remained normal, his white blood cell count yesterday on admission was normal, patient has been afebrile. Patient's urine culture that was obtained when he came to the emergency room yesterday is growing out a gram-negative rajiv-identification unknown. I am not sure if the patient has a urine infection-he has a history of dementia and cannot verbalize symptoms to me. I have elected to keep the patient on Rocephin for now, there are no previous cultures in the computer other than the culture from 07/22/18 to get an idea of what could be growing in the urine. I reviewed the patient's EKG obtained at the senior care-it does not show any acute ischemic changes and no sign of an acute AL, there is no evidence of atrial fibrillation either. I do not know what the kind of chest pain the patient was complaining of when he was transferred to the hospital, he has no complaints today of any chest pain. Patient remains confused but directable for the most part, he is extremely hard of hearing. - Physical Exam General: Alert, Cooperative, No apparent distress, Well developed, Confused HEENT: Atraumatic, PERRLA, EOMI, Normocephalic Oral: Moist Mucosa Neck: Supple, No Nuchal Rigidity, Trachea Midline, Thyroid Normal Size and Texture Lungs: Clear to auscultation, Normal air movement, No rhonchi, No wheeze, No rales Cardiovascular: Regular rate, Regular Rhythm, Normal S1, Normal S2, No murmurs, No Ectopic Activity, PMI Normal, No rub noted Abdomen: Bowel Sounds Present, Soft, Tender - Mild abdominal tenderness is noted to palpation throughout the abdomen, there is mild tympany in the abdomen, no rebound abdominal tenderness was noted. Extremities: No edema, Capillary Refill Less than 3 Seconds Neurological: Cranial nerves II-XII grossly intact, Neuro grossly intact, Sensory exam intact to light touch and pain Psych/Mental Status: Flat Affect, - - Patient is alert but confused, he is directable, he is extremely hard of hearing Vital Signs Temp Pulse Resp BP Pulse Ox 98.2 F 65 14 110/61 97 07/25/18 13:48 07/25/18 13:48 07/25/18 13:48 07/25/18 09:33 07/25/18 13:48 Oxygen Flow Rate (L/min) 3 Oxygen Delivery Method Nasal Cannula Weight: 75.9 kg Body Mass Index (BMI) 18.3 Intake and Output for Last 24 Hours 07/23/18 07/24/18 07/25/18 23:59 23:59 23:59 Intake Total 2752 / 2752 Output Total 1100 / 1100 Balance 1652 / 1652 Microbiology Past 72 Hours 07/24/18 17:10 Urine Culture - Preliminary Urine, Clean Catch Gram negative rajiv Laboratory Tests Past 24 Hrs 07/24/18 07/25/18 07/25/18 15:45 01:22 03:34 WBC RBC Hgb Hct MCV MCH MCHC RDW RDW Differential Plt Count MPV Immature Gran % (Auto) Neut % (Auto) Lymph % (Auto) [place] % (Auto) Eos % (Auto) Baso % (Auto) Absolute Neuts (auto) Absolute Lymphs (auto) Total Counted Sodium Potassium Chloride Carbon Dioxide Anion Gap BUN Creatinine Estim Creat Clear Calc Est GFR (MDRD) Af Amer Est GFR (MDRD) Non-Af BUN/Creatinine Ratio Glucose Calcium Magnesium 2.2 Troponin I < 0.015 < 0.015 07/25/18 07/25/18 06:30 06:30 WBC 6.7 RBC 3.77 L Hgb 10.5 L Hct 34.4 L MCV 91.2 MCH 27.9 MCHC 30.5 L RDW 14.6 RDW Differential 47.2 H Plt Count 207 MPV 8.7 Immature Gran % (Auto) 0.300 Neut % (Auto) 79.6 H Lymph % (Auto) 9.8 L [place] % (Auto) 9.2 Eos % (Auto) 1.0 Baso % (Auto) 0.1 Absolute Neuts (auto) 5.3 Absolute Lymphs (auto) 0.66 L Total Counted Not Reportable Sodium 142 Potassium 4.1 Chloride 108 H Carbon Dioxide 28.0 Anion Gap 6 BUN 18 Creatinine 0.82 Estim Creat Clear Calc 87.42 Est GFR (MDRD) Af Amer 119 Est GFR (MDRD) Non-Af 98 BUN/Creatinine Ratio 22.0 H Glucose 89 Calcium 8.3 L Magnesium Troponin I < 0.015 Medical Necessity - Tobacco Use Smoking Status: Former smoker Tobacco Use: Non-smoker Assessment/Plan All Active Problems Septic shock (Resolved) Weakness (Resolved) History of left knee replacement (Resolved) Encephalopathy acute (Acute) UTI (urinary tract infection) (Acute) Chest pain (Acute) #1 acute cystitis attributed to chronic Contreras catheter use, resistant to outpatient oral therapy-patient will have a repeat CBC tomorrow, he will remain on Rocephin for now, I will await his urine cultures #2 chest pain-etiology unclear, patient has no complaints today of any chest pain, again I have reviewed his EKGs and there are no signs of ischemia on his EKGs. Patient's troponins were all normal #3 hematuria-possibly secondary to trauma from his Contreras-urology saw the patient today, they recommended a CT scan, this was ordered #4 probable BPH-patient has had a Contreras catheter since April 2018 according to his , his states that he was incontinent in the senior care and would have frequent episodes of incontinence and so a Contreras was placed. #5 dementia-I talked to the patient's family practitioner today, he verified that the patient had cognitive defects going back to 2017. This is not been charted in the patient's chart here, I will added to his problem list. #6 multiple sclerosis Code Visit Inpatient E&M: 10144 Subs Hosp L2
--- NOTE | 2018-07-25 19:49 | PN_ITS ---
Patient Problems: Active and Suspected Problems Encephalopathy acute (Acute) UTI (urinary tract infection) (Acute) Chest pain (Acute) Subjective: Patient was seen and examined today, I talked later on in the day with his in person who was in the room. I went over the patient's CODE STATUS with her and she confirmed that she wanted the patient to be a DNR CC arrest. Patient had continued blood in his Contreras bag today, I attempted to get an ultrasound today but nursing was unable to instill normal saline into the Contreras to inflate the bladder due to discomfort. I had urology see the patient, urology felt that the bleeding was possibly caused by the changing of his Contreras catheter. I had talked with the correction earlier today and they confirmed that he did not have bleeding in his Contreras bag in the correction however, his told me neda that his urine was very dark in his Contreras bag and it had an odor to it before he came into the hospital yesterday. I have ordered a CT of the abdomen and pelvis for neda. Patient's urine culture which was obtained on July 22 has grown out 3 different organisms-I feel this is probably either contamination or colonization of the bladder, patient's white blood cell count today remained normal, his white blood cell count yesterday on admission was normal, patient has been afebrile. Patient's urine culture that was obtained when he came to the emergency room yesterday is growing out a gram-negative rajiv-identification unknown. I am not sure if the patient has a urine infection-he has a history of dementia and cannot verbalize symptoms to me. I have elected to keep the patient on Rocephin for now, there are no previous cultures in the computer other than the culture from 07/22/18 to get an idea of what could be growing in the urine. I reviewed the patient's EKG obtained at the correction-it does not show any acute ischemic changes and no sign of an acute DC, there is no evidence of atrial fibrillation either. I do not know what the kind of chest pain the patient was complaining of when he was transferred to the hospital, he has no complaints today of any chest pain. Patient remains confused but directable for the most part, he is extremely hard of hearing. - Physical Exam General: Alert, Cooperative, No apparent distress, Well developed, Confused HEENT: Atraumatic, PERRLA, EOMI, Normocephalic Oral: Moist Mucosa Neck: Supple, No Nuchal Rigidity, Trachea Midline, Thyroid Normal Size and Texture Lungs: Clear to auscultation, Normal air movement, No rhonchi, No wheeze, No rales Cardiovascular: Regular rate, Regular Rhythm, Normal S1, Normal S2, No murmurs, No Ectopic Activity, PMI Normal, No rub noted Abdomen: Bowel Sounds Present, Soft, Tender - Mild abdominal tenderness is noted to palpation throughout the abdomen, there is mild tympany in the abdomen, no rebound abdominal tenderness was noted. Extremities: No edema, Capillary Refill Less than 3 Seconds Neurological: Cranial nerves II-XII grossly intact, Neuro grossly intact, Sensory exam intact to light touch and pain Psych/Mental Status: Flat Affect, - - Patient is alert but confused, he is directable, he is extremely hard of hearing Vital Signs Temp Pulse Resp BP Pulse Ox 98.2 F 65 14 110/61 97 07/25/18 13:48 07/25/18 13:48 07/25/18 13:48 07/25/18 09:33 07/25/18 13:48 Oxygen Flow Rate (L/min) 3 Oxygen Delivery Method Nasal Cannula Weight: 75.9 kg Body Mass Index (BMI) 18.3 Intake and Output for Last 24 Hours 07/23/18 07/24/18 07/25/18 23:59 23:59 23:59 Intake Total 2752 / 2752 Output Total 1100 / 1100 Balance 1652 / 1652 Microbiology Past 72 Hours 07/24/18 17:10 Urine Culture - Preliminary Urine, Clean Catch Gram negative rajiv Laboratory Tests Past 24 Hrs 07/24/18 07/25/18 07/25/18 15:45 01:22 03:34 WBC RBC Hgb Hct MCV MCH MCHC RDW RDW Differential Plt Count MPV Immature Gran % (Auto) Neut % (Auto) Lymph % (Auto) [place] % (Auto) Eos % (Auto) Baso % (Auto) Absolute Neuts (auto) Absolute Lymphs (auto) Total Counted Sodium Potassium Chloride Carbon Dioxide Anion Gap BUN Creatinine Estim Creat Clear Calc Est GFR (MDRD) Af Amer Est GFR (MDRD) Non-Af BUN/Creatinine Ratio Glucose Calcium Magnesium 2.2 Troponin I < 0.015 < 0.015 07/25/18 07/25/18 06:30 06:30 WBC 6.7 RBC 3.77 L Hgb 10.5 L Hct 34.4 L MCV 91.2 MCH 27.9 MCHC 30.5 L RDW 14.6 RDW Differential 47.2 H Plt Count 207 MPV 8.7 Immature Gran % (Auto) 0.300 Neut % (Auto) 79.6 H Lymph % (Auto) 9.8 L [place] % (Auto) 9.2 Eos % (Auto) 1.0 Baso % (Auto) 0.1 Absolute Neuts (auto) 5.3 Absolute Lymphs (auto) 0.66 L Total Counted Not Reportable Sodium 142 Potassium 4.1 Chloride 108 H Carbon Dioxide 28.0 Anion Gap 6 BUN 18 Creatinine 0.82 Estim Creat Clear Calc 87.42 Est GFR (MDRD) Af Amer 119 Est GFR (MDRD) Non-Af 98 BUN/Creatinine Ratio 22.0 H Glucose 89 Calcium 8.3 L Magnesium Troponin I < 0.015 Medical Necessity - Tobacco Use Smoking Status: Former smoker Tobacco Use: Non-smoker Assessment/Plan All Active Problems Septic shock (Resolved) Weakness (Resolved) History of left knee replacement (Resolved) Encephalopathy acute (Acute) UTI (urinary tract infection) (Acute) Chest pain (Acute) #1 acute cystitis attributed to chronic Contreras catheter use, resistant to outpatient oral therapy-patient will have a repeat CBC tomorrow, he will remain on Rocephin for now, I will await his urine cultures #2 chest pain-etiology unclear, patient has no complaints today of any chest pain, again I have reviewed his EKGs and there are no signs of ischemia on his EKGs. Patient's troponins were all normal #3 hematuria-possibly secondary to trauma from his Contreras-urology saw the patient today, they recommended a CT scan, this was ordered #4 probable BPH-patient has had a Contreras catheter since April 2018 according to his , his states that he was incontinent in the correction and would have frequent episodes of incontinence and so a Contreras was placed. #5 dementia-I talked to the patient's family practitioner today, he verified that the patient had cognitive defects going back to 2017. This is not been charted in the patient's chart here, I will added to his problem list. #6 multiple sclerosis Code Visit Inpatient E&M: 56538 Subs Hosp L2
[2018-07-25] MEDS: Atorvastatin Calcium 40 MG Tablet PO (22:33)
[2018-07-25] MEDS: Tamsulosin HCl 0.4 MG Capsule PO (22:33)
[2018-07-25] MEDS: Ceftriaxone 1 GM/50 ML BAG IV (22:33)
[2018-07-26 03:33] VITALS: BP 145/72; PULSE 91; RESP 20; TEMP 36.6; O2SAT 94
[2018-07-26] MEDS: 0.9% Normal Saline 1,000 ML 100 ML IV (04:33)
[2018-07-26 06:16] LABS: Absolute Lymphocyte Count 0.82 X10^3/ul (0.83-4.51); Absolute Neutrophil Count 6.1 X10^3/uL (2.0-7.7); Basophil# 0.01 X10^3/uL; Basophil% 0.1 % (0-1); Eosinophil# 0.12 X10^3/uL; Eosinophils% 1.6 % (0-5); Hematocrit 34.5 % (40-54); Hemoglobin 10.6 g/dl (13.0-16.5); Lymphocyte # 0.82 X10^3/ul (4.0); Lymphocyte % 10.8 % (19-41); Mean Corp Hgb Conc 30.7 g/gl (32-36); Mean Corpuscular Volume 91.3 fL (80-94); Mean Platelet Vol. 8.9 fl (6.2-12.0); Monocyte# 0.58 X10^3/uL; Monocyte% 7.6 % (0-10); Neutrophil # 6.07 X10^3/uL (2.7-7.7); Neutrophil % 79.6 % (47-70); Platelet Count 210 K/mm3 (150-450); RBC Distribution Width CV 14.4 % (11.6-14.6); RBC Distribution Width SD 46.7 fl (35.1-43.9); Red Blood Count 3.78 M/mm3 (4.6-6.2); White Blood Count 7.6 K/mm3 (4.4-11.0)
[2018-07-26 06:21] LABS: POSITIVE COUNT NO; POSITIVE DIFFERENTIAL NO; POSITIVE MORPHOLOGY NO
[2018-07-26] MEDS: Nystatin Powder 15gm Bottle 1 APPLIC TOPICAL (06:22)
[2018-07-26 08:52] VITALS: BP 127/71; PULSE 65; RESP 18; TEMP 36.8; O2SAT 95
[2018-07-26] MEDS: Aspirin 81 MG TAB.CHEW PO (09:03)
[2018-07-26] MEDS: Multivitamins,Therapeutic Tablet 1 TABLET PO (09:03)
[2018-07-26] MEDS: Cyanocobalamin 500 MCG Tablet PO (09:03)
[2018-07-26] MEDS: Pantoprazole Sodium 20 MG Tablet PO (10:26)
[2018-07-26] MEDS: Finasteride 5 MG Tablet PO (10:26)
[2018-07-26 10:27] VITALS: PULSE 84
[2018-07-26] MEDS: Escitalopram Oxalate 10 MG Tablet PO (10:27)
[2018-07-26] MEDS: busPIRone 15 MG TABLET PO (10:27)
[2018-07-26] MEDS: Metoprolol Tartrate 25 MG Tablet PO (10:27)
[2018-07-26] MEDS: Menthol/Lanolin/Calamine/Znox 113 GM Tube 1 APPLIC TOPICAL ×2 (10:27→14:04)
[2018-07-26 10:30] VITALS: PULSE 88
[2018-07-26 12:41] VITALS: PULSE 85; RESP 20; O2SAT 97
[2018-07-26] MEDS: Ipratropium/Albuterol Sulfate 3 ML AMPUL.NEB INHALATION (12:41)
[2018-07-26] MEDS: Baclofen 10 MG Tablet PO (14:04)
[2018-07-26 14:10] VITALS: BP 114/61; PULSE 71; RESP 18; TEMP 36.8; O2SAT 95
--- NOTE | 2018-07-26 14:21 | CASEMGMT ---
Social Work Note Physician is discharging pt today. RADHA faxed updated clinicals to Tiffany at [facility] and updated Tiffany that it is likely pt will be discharged today. Green sheet on chart. Pt is from snf at [facility] and will be returning snf at [facility]. Plan: Return to [facility] once medically cleared. Laura Anderson WOODWORKING BENCH CARPENTER, BASKET GRADER
--- NOTE | 2018-07-26 16:16 | CASEMGMT ---
Social Work Note Pt is discharging back to [facility] [employer]. RADHA arranged transportation via cot through [facility] for 6:00pm. Transportation form on SNF folder. RADHA placed a call to Tiffany at [facility] and left her a message regarding transportation time. RADHA updated Charge Nurse that discharge paperwork will need faxed once completed. Green sheet and fax cover sheet provided to charge nurse. Plan: Pt to discharge to [facility] alterations manager tonight at 6:00pm with [facility] transporting via cot. Laura Anderson DENTAL LABORATORY MANAGER, AMERICAN HISTORY PROFESSOR
--- NOTE | 2018-07-26 17:30 | PCM.TXEXTCAR ---
- Diet 07/24/18 21:43 Diet: Regular Food consistency:: Regular Liquid Consistency:: Regular/Thin - Routine Orders/Code [facility] Physical Therapy: Eval and Treat Occupational Therapy: Eval and Treat - Problem/Diagnosis (1) Cystitis Status: Acute Comment: Proteus Current Visit: Yes (2) Multiple sclerosis Status: Chronic Current Visit: No (3) COPD (chronic obstructive pulmonary disease) Status: Chronic Current Visit: No (4) CAD (coronary artery disease) Status: Chronic Current Visit: No (5) Hematuria Status: Acute Comment: etiology unclear Current Visit: Yes - Allergies/Procedures Done in Hospital Allergies/Adverse Reactions: Allergies Penicillins [PCN] Allergy (Verified 07/24/18 15:40) Angioedema all cillins Allergy (Uncoded 07/24/18 15:40) Angioedema Procedures: None - Type of Care/Length of Stay Estimated LOS: Convalescent Care Less Than 30 days Type of Care Needed: Skilled Rehab Potential: Good Prognosis: Good - Additional Orders/Day of Discharge H&P will serve as current which was dated: 07/24/18 Day of Discharge: 07/26/18 - Dietary and Speech Recommendations Dietitian Recommendations/Changes: Provide Ensure Enlive w/medpass. - Follow Up Care Primary Care Physician: Terell Carvalho MD [Primary Care Provider] -
--- NOTE | 2018-07-26 17:35 | TREXTCAR_ITS ---
- Diet 07/24/18 21:43 Diet: Regular Food consistency:: Regular Liquid Consistency:: Regular/Thin - Routine Orders/Code [facility]: [facility] Physical Therapy: Eval and Treat Occupational Therapy: Eval and Treat - Problem/Diagnosis (1) Cystitis Status: Acute Comment: Proteus Current Visit: Yes (2) Multiple sclerosis Status: Chronic Current Visit: No (3) COPD (chronic obstructive pulmonary disease) Status: Chronic Current Visit: No (4) CAD (coronary artery disease) Status: Chronic Current Visit: No (5) Hematuria Status: Acute Comment: etiology unclear Current Visit: Yes - Allergies/Procedures Done in Hospital Allergies/Adverse Reactions: Allergies Penicillins [PCN] Allergy (Verified 07/24/18 15:40) Angioedema all cillins Allergy (Uncoded 07/24/18 15:40) Angioedema Procedures: None - Type of Care/Length of Stay Estimated LOS: Convalescent Care Less Than 30 days Type of Care Needed: Skilled Rehab Potential: Good Prognosis: Good - Additional Orders/Day of Discharge H&P will serve as current which was dated: 07/24/18 Day of Discharge: 07/26/18 - Dietary and Speech Recommendations Dietitian Recommendations/Changes: Provide Ensure Enlive w/medpass. - Follow Up Care Primary Care Physician: Terell Carvalho MD [Primary Care Provider] -
--- NOTE | 2018-07-28 16:11 | PCM.DC.SUM ---
Discharge Date and Diagnosis Date of Admission: 07/24/18 Date of Discharge: 07/26/18 - Primary Discharge Diagnosis #1 acute cystitis attributed to chronic Contreras catheter use due to Proteus mirabilis-failed outpatient antibiotic treatment #2 chest pain-etiology unclear-noncardiac in nature #3 hematuria-possibly secondary to trauma from his Contreras #4 probable BPH #5 dementia #6 multiple sclerosis - Secondary Discharge Diagnosis Chronic Problems BPH (benign prostatic hyperplasia) (Chronic) Hypertension (Chronic) Multiple sclerosis (Chronic) COPD (chronic obstructive pulmonary disease) (Chronic) CAD (coronary artery disease) (Chronic) HLD (hyperlipidemia) (Chronic) Chronic indwelling Contreras catheter (Chronic) Ruptured aortic aneurysm (Chronic) Hospital Course and Treatment Operations: None Procedures: None Summary of Care Provided: The patient is a 72 year old M seen in the emergency room at [facility] after being sent in from a local extended care facility due to complaints of chest pain, an EKG had been obtained at the residential and the computer read it out as showing an acute DE with atrial fib. Patient had been placed on Bactrim DS 3 days prior for treatment of a presumed urinary tract infection. Due to patient's dementia, patient was a poor informant. EKG was repeated in the emergency room, this showed a normal sinus rhythm and no evidence of an DE. Patient had labs which showed a normal white blood cell count, urinalysis indicated possible urinary tract infection. Chest x-ray was negative. Patient was admitted to [place] [address], placed on IV Rocephin, and enzymes were cycled which were negative. Outpatient urine culture was reviewed, this showed the growth of 3 different organisms, urine culture done at the time patient was admitted to the hospital grew out Proteus. Patient had hematuria while he was hospitalized, urology saw the patient and felt this was secondary to Contreras catheter trauma. Patient has CT of the abdomen and pelvis performed which did not show any abnormalities that would cause hematuria. It was recommended by urology that the patient not undergo any procedures and that he should be monitored for the clearing of the hematuria. On 07/26/18, patient was seen and examined: On examination he appeared in good health and spirits. Vital signs as documented. Skin warm and dry and without overt rashes. Neck without JVD. Lungs clear. Heart exam notable for regular rhythm, normal sounds and absence of murmurs, rubs or gallops. Abdomen unremarkable and without evidence of organomegaly, masses, or abdominal aortic enlargement. Extremities nonedematous. Neuro: Cranial nerves II through XII are grossly intact, no focal motor deficits were noted, sensation to light touch and pinprick intact. Psych: Patient is alert, he is confused On 07/26/18, patient was seen and examined felt to be in stable condition for discharge to his extended care facility. - Physical Exam Vital Signs Temp Pulse Resp BP Pulse Ox 98.2 F 71 18 114/61 95 07/26/18 14:10 07/26/18 14:10 07/26/18 14:10 07/26/18 14:10 07/26/18 14:10 Oxygen Flow Rate (L/min) 2.5 Oxygen Delivery Method Nasal Cannula Weight: 75.9 kg Body Mass Index (BMI) 18.3 Intake and Output for Last 24 Hours 07/26/18 07/27/18 07/28/18 23:59 23:59 23:59 Intake Total 1755 / 1755 Output Total 1025 / 1025 Balance 730 / 730 Microbiology Past 72 Hours 07/24/18 16:15 Blood Culture - Preliminary Blood Culture (Wb) - Right Hand No growth in 48 hours. 07/24/18 16:02 Blood Culture - Preliminary Blood Culture (Wb) - Left Forearm No growth in 48 hours. 07/24/18 17:10 Urine Culture - Final Urine, Clean Catch Proteus mirabilis Home Medications: Medications to take at Discharge Aspirin [Aspirin, Baby] 81 mg PO DAILY 12/06/17 Budesonide 2 ml INHALATION DAILY 12/06/17 Finasteride [Proscar] 5 mg PO DAILY 12/06/17 Ipratropium/Albuterol Sulfate [Duoneb] 3 ml INHALATION Q4H PRN PRN 12/06/17 Metoprolol Tartrate [Lopressor (beta shena)] 25 mg PO BID 12/06/17 Tamsulosin HCl [Flomax] 0.4 mg PO QHS 12/06/17 Acetaminophen 650 mg PO Q4H PRN PRN 07/24/18 Atorvastatin Calcium [Lipitor] 40 mg PO QHS 07/24/18 Baclofen 10 mg PO BID 07/24/18 Buspirone HCl 15 mg PO BID 07/24/18 Cyanocobalamin [Vitamin B12] 500 mcg PO DAILY@0800 07/24/18 Escitalopram Oxalate 10 mg PO DAILY 07/24/18 Lactobacillus Rhamnosus GG [Culturelle] 1 each PO DAILY 07/24/18 Multivitamin [Daily Chalo] 1 tab PO DAILY 07/24/18 Omeprazole 20 mg PO DAILY 07/24/18 Polyethylene Glycol 3350 [Miralax] 17 gm PO QODAY 07/24/18 Acetaminophen [Tylenol Tablet] 650 mg PO Q6H PRN PRN tablet 07/26/18 Cephalexin [Keflex] 500 mg PO Q8 #15 capsule 07/26/18 Lorazepam [Ativan] 0.5 mg PO Q6H PRN PRN #20 tab 07/26/18 Menthol/Lanolin/Calamine/Znox [Calmoseptine Ointment] 1 applic TOPICAL 4X/DAY tube 07/26/18 Nystatin Powder [Mycostatin Powder] 1 applic TOPICAL TID bottle 07/26/18 Following Prescrptions Were Given to Patient: Lorazepam [Ativan] 0.5 mg PO Q6H PRN PRN #20 tab PRN Reason: Anxiety Cephalexin [Keflex] 500 mg PO Q8 #15 capsule Primary Care Physician: Terell Carvalho MD [Primary Care Provider] - Disposition: Group Home facility Minutes spent on discharge:: 32 Patient Condition:: Stable Medical Necessity - Tobacco Use Smoking Status: Former smoker Tobacco Use: Non-smoker Meaningful Use Info Meaningful Use Diagnoses (Choose all that apply): None applicable Code Visit Inpatient E&M: 38263 Disch Hosp
--- NOTE | 2018-07-28 16:19 | DS.PCM_ITS ---
Discharge Date and Diagnosis Date of Admission: 07/24/18 Date of Discharge: 07/26/18 - Primary Discharge Diagnosis #1 acute cystitis attributed to chronic Contreras catheter use due to Proteus mirabilis-failed outpatient antibiotic treatment #2 chest pain-etiology unclear-noncardiac in nature #3 hematuria-possibly secondary to trauma from his Contreras #4 probable BPH #5 dementia #6 multiple sclerosis - Secondary Discharge Diagnosis Chronic Problems BPH (benign prostatic hyperplasia) (Chronic) Hypertension (Chronic) Multiple sclerosis (Chronic) COPD (chronic obstructive pulmonary disease) (Chronic) CAD (coronary artery disease) (Chronic) HLD (hyperlipidemia) (Chronic) Chronic indwelling Contreras catheter (Chronic) Ruptured aortic aneurysm (Chronic) Hospital Course and Treatment Operations: None Procedures: None Summary of Care Provided: The patient is a 72 year old M seen in the emergency room at [facility] after being sent in from a local extended care facility due to complaints of chest pain, an EKG had been obtained at the snf and the computer read it out as showing an acute IA with atrial fib. Patient had been placed on Bactrim DS 3 days prior for treatment of a presumed urinary tract infection. Due to patient's dementia, patient was a poor informant. EKG was repeated in the emergency room, this showed a normal sinus rhythm and no evidence of an IA. Patient had labs which showed a normal white blood cell count, urinalysis indicated possible urinary tract infection. Chest x-ray was negative. Patient was admitted to [place] [address], placed on IV Rocephin, and enzymes were cycled which were negative. Outpatient urine culture was reviewed, this showed the growth of 3 different organisms, urine culture done at the time patient was admitted to the hospital grew out Proteus. Patient had hematuria while he was hospitalized, urology saw the patient and felt this was secondary to Contreras catheter trauma. Patient has CT of the abdomen and pelvis performed which did not show any abnormalities that would cause hematuria. It was recommended by urology that the patient not undergo any procedures and that he should be monitored for the clearing of the hematuria. On 07/26/18, patient was seen and examined: On examination he appeared in good health and spirits. Vital signs as documented. Skin warm and dry and without overt rashes. Neck without JVD. Lungs clear. Heart exam notable for regular rhythm, normal sounds and absence of murmurs, rubs or gallops. Abdomen unremarkable and without evidence of organomegaly, masses, or abdominal aortic enlargement. Extremities nonedematous. Neuro: Cranial nerves II through XII are grossly intact, no focal motor deficits were noted, sensation to light touch and pinprick intact. Psych: Patient is alert, he is confused On 07/26/18, patient was seen and examined felt to be in stable condition for discharge to his extended care facility. - Physical Exam Vital Signs Temp Pulse Resp BP Pulse Ox 98.2 F 71 18 114/61 95 07/26/18 14:10 07/26/18 14:10 07/26/18 14:10 07/26/18 14:10 07/26/18 14:10 Oxygen Flow Rate (L/min) 2.5 Oxygen Delivery Method Nasal Cannula Weight: 75.9 kg Body Mass Index (BMI) 18.3 Intake and Output for Last 24 Hours 07/26/18 07/27/18 07/28/18 23:59 23:59 23:59 Intake Total 1755 / 1755 Output Total 1025 / 1025 Balance 730 / 730 Microbiology Past 72 Hours 07/24/18 16:15 Blood Culture - Preliminary Blood Culture (Wb) - Right Hand No growth in 48 hours. 07/24/18 16:02 Blood Culture - Preliminary Blood Culture (Wb) - Left Forearm No growth in 48 hours. 07/24/18 17:10 Urine Culture - Final Urine, Clean Catch Proteus mirabilis Home Medications: Medications to take at Discharge Aspirin [Aspirin, Baby] 81 mg PO DAILY 12/06/17 Budesonide 2 ml INHALATION DAILY 12/06/17 Finasteride [Proscar] 5 mg PO DAILY 12/06/17 Ipratropium/Albuterol Sulfate [Duoneb] 3 ml INHALATION Q4H PRN PRN 12/06/17 Metoprolol Tartrate [Lopressor (beta shena)] 25 mg PO BID 12/06/17 Tamsulosin HCl [Flomax] 0.4 mg PO QHS 12/06/17 Acetaminophen 650 mg PO Q4H PRN PRN 07/24/18 Atorvastatin Calcium [Lipitor] 40 mg PO QHS 07/24/18 Baclofen 10 mg PO BID 07/24/18 Buspirone HCl 15 mg PO BID 07/24/18 Cyanocobalamin [Vitamin B12] 500 mcg PO DAILY@0800 07/24/18 Escitalopram Oxalate 10 mg PO DAILY 07/24/18 Lactobacillus Rhamnosus GG [Culturelle] 1 each PO DAILY 07/24/18 Multivitamin [Daily Chalo] 1 tab PO DAILY 07/24/18 Omeprazole 20 mg PO DAILY 07/24/18 Polyethylene Glycol 3350 [Miralax] 17 gm PO QODAY 07/24/18 Acetaminophen [Tylenol Tablet] 650 mg PO Q6H PRN PRN tablet 07/26/18 Cephalexin [Keflex] 500 mg PO Q8 #15 capsule 07/26/18 Lorazepam [Ativan] 0.5 mg PO Q6H PRN PRN #20 tab 07/26/18 Menthol/Lanolin/Calamine/Znox [Calmoseptine Ointment] 1 applic TOPICAL 4X/DAY tube 07/26/18 Nystatin Powder [Mycostatin Powder] 1 applic TOPICAL TID bottle 07/26/18 Following Prescrptions Were Given to Patient: Lorazepam [Ativan] 0.5 mg PO Q6H PRN PRN #20 tab PRN Reason: Anxiety Cephalexin [Keflex] 500 mg PO Q8 #15 capsule Primary Care Physician: Terell Carvalho MD [Primary Care Provider] - Disposition: Snf facility Minutes spent on discharge:: 32 Patient Condition:: Stable Medical Necessity - Tobacco Use Smoking Status: Former smoker Tobacco Use: Non-smoker Meaningful Use Info Meaningful Use Diagnoses (Choose all that apply): None applicable Code Visit Inpatient E&M: 72254 Disch Hosp
== END 2018-07-26 18:30 | disposition skilled nursing facility (03) | DRG 699 ==
LOC: ED 20:46 → MS3 21:18
PROVIDERS: Admitting Provider Family Medicine; Emergency Provider Emergency Medicine; Family Provider Family Medicine; PCP Family Medicine; Referring Provider Family Medicine; Visit Provider Internal Medicine
DX: T83.511A Infection and inflammatory reaction due to indwelling urethral catheter, initial encounter (principal); N30.00 Acute cystitis without hematuria; S37.90XA Unspecified injury of unspecified urinary and pelvic organ, initial encounter; G93.49 Other encephalopathy; I25.10 Atherosclerotic heart disease of native coronary artery without angina pectoris; Z95.1 Presence of aortocoronary bypass graft; G35 Multiple sclerosis; N40.0 Benign prostatic hyperplasia without lower urinary tract symptoms; J44.9 Chronic obstructive pulmonary disease, unspecified; E78.5 Hyperlipidemia, unspecified; Z66 Do not resuscitate; F03.90 Unspecified dementia, unspecified severity, without behavioral disturbance, psychotic disturbance, mood disturbance, and anxiety; R32 Unspecified urinary incontinence; B96.4 Proteus (mirabilis) (morganii) as the cause of diseases classified elsewhere; R07.89 Other chest pain; I10 Essential (primary) hypertension; Y84.6 Urinary catheterization as the cause of abnormal reaction of the patient, or of later complication, without mention of misadventure at the time of the procedure; Z87.891 Personal history of nicotine dependence
CPT/HCPCS: 36415; 71045; 74176; 76770; 80048; 80053; 81001; 83605; 83735; 84484; 85025; 85027; 85610; 85730; 87040; 87077; 87086; 87088; 87186; 93005; 94640; 97162; 97166; 97530; 97802; 99285; J7030; J7040; A4216

== ENCOUNTER → 2018-08-26 06:24 | Outpatient (REF) | payer MEDICARE, SELFPAY ==
[2018-07-24 21:44] VITALS: BMI 18.3
[2018-08-26 08:16] LABS: Hematocrit 37.6 % (40-54); Hemoglobin 11.7 g/dl (13.0-16.5); Mean Corp Hgb Conc 31.1 g/gl (32-36); Mean Corpuscular Hgb 28.1 pg (27.0-32.0); Mean Corpuscular Volume 90.2 fL (80-94); Mean Platelet Vol. 9.3 fl (6.2-12.0); Platelet Count 139 K/mm3 (150-450); RBC Distribution Width CV 14.9 % (11.6-14.6); RBC Distribution Width SD 48.4 fl (35.1-43.9); Red Blood Count 4.17 M/mm3 (4.6-6.2); White Blood Count 9.5 K/mm3 (4.4-11.0)
[2018-08-26 08:19] LABS: Scan Indicated on CBC? Y/N NO
[2018-08-26 08:23] LABS: Anion Gap 4 (5-15); BUN 26 mg/dL (7-18); BUN/Creat Ratio 27.2 RATIO (10-20); Calcium,Total 8.3 mg/dL (8.5-10.1); Chloride 106 mmol/L (98-107); Creatinine, Serum 0.96 mg/dL (0.70-1.30); EST Glomerular Filtration Rate 82 mL/min (>60); Est Glom Filt Rate - Afr Amer 99 mL/min (>60); Glucose 93 mg/dL (74-106); Potassium 4.2 mmol/L (3.5-5.1); Sodium Level 140 mmol/L (136-145)
== END ==
LOC: OLS.WHLEAS 06:24
PROVIDERS: Visit Provider Family Medicine
DX: J44.9 Chronic obstructive pulmonary disease, unspecified (principal); I25.10 Atherosclerotic heart disease of native coronary artery without angina pectoris
CPT/HCPCS: 36415; 80048; 85027

== ENCOUNTER → 2018-09-02 06:35 | Outpatient (REF) | payer MEDICARE, SELFPAY ==
[2018-07-24 21:44] VITALS: BMI 18.3
[2018-09-02 08:01] LABS: Hematocrit 35.8 % (40-54); Hemoglobin 11.4 g/dl (13.0-16.5); Mean Corp Hgb Conc 31.8 g/gl (32-36); Mean Corpuscular Hgb 28.1 pg (27.0-32.0); Mean Corpuscular Volume 88.4 fL (80-94); Mean Platelet Vol. 9.3 fl (6.2-12.0); Platelet Count 157 K/mm3 (150-450); RBC Distribution Width CV 14.1 % (11.6-14.6); RBC Distribution Width SD 45.8 fl (35.1-43.9); Red Blood Count 4.05 M/mm3 (4.6-6.2); White Blood Count 6.2 K/mm3 (4.4-11.0)
[2018-09-02 08:04] LABS: Scan Indicated on CBC? Y/N NO
[2018-09-02 08:08] LABS: Anion Gap 5 (5-15); BUN 16 mg/dL (7-18); BUN/Creat Ratio 20.6 RATIO (10-20); Calcium,Total 8.7 mg/dL (8.5-10.1); Chloride 105 mmol/L (98-107); Creatinine, Serum 0.78 mg/dL (0.70-1.30); EST Glomerular Filtration Rate 104 mL/min (>60); Est Glom Filt Rate - Afr Amer 126 mL/min (>60); Glucose 96 mg/dL (74-106); Potassium 4.1 mmol/L (3.5-5.1); Sodium Level 142 mmol/L (136-145)
== END ==
LOC: OLS.WHLEAS 06:35
PROVIDERS: Visit Provider Family Medicine
DX: J44.9 Chronic obstructive pulmonary disease, unspecified (principal); I25.10 Atherosclerotic heart disease of native coronary artery without angina pectoris
CPT/HCPCS: 36415; 80048; 85027

== ENCOUNTER → 2018-09-09 05:00 | Outpatient (REF) | payer MEDICARE, SELFPAY ==
[2018-07-24 21:44] VITALS: BMI 18.3
[2018-09-09 07:43] LABS: Hematocrit 36.2 % (40-54); Hemoglobin 11.5 g/dl (13.0-16.5); Mean Corp Hgb Conc 31.8 g/gl (32-36); Mean Corpuscular Hgb 28.1 pg (27.0-32.0); Mean Corpuscular Volume 88.5 fL (80-94); Platelet Count 162 K/mm3 (150-450); Red Blood Count 4.09 M/mm3 (4.6-6.2); White Blood Count 7.2 K/mm3 (4.4-11.0)
[2018-09-09 07:45] LABS: Scan Indicated on CBC? Y/N NO
[2018-09-09 07:54] LABS: Anion Gap 5 (5-15); BUN 25 mg/dL (7-18); BUN/Creat Ratio 28.2 RATIO (10-20); Calcium,Total 8.6 mg/dL (8.5-10.1); Chloride 106 mmol/L (98-107); Creatinine, Serum 0.89 mg/dL (0.70-1.30); EST Glomerular Filtration Rate 89 mL/min (>60); Est Glom Filt Rate - Afr Amer 108 mL/min (>60); Glucose 97 mg/dL (74-106); Potassium 4.3 mmol/L (3.5-5.1); Sodium Level 142 mmol/L (136-145)
== END ==
LOC: OLS.WHLEAS 05:00
PROVIDERS: Visit Provider Family Medicine
DX: J44.9 Chronic obstructive pulmonary disease, unspecified (principal); I25.10 Atherosclerotic heart disease of native coronary artery without angina pectoris
CPT/HCPCS: 36415; 80048; 85027

== ENCOUNTER → 2018-09-16 04:00 | Outpatient (REF) | payer MEDICARE, SELFPAY ==
[2018-07-24 21:44] VITALS: BMI 18.3
[2018-09-16 09:27] LABS: Hematocrit 37.3 % (40-54); Hemoglobin 11.9 g/dl (13.0-16.5); Mean Corp Hgb Conc 31.9 g/gl (32-36); Mean Corpuscular Hgb 28.3 pg (27.0-32.0); Mean Corpuscular Volume 88.6 fL (80-94); Mean Platelet Vol. 9.7 fl (6.2-12.0); Platelet Count 153 K/mm3 (150-450); RBC Distribution Width CV 14.1 % (11.6-14.6); RBC Distribution Width SD 44.8 fl (35.1-43.9); Red Blood Count 4.21 M/mm3 (4.6-6.2); White Blood Count 5.3 K/mm3 (4.4-11.0)
[2018-09-16 09:33] LABS: Anion Gap 4 (5-15); BUN 20 mg/dL (7-18); BUN/Creat Ratio 23.6 RATIO (10-20); Calcium,Total 8.8 mg/dL (8.5-10.1); Chloride 105 mmol/L (98-107); Creatinine, Serum 0.85 mg/dL (0.70-1.30); EST Glomerular Filtration Rate 95 mL/min (>60); Est Glom Filt Rate - Afr Amer 114 mL/min (>60); Glucose 85 mg/dL (74-106); Sodium Level 142 mmol/L (136-145)
[2018-09-16 09:37] LABS: Scan Indicated on CBC? Y/N NO
== END ==
LOC: OLS.WHLEAS 04:00
PROVIDERS: Visit Provider Family Medicine
DX: J44.9 Chronic obstructive pulmonary disease, unspecified (principal); I10 Essential (primary) hypertension
CPT/HCPCS: 36415; 80048; 85027

== ENCOUNTER → 2018-09-23 04:00 | Outpatient (REF) | payer MEDICARE, SELFPAY ==
[2018-07-24 21:44] VITALS: BMI 18.3
[2018-09-23 08:32] LABS: Absolute Lymphocyte Count 1.21 X10^3/ul (0.83-4.51); Absolute Neutrophil Count 3.3 X10^3/uL (2.0-7.7); Basophil# 0.01 X10^3/uL; Basophil% 0.2 % (0-1); Eosinophil# 0.23 X10^3/uL; Eosinophils% 4.3 % (0-5); Hematocrit 35.9 % (40-54); Hemoglobin 11.3 g/dl (13.0-16.5); Lymphocyte # 1.21 X10^3/ul (4.0); Lymphocyte % 22.4 % (19-41); Mean Corp Hgb Conc 31.5 g/gl (32-36); Mean Corpuscular Volume 88.9 fL (80-94); Mean Platelet Vol. 9.5 fl (6.2-12.0); Monocyte# 0.65 X10^3/uL; Neutrophil # 3.28 X10^3/uL (2.7-7.7); Neutrophil % 60.7 % (47-70); POSITIVE COUNT NO; POSITIVE DIFFERENTIAL NO; POSITIVE MORPHOLOGY NO; Platelet Count 142 K/mm3 (150-450); RBC Distribution Width CV 14.4 % (11.6-14.6); RBC Distribution Width SD 46.8 fl (35.1-43.9); Red Blood Count 4.04 M/mm3 (4.6-6.2); White Blood Count 5.4 K/mm3 (4.4-11.0)
[2018-09-23 08:53] LABS: Anion Gap 4 (5-15); BUN 26 mg/dL (7-18); BUN/Creat Ratio 30.4 RATIO (10-20); Calcium,Total 8.5 mg/dL (8.5-10.1); Chloride 108 mmol/L (98-107); Creatinine, Serum 0.85 mg/dL (0.70-1.30); EST Glomerular Filtration Rate 94 mL/min (>60); Est Glom Filt Rate - Afr Amer 113 mL/min (>60); Glucose 85 mg/dL (74-106); Potassium 4.1 mmol/L (3.5-5.1); Sodium Level 142 mmol/L (136-145)
== END ==
LOC: OLS.WHLEAS 04:00
PROVIDERS: Visit Provider Family Medicine
DX: J44.9 Chronic obstructive pulmonary disease, unspecified (principal); I10 Essential (primary) hypertension
CPT/HCPCS: 36415; 80048; 85025

== ENCOUNTER → 2018-09-30 04:40 | Outpatient (REF) | payer MEDICARE, SELFPAY ==
[2018-07-24 21:44] VITALS: BMI 18.3
[2018-09-30 06:45] LABS: Anion Gap 4 (5-15); BUN 24 mg/dL (7-18); BUN/Creat Ratio 26.8 RATIO (10-20); Calcium,Total 8.6 mg/dL (8.5-10.1); Chloride 105 mmol/L (98-107); EST Glomerular Filtration Rate 88 mL/min (>60); Est Glom Filt Rate - Afr Amer 107 mL/min (>60); Glucose 86 mg/dL (74-106); Potassium 4.1 mmol/L (3.5-5.1); Sodium Level 141 mmol/L (136-145)
[2018-09-30 06:52] LABS: Hemoglobin 11.8 g/dl (13.0-16.5); Mean Corp Hgb Conc 31.9 g/gl (32-36); Mean Corpuscular Hgb 28.2 pg (27.0-32.0); Mean Corpuscular Volume 88.5 fL (80-94); Mean Platelet Vol. 9.8 fl (6.2-12.0); Platelet Count 143 K/mm3 (150-450); RBC Distribution Width CV 14.2 % (11.6-14.6); RBC Distribution Width SD 45.3 fl (35.1-43.9); Red Blood Count 4.18 M/mm3 (4.6-6.2); White Blood Count 6.5 K/mm3 (4.4-11.0)
[2018-09-30 06:57] LABS: Scan Indicated on CBC? Y/N NO
== END ==
LOC: OLS.WHLEAS 04:40
PROVIDERS: Visit Provider Family Medicine
DX: J44.9 Chronic obstructive pulmonary disease, unspecified (principal); I10 Essential (primary) hypertension
CPT/HCPCS: 36415; 80048; 85027

== ENCOUNTER → 2018-10-09 | Outpatient (REF) | payer MEDICARE, MEDICAID, SELFPAY ==
[2018-07-24 21:44] VITALS: BMI 18.3
[2018-10-09 06:40] LABS: Hematocrit 37.5 % (40-54); Hemoglobin 11.9 g/dl (13.0-16.5); Mean Corp Hgb Conc 31.7 g/gl (32-36); Mean Corpuscular Hgb 28.1 pg (27.0-32.0); Mean Corpuscular Volume 88.7 fL (80-94); Mean Platelet Vol. 9.2 fl (6.2-12.0); Platelet Count 141 K/mm3 (150-450); RBC Distribution Width CV 14.5 % (11.6-14.6); Red Blood Count 4.23 M/mm3 (4.6-6.2); White Blood Count 6.1 K/mm3 (4.4-11.0)
[2018-10-09 06:51] LABS: Scan Indicated on CBC? Y/N NO
[2018-10-09 07:09] LABS: Anion Gap 7 (5-15); BUN 19 mg/dL (7-18); BUN/Creat Ratio 24.5 RATIO (10-20); Calcium,Total 8.9 mg/dL (8.5-10.1); Chloride 105 mmol/L (98-107); Creatinine, Serum 0.78 mg/dL (0.70-1.30); EST Glomerular Filtration Rate 104 mL/min (>60); Est Glom Filt Rate - Afr Amer 126 mL/min (>60); Glucose 81 mg/dL (74-106); Sodium Level 143 mmol/L (136-145)
== END | disposition home or self-care (01) ==
LOC: OLS.WHLEAS 04:48
PROVIDERS: Visit Provider Family Medicine
DX: I10 Essential (primary) hypertension (principal); J44.9 Chronic obstructive pulmonary disease, unspecified
CPT/HCPCS: 36415; 80048; 85027

== ENCOUNTER → 2018-10-14 | Outpatient (REF) | payer MEDICARE, SELFPAY ==
[2018-07-24 21:44] VITALS: BMI 18.3
[2018-10-14 08:31] LABS: Anion Gap 9 (5-15); BUN 23 mg/dL (7-18); BUN/Creat Ratio 28.1 RATIO (10-20); Calcium,Total 8.6 mg/dL (8.5-10.1); Chloride 105 mmol/L (98-107); Creatinine, Serum 0.82 mg/dL (0.70-1.30); EST Glomerular Filtration Rate 98 mL/min (>60); Est Glom Filt Rate - Afr Amer 119 mL/min (>60); Glucose 80 mg/dL (74-106); Sodium Level 146 mmol/L (136-145)
[2018-10-14 09:00] LABS: Hematocrit 37.2 % (40-54); Mean Corp Hgb Conc 32.3 g/gl (32-36); Mean Corpuscular Hgb 28.4 pg (27.0-32.0); Mean Corpuscular Volume 88.2 fL (80-94); Mean Platelet Vol. 9.3 fl (6.2-12.0); Platelet Count 149 K/mm3 (150-450); RBC Distribution Width CV 14.4 % (11.6-14.6); RBC Distribution Width SD 46.1 fl (35.1-43.9); Red Blood Count 4.22 M/mm3 (4.6-6.2)
[2018-10-14 09:03] LABS: Scan Indicated on CBC? Y/N NO
[2018-10-14 09:32] LABS: Vitamin B12 514 pg/mL (211-911)
== END | disposition home or self-care (01) ==
LOC: OLS.WHLEAS 04:00
PROVIDERS: Visit Provider Family Medicine
DX: I10 Essential (primary) hypertension (principal); G35 Multiple sclerosis; F03.90 Unspecified dementia, unspecified severity, without behavioral disturbance, psychotic disturbance, mood disturbance, and anxiety
CPT/HCPCS: 36415; 80048; 82607; 85027

== ENCOUNTER → 2018-10-21 | Outpatient (REF) | payer MEDICARE, SELFPAY ==
[2018-07-24 21:44] VITALS: BMI 18.3
[2018-10-21 07:54] LABS: Hemoglobin 12.4 g/dl (13.0-16.5); Mean Corp Hgb Conc 31.8 g/gl (32-36); Mean Corpuscular Hgb 27.9 pg (27.0-32.0); Mean Corpuscular Volume 87.6 fL (80-94); Mean Platelet Vol. 9.5 fl (6.2-12.0); Platelet Count 152 K/mm3 (150-450); RBC Distribution Width CV 14.3 % (11.6-14.6); RBC Distribution Width SD 45.8 fl (35.1-43.9); Red Blood Count 4.45 M/mm3 (4.6-6.2)
[2018-10-21 07:58] LABS: Scan Indicated on CBC? Y/N NO
[2018-10-21 08:03] LABS: Anion Gap 5 (5-15); BUN 19 mg/dL (7-18); BUN/Creat Ratio 22.5 RATIO (10-20); Calcium,Total 8.9 mg/dL (8.5-10.1); Chloride 102 mmol/L (98-107); Creatinine, Serum 0.84 mg/dL (0.70-1.30); EST Glomerular Filtration Rate 95 mL/min (>60); Est Glom Filt Rate - Afr Amer 115 mL/min (>60); Glucose 90 mg/dL (74-106); Potassium 3.8 mmol/L (3.5-5.1); Sodium Level 139 mmol/L (136-145)
== END | disposition home or self-care (01) ==
LOC: OLS.WHLEAS 05:00
PROVIDERS: Visit Provider Family Medicine
DX: F03.90 Unspecified dementia, unspecified severity, without behavioral disturbance, psychotic disturbance, mood disturbance, and anxiety (principal); I10 Essential (primary) hypertension; G35 Multiple sclerosis
CPT/HCPCS: 36415; 80048; 85027

== ENCOUNTER → 2018-10-28 | Outpatient (REF) | payer MEDICARE, SELFPAY ==
[2018-07-24 21:44] VITALS: BMI 18.3
[2018-10-28 07:09] LABS: Mucous, Urine 0 SEEN /hpf (<or=2+); Squamous Epithelial Cells - UA 0 SEEN /hpf (0-5)
[2018-10-28 07:34] LABS: Hematocrit 38.1 % (40-54); Hemoglobin 11.9 g/dl (13.0-16.5); Mean Corp Hgb Conc 31.2 g/gl (32-36); Mean Corpuscular Hgb 27.7 pg (27.0-32.0); Mean Corpuscular Volume 88.8 fL (80-94); Mean Platelet Vol. 9.4 fl (6.2-12.0); Platelet Count 172 K/mm3 (150-450); RBC Distribution Width CV 14.4 % (11.6-14.6); RBC Distribution Width SD 46.5 fl (35.1-43.9); Red Blood Count 4.29 M/mm3 (4.6-6.2); White Blood Count 7.2 K/mm3 (4.4-11.0)
[2018-10-28 07:35] LABS: Scan Indicated on CBC? Y/N NO
[2018-10-28 07:37] LABS: Color, Urine Yellow (Yellow); Glucose, Dipstick Normal (Normal); Ketone-Dipstick 5 mg/dl (Negative); Leukocyte Esterase-Dipstick 500 /ul (Negative); Nitrite-Dipstick Positive (Negative); Occult Blood-Urine 150 /ul (Negative); Protein-Dipstick 500 mg/dl (Negative); Urine Bilirubin Dipstick Negative (Negative); Urine Clarity Turbid (Clear); Urine Urobilinogen 1 mg/dl (Normal)
[2018-10-28 07:51] LABS: Bacteria 2+ /hpf (None Seen); Red Blood Cells-Urine 10-25 SEEN /hpf (0-5); Triple Phosphate Crystals Ur 2+ /hpf (<or=1+); White Blood Cells 25-50 SEEN /hpf (0-5)
[2018-10-28 07:51] LABS: Anion Gap 9 (5-15); BUN 24 mg/dL (7-18); BUN/Creat Ratio 28.2 RATIO (10-20); Calcium,Total 8.8 mg/dL (8.5-10.1); Chloride 106 mmol/L (98-107); Creatinine, Serum 0.85 mg/dL (0.70-1.30); EST Glomerular Filtration Rate 94 mL/min (>60); Est Glom Filt Rate - Afr Amer 114 mL/min (>60); Glucose 91 mg/dL (74-106); Potassium 4.2 mmol/L (3.5-5.1); Sodium Level 144 mmol/L (136-145)
== END | disposition home or self-care (01) ==
LOC: OLS.WHLEAS 05:40
PROVIDERS: Visit Provider Family Medicine
DX: F03.90 Unspecified dementia, unspecified severity, without behavioral disturbance, psychotic disturbance, mood disturbance, and anxiety (principal); I10 Essential (primary) hypertension; G35 Multiple sclerosis; N39.0 Urinary tract infection, site not specified
CPT/HCPCS: 36415; 80048; 81001; 85027; 87077; 87086; 87088; 87186

== ENCOUNTER → 2018-11-04 | Outpatient (REF) | payer MEDICARE, SELFPAY ==
[2018-07-24 21:44] VITALS: BMI 18.3
[2018-11-04 08:33] LABS: Hematocrit 37.9 % (40-54); Hemoglobin 12.3 g/dl (13.0-16.5); Mean Corp Hgb Conc 32.5 g/gl (32-36); Mean Corpuscular Hgb 27.8 pg (27.0-32.0); Mean Corpuscular Volume 85.7 fL (80-94); Mean Platelet Vol. 9.3 fl (6.2-12.0); Platelet Count 161 K/mm3 (150-450); RBC Distribution Width CV 14.1 % (11.6-14.6); Red Blood Count 4.42 M/mm3 (4.6-6.2); White Blood Count 6.7 K/mm3 (4.4-11.0)
[2018-11-04 08:37] LABS: Scan Indicated on CBC? Y/N NO
[2018-11-04 08:51] LABS: Anion Gap 6 (5-15); BUN 19 mg/dL (7-18); BUN/Creat Ratio 17.3 RATIO (10-20); Calcium,Total 8.9 mg/dL (8.5-10.1); Chloride 104 mmol/L (98-107); EST Glomerular Filtration Rate 70 mL/min (>60); Est Glom Filt Rate - Afr Amer 84 mL/min (>60); Glucose 91 mg/dL (74-106); Potassium 4.3 mmol/L (3.5-5.1); Sodium Level 140 mmol/L (136-145)
== END | disposition home or self-care (01) ==
LOC: OLS.WHLEAS 07:00
PROVIDERS: Visit Provider Family Medicine
DX: F03.90 Unspecified dementia, unspecified severity, without behavioral disturbance, psychotic disturbance, mood disturbance, and anxiety (principal); I10 Essential (primary) hypertension; G35 Multiple sclerosis
CPT/HCPCS: 36415; 80048; 85027

== ENCOUNTER → 2018-11-09 09:19 | Outpatient (REF) | payer MEDICARE, SELFPAY ==
[2018-07-24 21:44] VITALS: BMI 18.3
== END ==
LOC: OLS.WHLEAS 09:19
PROVIDERS: Visit Provider Family Medicine
DX: N39.0 Urinary tract infection, site not specified (principal)
CPT/HCPCS: 87077; 87086; 87088; 87186

== ENCOUNTER → 2018-11-11 05:20 | Outpatient (REF) | payer MEDICARE, SELFPAY ==
[2018-07-24 21:44] VITALS: BMI 18.3
[2018-11-11 07:59] LABS: Hematocrit 37.8 % (40-54); Mean Corp Hgb Conc 31.7 g/gl (32-36); Mean Corpuscular Hgb 27.6 pg (27.0-32.0); Mean Corpuscular Volume 86.9 fL (80-94); Mean Platelet Vol. 9.6 fl (6.2-12.0); Platelet Count 173 K/mm3 (150-450); RBC Distribution Width CV 14.1 % (11.6-14.6); RBC Distribution Width SD 44.1 fl (35.1-43.9); Red Blood Count 4.35 M/mm3 (4.6-6.2); White Blood Count 6.4 K/mm3 (4.4-11.0)
[2018-11-11 08:05] LABS: Anion Gap 3 (5-15); BUN 19 mg/dL (7-18); BUN/Creat Ratio 21.7 RATIO (10-20); Calcium,Total 8.9 mg/dL (8.5-10.1); Chloride 104 mmol/L (98-107); Creatinine, Serum 0.88 mg/dL (0.70-1.30); EST Glomerular Filtration Rate 91 mL/min (>60); Est Glom Filt Rate - Afr Amer 110 mL/min (>60); Glucose 89 mg/dL (74-106); Potassium 3.9 mmol/L (3.5-5.1); Sodium Level 139 mmol/L (136-145)
[2018-11-11 08:12] LABS: Scan Indicated on CBC? Y/N NO
== END ==
LOC: OLS.WHLEAS 05:20
PROVIDERS: Visit Provider Family Medicine
DX: J44.9 Chronic obstructive pulmonary disease, unspecified (principal); I10 Essential (primary) hypertension
CPT/HCPCS: 36415; 80048; 85027

== ENCOUNTER → 2018-11-19 17:00 | Outpatient (REF) | payer MEDICARE, SELFPAY ==
[2018-07-24 21:44] VITALS: BMI 18.3
== END ==
LOC: OLS.WHLEAS 17:00
PROVIDERS: Visit Provider Family Medicine
DX: R69 Illness, unspecified (principal)
CPT/HCPCS: 87070; 87077; 87186; 87205

== ENCOUNTER → 2018-12-09 | Outpatient (REF) | payer MEDICARE, SELFPAY ==
[2018-07-24 21:44] VITALS: BMI 18.3
[2018-12-09 07:09] LABS: Hematocrit 37.9 % (40-54); Hemoglobin 11.9 g/dL (13.0-16.5); Mean Corp Hgb Conc 31.4 g/dL (32-36); Mean Corpuscular Hgb 27.9 pg (27.0-32.0); Mean Platelet Vol. 9.3 fl (6.2-12.0); Platelet Count 134 K/mm3 (150-450); RBC Distribution Width CV 14.2 % (11.6-14.6); RBC Distribution Width SD 45.5 fl (35.1-43.9); Red Blood Count 4.26 M/mm3 (4.6-6.2); White Blood Count 5.8 K/mm3 (4.4-11.0)
[2018-12-09 07:25] LABS: Anion Gap 7 (5-15); BUN 27 mg/dL (7-18); BUN/Creat Ratio 30.4 RATIO (10-20); Calcium,Total 8.7 mg/dL (8.5-10.1); Chloride 106 mmol/L (98-107); Creatinine, Serum 0.89 mg/dL (0.70-1.30); EST Glomerular Filtration Rate 89 mL/min (>60); Est Glom Filt Rate - Afr Amer 108 mL/min (>60); Glucose 91 mg/dL (74-106); Potassium 4.2 mmol/L (3.5-5.1); Sodium Level 143 mmol/L (136-145)
== END | disposition home or self-care (01) ==
LOC: OLS.WHLEAS 05:00
PROVIDERS: Visit Provider Family Medicine
DX: N39.0 Urinary tract infection, site not specified (principal); G35 Multiple sclerosis; R13.12 Dysphagia, oropharyngeal phase; R49.9 Unspecified voice and resonance disorder; K52.89 Other specified noninfective gastroenteritis and colitis
CPT/HCPCS: 36415; 80048; 85027

== ENCOUNTER → 2019-01-01 02:00 | Outpatient (REF) | payer MEDICARE, SELFPAY ==
[2018-07-24 21:44] VITALS: BMI 18.3
[2019-01-01 08:24] LABS: Color, Urine Yellow (Yellow); Glucose, Dipstick Normal (Normal); Ketone-Dipstick Negative (Negative); Leukocyte Esterase-Dipstick 100 /ul (Negative); Nitrite-Dipstick Negative (Negative); Occult Blood-Urine 250 /ul (Negative); Protein-Dipstick 100 mg/dl (Negative); Specific Gravity, Urine 1.015 (1.002-1.030); Urine Bilirubin Dipstick Negative (Negative); Urine Clarity Sl. Cloudy (Clear); Urine Urobilinogen Normal (Normal)
== END ==
LOC: OLS.WHLEAS 02:00
PROVIDERS: Visit Provider Family Medicine
DX: G35 Multiple sclerosis (principal); R13.12 Dysphagia, oropharyngeal phase; R49.9 Unspecified voice and resonance disorder; F03.90 Unspecified dementia, unspecified severity, without behavioral disturbance, psychotic disturbance, mood disturbance, and anxiety; R41.841 Cognitive communication deficit; J44.9 Chronic obstructive pulmonary disease, unspecified; R31.0 Gross hematuria
CPT/HCPCS: 81002; 87086; 87088

== ENCOUNTER → 2019-01-06 04:00 | Outpatient (REF) | payer MEDICARE, SELFPAY ==
[2018-07-24 21:44] VITALS: BMI 18.3
[2019-01-06 06:42] LABS: Hematocrit 37.2 % (40-54); Hemoglobin 11.9 g/dL (13.0-16.5); Mean Corpuscular Hgb 27.9 pg (27.0-32.0); Mean Corpuscular Volume 87.3 fL (80-94); Mean Platelet Vol. 8.9 fl (6.2-12.0); Platelet Count 176 K/mm3 (150-450); RBC Distribution Width SD 44.3 fl (35.1-43.9); Red Blood Count 4.26 M/mm3 (4.6-6.2); White Blood Count 5.6 K/mm3 (4.4-11.0)
[2019-01-06 07:00] LABS: Anion Gap 4 (5-15); BUN 17 mg/dL (7-18); BUN/Creat Ratio 20.2 RATIO (10-20); Calcium,Total 8.8 mg/dL (8.5-10.1); Chloride 106 mmol/L (98-107); Creatinine, Serum 0.84 mg/dL (0.70-1.30); EST Glomerular Filtration Rate 95 mL/min (>60); Est Glom Filt Rate - Afr Amer 115 mL/min (>60); Glucose 89 mg/dL (74-106); Potassium 4.2 mmol/L (3.5-5.1); Sodium Level 144 mmol/L (136-145)
== END ==
LOC: OLS.WHLEAS 04:00
PROVIDERS: Visit Provider Family Medicine
DX: N30.01 Acute cystitis with hematuria (principal); G35 Multiple sclerosis; R13.12 Dysphagia, oropharyngeal phase; K52.89 Other specified noninfective gastroenteritis and colitis; R49.9 Unspecified voice and resonance disorder; J44.9 Chronic obstructive pulmonary disease, unspecified
CPT/HCPCS: 36415; 80048; 85027

== ENCOUNTER → 2019-03-03 05:00 | Outpatient (REF) | payer MEDICARE, SELFPAY ==
[2018-07-24 21:44] VITALS: BMI 18.3
[2019-03-03 07:53] LABS: Hematocrit 38.8 % (40-54); Hemoglobin 12.1 g/dL (13.0-16.5); Mean Corp Hgb Conc 31.2 g/dL (32-36); Mean Corpuscular Hgb 27.6 pg (27.0-32.0); Mean Corpuscular Volume 88.4 fL (80-94); Mean Platelet Vol. 9.3 fl (6.2-12.0); Platelet Count 149 K/mm3 (150-450); RBC Distribution Width CV 14.1 % (11.6-14.6); RBC Distribution Width SD 45.6 fl (35.1-43.9); Red Blood Count 4.39 M/mm3 (4.6-6.2); White Blood Count 5.8 K/mm3 (4.4-11.0)
[2019-03-03 07:58] LABS: Anion Gap 4 (5-15); BUN 24 mg/dL (7-18); BUN/Creat Ratio 28.6 RATIO (10-20); Calcium,Total 8.7 mg/dL (8.5-10.1); Chloride 103 mmol/L (98-107); Creatinine, Serum 0.84 mg/dL (0.70-1.30); EST Glomerular Filtration Rate 95 mL/min (>60); Est Glom Filt Rate - Afr Amer 115 mL/min (>60); Glucose 89 mg/dL (74-106); Sodium Level 140 mmol/L (136-145)
== END ==
LOC: OLS.WHLEAS 05:00
PROVIDERS: Visit Provider Family Medicine
DX: J44.9 Chronic obstructive pulmonary disease, unspecified (principal); N30.01 Acute cystitis with hematuria; G35 Multiple sclerosis; R13.12 Dysphagia, oropharyngeal phase; K52.89 Other specified noninfective gastroenteritis and colitis; R49.9 Unspecified voice and resonance disorder
CPT/HCPCS: 36415; 80048; 85027

== ENCOUNTER → 2019-03-31 05:00 | Outpatient (REF) | payer MEDICARE, SELFPAY ==
[2018-07-24 21:44] VITALS: BMI 18.3
[2019-03-31 06:46] LABS: Hematocrit 38.6 % (40-54); Hemoglobin 11.8 g/dL (13.0-16.5); Mean Corp Hgb Conc 30.6 g/dL (32-36); Mean Corpuscular Hgb 27.3 pg (27.0-32.0); Mean Corpuscular Volume 89.4 fL (80-94); Mean Platelet Vol. 9.4 fl (6.2-12.0); Platelet Count 164 K/mm3 (150-450); RBC Distribution Width CV 14.2 % (11.6-14.6); RBC Distribution Width SD 46.1 fl (35.1-43.9); Red Blood Count 4.32 M/mm3 (4.6-6.2); White Blood Count 5.9 K/mm3 (4.4-11.0)
[2019-03-31 07:07] LABS: Anion Gap 4 (5-15); BUN 28 mg/dL (7-18); BUN/Creat Ratio 30.7 RATIO (10-20); Chloride 103 mmol/L (98-107); Creatinine, Serum 0.91 mg/dL (0.70-1.30); EST Glomerular Filtration Rate 87 mL/min (>60); Est Glom Filt Rate - Afr Amer 105 mL/min (>60); Glucose 87 mg/dL (74-106); Potassium 4.1 mmol/L (3.5-5.1); Sodium Level 143 mmol/L (136-145)
== END ==
LOC: OLS.WHLEAS 05:00
PROVIDERS: Visit Provider Family Medicine
DX: N30.01 Acute cystitis with hematuria (principal); G35 Multiple sclerosis; R13.12 Dysphagia, oropharyngeal phase; K52.89 Other specified noninfective gastroenteritis and colitis; R49.9 Unspecified voice and resonance disorder; J44.9 Chronic obstructive pulmonary disease, unspecified
CPT/HCPCS: 36415; 80048; 85027

== ENCOUNTER → 2019-04-14 05:00 | Outpatient (REF) | payer MEDICARE, SELFPAY ==
[2018-07-24 21:44] VITALS: BMI 18.3
[2019-04-14 08:24] LABS: Cholesterol 73 mg/dL (200); High Density Lipoprotein 44 mg/dL; Triglycerides 51 mg/dL; Very Low Density Lipoprotein 10 mg/dL (5-40)
[2019-04-14 10:15] LABS: Vitamin B12 757 pg/mL (211-911)
== END ==
LOC: OLS.WHLEAS 05:00
PROVIDERS: Visit Provider Family Medicine
DX: I25.10 Atherosclerotic heart disease of native coronary artery without angina pectoris (principal); G35 Multiple sclerosis; F03.91 Unspecified dementia, unspecified severity, with behavioral disturbance; R13.12 Dysphagia, oropharyngeal phase; R49.9 Unspecified voice and resonance disorder; R41.841 Cognitive communication deficit; J96.11 Chronic respiratory failure with hypoxia
CPT/HCPCS: 36415; 80061; 82607

== ENCOUNTER → 2019-04-28 05:00 | Outpatient (REF) | payer MEDICARE, SELFPAY ==
[2018-07-24 21:44] VITALS: BMI 18.3
[2019-04-28 07:58] LABS: Hemoglobin 12.5 g/dL (13.0-16.5); Mean Corp Hgb Conc 30.5 g/dL (32-36); Mean Corpuscular Hgb 26.7 pg (27.0-32.0); Mean Corpuscular Volume 87.6 fL (80-94); Mean Platelet Vol. 9.3 fl (6.2-12.0); Platelet Count 192 K/mm3 (150-450); RBC Distribution Width CV 14.9 % (11.6-14.6); RBC Distribution Width SD 47.4 fl (35.1-43.9); Red Blood Count 4.68 M/mm3 (4.6-6.2); White Blood Count 6.2 K/mm3 (4.4-11.0)
[2019-04-28 08:10] LABS: Anion Gap 2 (5-15); BUN 29 mg/dL (7-18); BUN/Creat Ratio 31.9 RATIO (10-20); Calcium,Total 8.6 mg/dL (8.5-10.1); Chloride 106 mmol/L (98-107); Creatinine, Serum 0.91 mg/dL (0.70-1.30); EST Glomerular Filtration Rate 87 mL/min (>60); Est Glom Filt Rate - Afr Amer 105 mL/min (>60); Glucose 89 mg/dL (74-106); Potassium 4.3 mmol/L (3.5-5.1); Sodium Level 142 mmol/L (136-145)
== END ==
LOC: OLS.WHLEAS 05:00
PROVIDERS: Visit Provider Family Medicine
DX: J44.9 Chronic obstructive pulmonary disease, unspecified (principal); N30.01 Acute cystitis with hematuria; G35 Multiple sclerosis; R13.12 Dysphagia, oropharyngeal phase; K52.89 Other specified noninfective gastroenteritis and colitis; R49.9 Unspecified voice and resonance disorder
CPT/HCPCS: 36415; 80048; 85027

== ENCOUNTER → 2019-05-26 04:00 | Outpatient (REF) | payer MEDICARE, SELFPAY ==
[2018-07-24 21:44] VITALS: BMI 18.3
[2019-05-26 06:22] LABS: Hematocrit 38.7 % (40-54); Hemoglobin 11.9 g/dL (13.0-16.5); Mean Corp Hgb Conc 30.7 g/dL (32-36); Mean Corpuscular Hgb 27.2 pg (27.0-32.0); Mean Corpuscular Volume 88.6 fL (80-94); Mean Platelet Vol. 9.6 fl (6.2-12.0); Platelet Count 153 K/mm3 (150-450); RBC Distribution Width CV 15.1 % (11.6-14.6); RBC Distribution Width SD 48.9 fl (35.1-43.9); Red Blood Count 4.37 M/mm3 (4.6-6.2); White Blood Count 6.5 K/mm3 (4.4-11.0)
[2019-05-26 06:38] LABS: Anion Gap 3 (5-15); BUN 27 mg/dL (7-18); BUN/Creat Ratio 36.4 RATIO (10-20); Calcium,Total 8.8 mg/dL (8.5-10.1); Chloride 106 mmol/L (98-107); Creatinine, Serum 0.74 mg/dL (0.70-1.30); EST Glomerular Filtration Rate 110 mL/min (>60); Est Glom Filt Rate - Afr Amer 133 mL/min (>60); Glucose 87 mg/dL (74-106); Potassium 3.6 mmol/L (3.5-5.1); Sodium Level 142 mmol/L (136-145)
== END ==
LOC: OLS.WHLTSB 04:00
PROVIDERS: Family Provider Family Medicine; PCP Family Medicine; Visit Provider Family Medicine
DX: J44.9 Chronic obstructive pulmonary disease, unspecified (principal); N30.01 Acute cystitis with hematuria; G35 Multiple sclerosis; R13.12 Dysphagia, oropharyngeal phase; K52.89 Other specified noninfective gastroenteritis and colitis; R49.9 Unspecified voice and resonance disorder
CPT/HCPCS: 36415; 80048; 85027

== ENCOUNTER → 2019-06-23 05:00 | Outpatient (REF) | payer MEDICARE, MEDICAID, SELFPAY ==
[2018-07-24 21:44] VITALS: BMI 18.3
[2019-06-23 08:34] LABS: Hematocrit 40.5 % (40-54); Hemoglobin 12.2 g/dL (13.0-16.5); Mean Corp Hgb Conc 30.1 g/dL (32-36); Mean Corpuscular Hgb 27.7 pg (27.0-32.0); Mean Platelet Vol. 9.1 fl (6.2-12.0); Platelet Count 179 K/mm3 (150-450); RBC Distribution Width CV 15.4 % (11.6-14.6); RBC Distribution Width SD 51.2 fl (35.1-43.9)
[2019-06-23 08:45] LABS: Anion Gap 2 (5-15); BUN 29 mg/dL (7-18); BUN/Creat Ratio 38.3 RATIO (10-20); Calcium,Total 9.1 mg/dL (8.5-10.1); Chloride 102 mmol/L (98-107); Creatinine, Serum 0.76 mg/dL (0.70-1.30); EST Glomerular Filtration Rate 107 mL/min (>60); Est Glom Filt Rate - Afr Amer 130 mL/min (>60); Glucose 84 mg/dL (74-106); Potassium 4.2 mmol/L (3.5-5.1); Sodium Level 142 mmol/L (136-145)
== END ==
LOC: OLS.WHLEAS 05:00
PROVIDERS: PCP Family Medicine; Visit Provider Family Medicine
DX: J44.9 Chronic obstructive pulmonary disease, unspecified (principal); N30.01 Acute cystitis with hematuria; G35 Multiple sclerosis; R13.12 Dysphagia, oropharyngeal phase; K52.89 Other specified noninfective gastroenteritis and colitis; R49.9 Unspecified voice and resonance disorder
CPT/HCPCS: 36415; 80048; 85027

== ENCOUNTER → 2019-07-21 05:00 | Outpatient (REF) | payer MEDICARE, MEDICAID, SELFPAY ==
[2018-07-24 21:44] VITALS: BMI 18.3
[2019-07-21 07:55] LABS: Hematocrit 39.8 % (40-54); Hemoglobin 11.9 g/dL (13.0-16.5); Mean Corp Hgb Conc 29.9 g/dL (32-36); Mean Corpuscular Hgb 27.6 pg (27.0-32.0); Mean Corpuscular Volume 92.3 fL (80-94); Mean Platelet Vol. 9.6 fl (6.2-12.0); Platelet Count 161 K/mm3 (150-450); RBC Distribution Width CV 15.9 % (11.6-14.6); RBC Distribution Width SD 53.9 fl (35.1-43.9); Red Blood Count 4.31 M/mm3 (4.6-6.2); White Blood Count 5.6 K/mm3 (4.4-11.0)
[2019-07-21 08:06] LABS: Anion Gap 5 (5-15); BUN 27 mg/dL (7-18); BUN/Creat Ratio 32.5 RATIO (10-20); Calcium,Total 8.7 mg/dL (8.5-10.1); Chloride 104 mmol/L (98-107); Creatinine, Serum 0.83 mg/dL (0.70-1.30); EST Glomerular Filtration Rate 96 mL/min (>60); Est Glom Filt Rate - Afr Amer 116 mL/min (>60); Glucose 80 mg/dL (74-106); Potassium 4.3 mmol/L (3.5-5.1); Sodium Level 141 mmol/L (136-145)
== END ==
LOC: OLS.WHLEAS 05:00
PROVIDERS: PCP Family Medicine; Visit Provider Family Medicine
DX: N30.01 Acute cystitis with hematuria (principal); G35 Multiple sclerosis; R13.12 Dysphagia, oropharyngeal phase; K52.89 Other specified noninfective gastroenteritis and colitis; R49.9 Unspecified voice and resonance disorder; J44.9 Chronic obstructive pulmonary disease, unspecified
CPT/HCPCS: 36415; 80048; 85027

== ENCOUNTER → 2019-10-13 05:00 | Outpatient (REF) | payer MEDICARE, MEDICAID, SELFPAY ==
[2018-07-24 21:44] VITALS: BMI 18.3
[2019-10-13 08:34] LABS: Hematocrit 41.8 % (40-54); Hemoglobin 12.8 g/dL (13.0-16.5); Mean Corp Hgb Conc 30.6 g/dL (32-36); Mean Corpuscular Volume 91.5 fL (80-94); Mean Platelet Vol. 9.8 fl (6.2-12.0); Platelet Count 154 K/mm3 (150-450); RBC Distribution Width CV 13.4 % (11.6-14.6); RBC Distribution Width SD 44.9 fl (35.1-43.9); Red Blood Count 4.57 M/mm3 (4.6-6.2); White Blood Count 6.1 K/mm3 (4.4-11.0)
[2019-10-13 09:03] LABS: Anion Gap 4 (5-15); BUN 23 mg/dL (7-18); BUN/Creat Ratio 26.3 RATIO (10-20); Calcium,Total 9.3 mg/dL (8.5-10.1); Chloride 101 mmol/L (98-107); Cholesterol 139 mg/dL (200); Creatinine, Serum 0.87 mg/dL (0.70-1.30); EST Glomerular Filtration Rate 91 mL/min (>60); Est Glom Filt Rate - Afr Amer 110 mL/min (>60); Glucose 80 mg/dL (74-106); High Density Lipoprotein 52 mg/dL; Potassium 4.2 mmol/L (3.5-5.1); Sodium Level 140 mmol/L (136-145); Triglycerides 97 mg/dL; Very Low Density Lipoprotein 19 mg/dL (5-40)
[2019-10-13 11:11] LABS: Vitamin B12 537 pg/mL (211-911)
== END ==
LOC: OLS.WHLEAS 05:00
PROVIDERS: PCP Family Medicine; Visit Provider Family Medicine
DX: J44.9 Chronic obstructive pulmonary disease, unspecified (principal); G35 Multiple sclerosis; F03.91 Unspecified dementia, unspecified severity, with behavioral disturbance; J96.11 Chronic respiratory failure with hypoxia; R41.841 Cognitive communication deficit; R49.9 Unspecified voice and resonance disorder; I25.10 Atherosclerotic heart disease of native coronary artery without angina pectoris; R13.12 Dysphagia, oropharyngeal phase
CPT/HCPCS: 36415; 80048; 80061; 82607; 85027

== ENCOUNTER → 2020-04-13 05:45 | Outpatient (REF) | payer MEDICARE, MEDICAID, SELFPAY ==
[2018-07-24 21:44] VITALS: BMI 18.3
[2020-04-13 07:23] LABS: Hematocrit 45.8 % (40-54); Hemoglobin 14.2 g/dL (13.0-16.5); Mean Corpuscular Hgb 29.5 pg (27.0-32.0); Mean Platelet Vol. 9.4 fl (6.2-12.0); Platelet Count 136 K/mm3 (150-450); RBC Distribution Width CV 13.4 % (11.6-14.6); RBC Distribution Width SD 47.4 fl (35.1-43.9); Red Blood Count 4.82 M/mm3 (4.6-6.2)
[2020-04-13 07:42] LABS: Anion Gap 3 (5-15); BUN 26 mg/dL (7-18); BUN/Creat Ratio 32.5 RATIO (10-20); Calcium,Total 8.8 mg/dL (8.5-10.1); Chloride 105 mmol/L (98-107); Cholesterol 121 mg/dL (200); EST Glomerular Filtration Rate 101 mL/min (>60); Est Glom Filt Rate - Afr Amer 122 mL/min (>60); Glucose 89 mg/dL (74-106); High Density Lipoprotein 55 mg/dL; Sodium Level 139 mmol/L (136-145); Triglycerides 77 mg/dL; Very Low Density Lipoprotein 15 mg/dL (5-40)
[2020-04-13 08:49] LABS: Vitamin B12 576 pg/mL (211-911)
== END ==
LOC: OLS.WHLEAS 05:45
PROVIDERS: PCP Family Medicine; Visit Provider Family Medicine
DX: J44.9 Chronic obstructive pulmonary disease, unspecified (principal); G35 Multiple sclerosis; G30.9 Alzheimer's disease, unspecified; F02.81 Dementia in other diseases classified elsewhere, unspecified severity, with behavioral disturbance; R13.12 Dysphagia, oropharyngeal phase; R49.9 Unspecified voice and resonance disorder; I25.10 Atherosclerotic heart disease of native coronary artery without angina pectoris
CPT/HCPCS: 36415; 80048; 80061; 82607; 85027

== ENCOUNTER → 2020-07-13 05:00 | Outpatient (REF) | payer MEDICARE, MEDICAID, SELFPAY ==
[2018-07-24 21:44] VITALS: BMI 18.3
[2020-07-13 06:51] LABS: Hematocrit 40.5 % (40-54); Hemoglobin 12.1 g/dL (13.0-16.5); Mean Corp Hgb Conc 29.9 g/dL (32-36); Mean Corpuscular Hgb 27.3 pg (27.0-32.0); Mean Corpuscular Volume 91.2 fL (80-94); Mean Platelet Vol. 9.2 fl (6.2-12.0); Platelet Count 148 K/mm3 (150-450); RBC Distribution Width CV 13.7 % (11.6-14.6); RBC Distribution Width SD 46.1 fl (35.1-43.9); Red Blood Count 4.44 M/mm3 (4.6-6.2); White Blood Count 5.1 K/mm3 (4.4-11.0)
[2020-07-13 07:17] LABS: Anion Gap 4 (5-15); BUN 29 mg/dL (7-18); BUN/Creat Ratio 35.7 RATIO (10-20); Chloride 103 mmol/L (98-107); Creatinine, Serum 0.81 mg/dL (0.70-1.30); EST Glomerular Filtration Rate 98 mL/min (>60); Est Glom Filt Rate - Afr Amer 119 mL/min (>60); Glucose 82 mg/dL (74-106); Potassium 3.9 mmol/L (3.5-5.1); Sodium Level 141 mmol/L (136-145)
== END ==
LOC: OLS.WHLEAS 05:00
PROVIDERS: PCP Family Medicine; Visit Provider Family Medicine
DX: J44.9 Chronic obstructive pulmonary disease, unspecified (principal); G35 Multiple sclerosis; G30.9 Alzheimer's disease, unspecified; F02.81 Dementia in other diseases classified elsewhere, unspecified severity, with behavioral disturbance; R13.12 Dysphagia, oropharyngeal phase; R49.9 Unspecified voice and resonance disorder
CPT/HCPCS: 36415; 80048; 85027

== ENCOUNTER → 2021-01-18 05:00 | Outpatient (REF) | payer MEDICARE, MEDICAID, SELFPAY ==
[2021-01-18 11:18] LABS: Hematocrit 42.2 % (40-54); Hemoglobin 12.8 g/dL (13.0-16.5); Mean Corp Hgb Conc 30.3 g/dL (32-36); Mean Corpuscular Hgb 28.3 pg (27.0-32.0); Mean Corpuscular Volume 93.2 fL (80-94); Mean Platelet Vol. 9.6 fl (6.2-12.0); Platelet Count 167 K/mm3 (150-450); RBC Distribution Width CV 13.2 % (11.6-14.6); RBC Distribution Width SD 44.7 fl (35.1-43.9); Red Blood Count 4.53 M/mm3 (4.6-6.2); White Blood Count 5.6 K/mm3 (4.4-11.0)
[2021-01-18 11:35] LABS: ALB/GLOB Ratio 0.9 RATIO (0.9-2.4); AST(SGOT) 17 U/L (15-37); Alanine Aminotransfer ALT/SGPT 18 U/L (16-61); Albumin, Serum 3.1 g/dL (3.2-5.0); Alkaline Phosphatase 77 U/L (45-117); Anion Gap 2 (5-15); BUN 24 mg/dL (7-18); BUN/Creat Ratio 28.6 RATIO (10-20); Calcium,Total 8.8 mg/dL (8.5-10.1); Chloride 102 mmol/L (98-107); Creatinine, Serum 0.84 mg/dL (0.70-1.30); EST Glomerular Filtration Rate 95 mL/min (>60); Est Glom Filt Rate - Afr Amer 115 mL/min (>60); Globulin 3.4 g/dL (2.2-4.2); Glucose 87 mg/dL (74-106); Potassium 4.8 mmol/L (3.5-5.1); Protein, Total 6.5 g/dL (6.4-8.2); Sodium Level 139 mmol/L (136-145)
== END ==
LOC: OLS.WHLEAS 05:00
PROVIDERS: PCP Family Medicine; Visit Provider Family Medicine
DX: J44.9 Chronic obstructive pulmonary disease, unspecified (principal); G35 Multiple sclerosis; G30.9 Alzheimer's disease, unspecified; F02.81 Dementia in other diseases classified elsewhere, unspecified severity, with behavioral disturbance; R49.9 Unspecified voice and resonance disorder; R41.841 Cognitive communication deficit
CPT/HCPCS: 36415; 80053; 85027

== ENCOUNTER → 2021-02-24 08:31 | Outpatient (REF) | payer MEDICARE, MEDICAID, SELFPAY | LOC: OLS.WHLEAS 08:31 | PROVIDERS: PCP Family Medicine; Visit Provider Family Medicine | DX: R50.9 Fever, unspecified (principal); G35 Multiple sclerosis; G30.9 Alzheimer's disease, unspecified; F02.81 Dementia in other diseases classified elsewhere, unspecified severity, with behavioral disturbance; R49.9 Unspecified voice and resonance disorder; R41.841 Cognitive communication deficit | CPT/HCPCS: 87077; 87086; 87088; 87186 ==

== ENCOUNTER → 2021-07-12 | Outpatient (REF) | payer MEDICARE, MEDICAID, SELFPAY ==
[2021-07-12 06:07] LABS: Hematocrit 40.4 % (40-54); Hemoglobin 12.9 g/dL (13.0-16.5); Mean Corp Hgb Conc 31.9 g/dL (32-36); Mean Corpuscular Hgb 28.9 pg (27.0-32.0); Mean Corpuscular Volume 90.4 fL (80-94); Mean Platelet Vol. 9.1 fl (6.2-12.0); Platelet Count 153 K/mm3 (150-450); RBC Distribution Width CV 13.2 % (11.6-14.6); RBC Distribution Width SD 43.7 fl (35.1-43.9); Red Blood Count 4.47 M/mm3 (4.6-6.2); White Blood Count 6.5 K/mm3 (4.4-11.0)
[2021-07-12 06:40] LABS: ALB/GLOB Ratio 1.1 RATIO (0.9-2.4); AST(SGOT) 9 U/L (15-37); Alanine Aminotransfer ALT/SGPT 10 U/L (16-61); Albumin, Serum 3.3 g/dL (3.2-5.0); Alkaline Phosphatase 75 U/L (45-117); Anion Gap 1 (5-15); BUN 22 mg/dL (7-18); BUN/Creat Ratio 27.7 RATIO (10-20); Calcium,Total 9.1 mg/dL (8.5-10.1); Chloride 103 mmol/L (98-107); EST Glomerular Filtration Rate 101 mL/min (>60); Est Glom Filt Rate - Afr Amer 122 mL/min (>60); Globulin 3.1 g/dL (2.2-4.2); Glucose 93 mg/dL (74-106); Protein, Total 6.4 g/dL (6.4-8.2); Sodium Level 139 mmol/L (136-145)
== END | disposition home or self-care (01) ==
LOC: OLS.WHLEAS 05:00
PROVIDERS: PCP Family Medicine; Visit Provider Family Medicine
DX: G35 Multiple sclerosis (principal); G30.9 Alzheimer's disease, unspecified; F02.81 Dementia in other diseases classified elsewhere, unspecified severity, with behavioral disturbance; J44.9 Chronic obstructive pulmonary disease, unspecified; R49.9 Unspecified voice and resonance disorder; R41.841 Cognitive communication deficit
CPT/HCPCS: 36415; 80053; 85027

== ENCOUNTER → 2021-08-15 | Outpatient (REF) | payer MEDICARE, MEDICAID, SELFPAY ==
[2021-08-15 08:04] LABS: Hematocrit 42.2 % (40-54); Hemoglobin 12.7 g/dL (13.0-16.5); Mean Corp Hgb Conc 30.1 g/dL (32-36); Mean Corpuscular Hgb 27.8 pg (27.0-32.0); Mean Corpuscular Volume 92.3 fL (80-94); Mean Platelet Vol. 9.4 fl (6.2-12.0); Platelet Count 334 K/mm3 (150-450); RBC Distribution Width CV 12.8 % (11.6-14.6); RBC Distribution Width SD 43.5 fl (35.1-43.9); Red Blood Count 4.57 M/mm3 (4.6-6.2); White Blood Count 17.2 K/mm3 (4.4-11.0)
[2021-08-15 08:21] LABS: Anion Gap 2 (5-15); BUN 27 mg/dL (7-18); BUN/Creat Ratio 42.6 RATIO (10-20); Calcium,Total 8.5 mg/dL (8.5-10.1); Chloride 102 mmol/L (98-107); Creatinine, Serum 0.63 mg/dL (0.70-1.30); EST Glomerular Filtration Rate 131 mL/min (>60); Est Glom Filt Rate - Afr Amer 158 mL/min (>60); Glucose 149 mg/dL (74-106); Potassium 3.9 mmol/L (3.5-5.1); Sodium Level 139 mmol/L (136-145)
== END | disposition home or self-care (01) ==
LOC: OLS.WHLEAS 07:25
PROVIDERS: PCP Family Medicine; Visit Provider Family Medicine
DX: G35 Multiple sclerosis (principal); G30.9 Alzheimer's disease, unspecified; F02.81 Dementia in other diseases classified elsewhere, unspecified severity, with behavioral disturbance; J96.11 Chronic respiratory failure with hypoxia; R49.9 Unspecified voice and resonance disorder; R41.841 Cognitive communication deficit
CPT/HCPCS: 36415; 80048; 85027